=== PATIENT | female | born 1955 | race Caucasian/White ===

== ENCOUNTER 2022-05-14 15:32 | Inpatient (IN) | payer OTHER ==
[2022-05-14 16:20] LABS: Basophils # (A) 0.1 k/uL (0-0.2); Basophils % (A) 1 %; Eosinophils % (A) 0 %; HCT 37.9 % (34.0-46.0); HGB 12.9 gm/dL (11.4-16.0); Lymphocytes # (A) 2.2 k/uL (1.0-4.8); Lymphocytes % (A) 23 %; MCV 88.1 fL (80.0-100.0); Mean Platelet Volume 8.2; Monocytes # (A) 0.7 k/uL (0-1.0); Monocytes % (A) 7 %; Neutrophils # (A) 6.7 k/uL (1.3-7.7); Neutrophils % (A) 68 %; Platelet Count 254 k/uL (150-450); RDW 12.8 % (11.5-15.5); WBC 9.9 k/uL (3.8-10.6)
[2022-05-14 16:30] LABS: Calcium 9.6 mg/dL (8.4-10.2); Potassium 3.1 mmol/L (3.5-5.1)
--- NOTE | 2022-05-14 16:31 | ED ---
General Adult HPI - General Chief complaint: Psychiatric Symptoms Stated complaint: Psyche Time Seen by Provider: 05/14/22 15:50 Source: patient, EMS, RN notes reviewed, old records reviewed Mode of arrival: EMS Limitations: no limitations - History of Present Illness Initial comments: This is a 66-year-old female presents emergency department from the snf where she was hallucinating and becoming very paranoid according to staff patient was petition to come in to the emergency department to be evaluated. Patient has to self thinks that some of the staff are mean to her and she claims a tractor and roommates left her lying on the floor. Patient denies any physical complaints today. Patient denies any chest pain or abdominal pain. Patient denies any difficulty breathing shortness of breath. Patient denies any fever chills or cough. Patient denies any vomiting or diarrhea. - Related Data Home Medications Medication Instructions Recorded Confirmed Acetaminophen Tab [Tylenol Tab] 500 mg PO Q8H PRN 05/14/22 05/14/22 Aspirin EC [Ecotrin Low Dose] 81 mg PO DAILY@79905/14/22 05/14/22 Clopidogrel [Plavix] 75 mg PO DAILY@79905/14/22 05/14/22 Ezetimibe [Zetia] 10 mg PO HS@199905/14/22 05/14/22 Fluticasone Nasal [place] [Flonase 1 spray EA NOSTRIL DAILY@79905/14/22 05/14/22 Nasal [place]] INSULIN LISPRO (HumaLOG) [humaLOG] See Protocol SQ ACHS 05/14/22 05/14/22 Insulin Detemir (Levemir) [Levemir] 11 unit SQ Q12H 05/14/22 05/14/22 LORazepam 0.5 mg PO Q8H PRN 05/14/22 05/14/22 Levothyroxine Sodium [Synthroid] 150 mcg PO DAILY@59905/14/22 05/14/22 Lidocaine/Menthol [Icy Hot 4%-1% 1 patch TRANSDERM Q12H 05/14/22 05/14/22 Patch] Loratadine 10 mg PO DAILY@79905/14/22 05/14/22 Losartan [Cozaar] 50 mg PO DAILY@79905/14/22 05/14/22 Melatonin 5 mg PO HS@199905/14/22 05/14/22 Methylphenidate HCl [Ritalin] 5 mg PO BID 05/14/22 05/14/22 Metoprolol Succinate (ER) [Toprol 75 mg PO DAILY@0800 05/14/22 05/14/22 Xl] Nicotine 7Mg/24Hr Patch [Habitrol] 1 patch TRANSDERM DAILY@0800 05/14/22 05/14/22 Omeprazole 20 mg PO DAILY@0800 05/14/22 05/14/22 Sertraline [Zoloft] 50 mg PO BID@0800,1600 05/14/22 05/14/22 amLODIPine [Norvasc] 10 mg PO DAILY@0800 05/14/22 05/14/22 fluPHENAZine [Prolixin 5MG] 5 mg PO DAILY@0800 05/14/22 05/14/22 guaiFENesin [Mucinex] 600 mg PO Q12H 05/14/22 05/14/22 hydrALAZINE HCL 25 mg PO Q8H 05/14/22 05/14/22 Allergies Allergy/AdvReac Type Severity Reaction Status Date / Time pregabalin [From Lyrica] Allergy Unknown Verified 05/14/22 17:56 [id number] Reductase Allergy Unknown Verified 05/14/22 17:56 Inhibitor Sulfa (Sulfonamide Allergy Unknown Verified 05/14/22 17:56 Antibiotics) sulfacetamide Allergy Unknown Verified 05/14/22 17:56 [From Sulfacet-R] sulfur [From Sulfacet-R] Allergy Unknown Verified 05/14/22 17:56 Review of Systems ROS Statement: Those systems with pertinent positive or pertinent negative responses have been documented in the HPI. ROS Other: All systems not noted in ROS Statement are negative. Past Medical History Past Medical History: Diabetes Mellitus, Hyperlipidemia, Hypertension, Seizure Disorder, Thyroid Disorder History of Any Multi-Drug Resistant Organisms: None Reported Past Surgical History: Unable to Obtain Past Psychological History: Depression, Schizophrenia Smoking Status: Never smoker Past Alcohol Use History: None Reported Past Drug Use History: None Reported General Exam - General Exam Comments Initial Comments: GENERAL: Patient is well-developed and well-nourished. Patient is nontoxic and well- hydrated and is in mild distress. ENT: Neck is soft and supple. No significant lymphadenopathy is noted. Oropharynx is clear. Moist mucous membranes. Neck has full range of motion without eliciting any pain. EYES: The sclera were anicteric and conjunctiva were pink and moist. Extraocular movements were intact and pupils were equal round and reactive to light. Eyelids were unremarkable. PULMONARY: Unlabored respirations. Good breath sounds bilaterally. No audible rales rhonchi or wheezing was noted. CARDIOVASCULAR: There is a regular rate and rhythm without any murmurs gallops or rubs. ABDOMEN: Soft and nontender with normal bowel sounds. SKIN: Skin is clear with no lesions or rashes and otherwise unremarkable. NEUROLOGIC: Patient is alert and oriented x3. Cranial nerves II through XII are grossly intact. Motor and sensory are also intact. Normal speech, volume and content. Symmetrical smile. MUSCULOSKELETAL: Normal extremities with adequate strength and full range of motion. LYMPHATICS: No significant lymphadenopathy is noted PSYCHIATRIC: Patient does seem to think that staff members her purposely not treating good. Patient denies any suicidal homicidal ideations Limitations: no limitations Course Vital Signs 05/14/22 15:41 Temperature 98.2 F Pulse Rate 79 Respiratory 18 Rate Blood Pressure 100/73 O2 Sat by Pulse 98 Oximetry Medical Decision Making - Medical Decision Making Patient tested positive for COVID. I gave the patient monoclonal antibodies because the COVID diagnosis was not the reason for her admission. She was admitted for her psychiatric problems but could not go to the psychiatric floor because she had COVID. - Lab Data Result diagrams: 05/14/22 16:00 05/14/22 16:00 Lab Results 05/14/22 05/14/22 05/14/22 Range/Units 16:00 16:00 18:50 WBC 9.9 (3.8-10.6) k/uL RBC 4.30 (3.80-5.40) m/uL Hgb 12.9 (11.4-16.0) gm/dL Hct 37.9 (34.0-46.0) % MCV 88.1 (80.0-100.0) fL MCH 30.0 (25.0-35.0) pg MCHC 34.0 (31.0-37.0) g/dL RDW 12.8 (11.5-15.5) % Plt Count 254 (150-450) k/uL MPV 8.2 Neutrophils % 68 % Lymphocytes % 23 % Monocytes % 7 % Eosinophils % 0 % Basophils % 1 % Neutrophils # 6.7 (1.3-7.7) k/uL Lymphocytes # 2.2 (1.0-4.8) k/uL Monocytes # 0.7 (0-1.0) k/uL Eosinophils # 0.0 (0-0.7) k/uL Basophils # 0.1 (0-0.2) k/uL Sodium 137 (137-145) mmol/L Potassium 3.1 L (3.5-5.1) mmol/L Chloride 99 (98-107) mmol/L Carbon Dioxide 24 (22-30) mmol/L Anion Gap 14 mmol/L BUN 32 H (7-17) mg/dL Creatinine 2.03 H (0.52-1.04) mg/dL Est GFR (CKD-EPI)AfAm 29 (>60 ml/min/1.73 sqM) Est GFR (CKD-EPI)NonAf 25 (>60 ml/min/1.73 sqM) Glucose 119 H (74-99) mg/dL Calcium 9.6 (8.4-10.2) mg/dL Coronavirus (PCR) Detected A (Not Detectd) Disposition Clinical Impression: Acute psychosis, COVID-19, Hypokalemia, Renal insufficiency Disposition: ADMITTED IP TO THIS HOSP Referrals: Nonstaff,Physician [Primary Care Provider] - 1-2 days Time of Disposition: 19:46
[2022-05-14] MEDS ORDERED: POTASSIUM CHLORIDE ER 20 MEQ TAB.ER PO STA ×2 (19:29→23:06)
[2022-05-14] MEDS ORDERED: SODIUM CHLORIDE 0.9% 1,000 ML IV ONE (19:50)
--- NOTE | 2022-05-14 19:57 | XR ---
EXAMINATION TYPE: XR chest 2V DATE OF EXAM: 05/14/2022 COMPARISON: NONE HISTORY: Difficulty breathing TECHNIQUE: Frontal and lateral views of the chest are obtained. FINDINGS: There is no focal air space opacity, pleural effusion, or pneumothorax seen. The cardiac silhouette size is within normal limits. The osseous structures are intact. IMPRESSION: No acute cardiopulmonary process.
[2022-05-14] MEDS ORDERED: BEBTELOVIMAB (EUA) 175 MG/2 ML VIAL IV ONE (20:00)
[2022-05-14] MEDS ORDERED: MENTHOL TRANSDERM SCH (23:15)
[2022-05-14] MEDS ORDERED: LIDOCAINE TRANSDERM SCH (23:15)
[2022-05-14] MEDS: guaiFENesin 600 MG TABLET.ER PO SCH (23:17)
[2022-05-14] MEDS: ACETAMINOPHEN TAB 500 MG TAB PO PRN (23:50)
[2022-05-15] MEDS: LEVOTHYROXINE 75 MCG TAB PO SCH (06:35)
[2022-05-15 07:26] LABS: Glucose,Whole Blood 105 mg/dL (70-110)
[2022-05-15] MEDS: INSULIN ASPART (NovoLOG) 100 UNIT/ML VIAL SQ SCH ×4 (08:39→19:43)
[2022-05-15 09:06] LABS: Basophils # (A) 0.04 X 10*3/uL (0.00-0.10); Basophils % (A) 0.6 %; Eosinophils # (A) 0.02 X 10*3/uL (0.04-0.35); Eosinophils % (A) 0.3 %; HCT 34.7 % (37.2-46.3); Immature Grans, Automated 0.4 %; Lymphocytes # (A) 1.38 X 10*3/uL (0.90-5.00); Lymphocytes % (A) 20.1 %; MCH 30.1 pg (27.0-32.0); MCHC 34.6 g/dL (32.0-37.0); Mean Platelet Volume 10.2 fL (9.5-12.2); Monocytes # (A) 0.99 X 10*3/uL (0.20-1.00); Monocytes % (A) 14.4 %; NRBC Per 100 WBC 0 /100 WBCS (0.0-0.0); Neutrophils # (A) 4.42 X 10*3/uL (1.80-7.70); Neutrophils % (A) 64.2 %; Platelet Count 219 X 10*3/uL (140-440); RBC 3.99 X 10*6/uL (4.10-5.20); RDW 12.7 % (11.5-14.5); WBC 6.88 X 10*3/uL (4.50-10.00)
[2022-05-15 09:13] LABS: Anion Gap 13.7 mmol/L (10.00-18.00); BUN/Creat Ratio 20.59 Ratio (12.00-20.00); Blood Urea Nitrogen 27.8 mg/dL (9.0-27.0); Calcium 9.4 mg/dL (8.7-10.3); Magnesium 2.3 mg/dL (1.5-2.4); Non-African American GFR(CKD) 41.4 (60.0-200.0); Potassium 3.7 mmol/L (3.5-5.5)
[2022-05-15] MEDS: amLODIPine 5 MG TAB PO SCH (10:23)
[2022-05-15] MEDS: CHOLECALCIFEROL 125 MCG (5000 IU) TABLET PO SCH (10:23)
[2022-05-15] MEDS: CLOPIDOGREL 75 MG TAB PO SCH (10:23)
[2022-05-15] MEDS: ZINC SULFATE 220 MG CAP PO SCH (10:24)
[2022-05-15] MEDS: METOPROLOL SUCCINATE (ER) 25 MG TAB.ER.24H PO SCH (10:24)
[2022-05-15] MEDS: LORATADINE 10 MG TAB PO SCH (10:24)
[2022-05-15] MEDS: ASPIRIN 81 MG PO SCH (10:24)
[2022-05-15] MEDS: PANTOPRAZOLE 40 MG TABLET PO SCH (10:24)
[2022-05-15] MEDS: ASCORBIC ACID 500 MG TAB PO SCH (10:24)
[2022-05-15] MEDS: FLUTICASONE 50MCG/SPRAY NASAL 16GM EA NOSTRIL SCH (10:30)
[2022-05-15] MEDS: NICOTINE 7MG/24HR PATCH TRANSDERM SCH (10:31)
[2022-05-15] MEDS: guaiFENesin 600 MG TABLET.ER PO SCH ×2 (10:38→19:38)
[2022-05-15] MEDS: ACETAMINOPHEN TAB 500 MG TAB PO PRN ×2 (11:23→19:38)
[2022-05-15 11:50] LABS: Glucose,Whole Blood 120 mg/dL (70-110)
[2022-05-15 12:06] LABS: Amorphous Sediment,Urine Rare /hpf; Appearance,Urine Cloudy (Clear); Bacteria,Urine Rare /hpf; Bilirubin,Urine Negative (Negative); Blood,Urine Trace (Negative); Color,Urine Yellow; Glucose,Urine (UA) Negative (Negative); Ketones,Urine Trace (Negative); Leukocyte Esterase,Urine Large (Negative); Mucus,Urine Rare /hpf; Nitrite,Urine Negative (Negative); PH, Urine 5.5 (5.0-8.0); Protein,Urine 1+ (Negative); RBC,Urine 4 /hpf (0-5); Specific Gravity,Urine 1.018 (1.001-1.035); Squamous Epithelial Cell,Urine <1 /hpf (0-4); Urobilinogen,Urine <2.0 mg/dL (<2.0); WBC,Urine 15 /hpf (0-5)
[2022-05-15 12:12] LABS: Amphetamine Screen,Urine Not Detected (NotDetected); Barbiturate Screen,Urine Not Detected (NotDetected); Benzodiazepines Screen,Urine Detected (NotDetected); Cocaine Screen,Urine Not Detected (NotDetected); Methadone Screen, Urine Not Detected (NotDetected); Opiate Screen,Urine Not Detected (NotDetected); Oxycodone Screen, Urine Not Detected (NotDetected); Phencyclidine Screen,Urine Not Detected (NotDetected); Tricyclic Antidepressant,Urine Not Detected (NotDetected); Urn Cannabinoid Scrn Not Detected (NotDetected)
--- NOTE | 2022-05-15 14:33 | P.HP ---
Psychiatric H&P - . H&P Date: 05/15/22 History & Physical: IDENTIFYING DATA: This patient is a single, unemployed, 66-year-old female with a reported history of seizure disorder who presented to the hospital on 05/14/2022, presenting from [facility] for increased paranoia, suicidal ideation, and self injuriour behavior. HISTORY OF PRESENT ILLNESS: The patient presented to the hospital on 05/14/2022, from [facility] for a psychiatric evaluation. The patient is currently under a court order for mental health treatment from [facility]. The patient presented in the emergency department as disheveled, alert and oriented 2, with poor eye contact, and endorsing suicidal ideation. The patient is reportedly under court order for mental health treatment until 08/18/2022. The patient is currently a resident of [facility] after having suffered a stroke. The patient's brother Lazaro is noted to be her legal guardian. Initially, the plan is to have the patient admitted to the psychiatric unit however she did test positive for covid. Upon evaluation on the medical floor, the patient is a poor historian events leading up to this hospitalization. She is unable to recall why she was brought to the hospital. She is minimal in conversation and appears to be quite somnol ent. When trying to assess for any psychiatric symptoms, the patient is nonspontaneous and selectively quiet. She does acknowledge that her brother would probably be the best answer questions. She does admit to suicidal ideation. Although she does have some psychiatric history, patient is unable to recall what medication she has been previously prescribed. This provider attempted to contact her brother Lazaro Cabello who is her legal guardian at [phone] multiple times today. I have left a HIPAA compliant voicemail in order to get in touch as history is limited. PAST PSYCHIATRIC HISTORY: We are unable to obtain any psychiatric history at this time. Previous medications as per chart review indicates that the patient is on a regimen of Prolixin, Zoloft, and Ritalin. PAST MEDICAL HISTORY: Past Medical History: Diabetes Mellitus, Hyperlipidemia, Hypertension, Seizure Disorder, Thyroid Disorder History of Any Multi-Drug Resistant Organisms: None Reported Past Surgical History: Unable to Obtain Past Psychological History: Depression, Schizophrenia Smoking Status: Never smoker Past Alcohol Use History: None Reported Past Drug Use History: None Reported ALLERGIES: Sulfa, sulfur, pregabalin, statins CHEMICAL DEPENDENCY HISTORY: Unable to determine FAMILY PSYCHIATRIC/SUBSTANCE USE HISTORY: Unable to determine SOCIAL HISTORY: Patient is currently a resident of [facility]. Her brother is her guardian. She is currently under court order for psychiatric treatment. MENTAL STATUS EXAM: General Appearance: Patient appears to be stated age is somnolent, with obese body habitus. Patient appears to have fair hygiene and grooming wearing hospital gown with poor eye contact. Behavior: Patient is lying down in bed without any agitated behavior. She is quite somnolent. Speech: Patient's speech is fluent and nonpressured. Mood/Affect: Patient reports their mood is "tired." Affect is congruent and somnolent. Suicidality/Homicidality: Unable to assess Perceptions: Unable to assess Though content/process: Unable to assess Memory and concentration: Patient is alert and oriented to person at this time. Concentration appears to be poor. Judgment and insight: poor Vital Signs Temp 98.1 F 05/15/22 08:21 Pulse 80 05/15/22 08:21 Resp 15 05/15/22 08:21 BP 153/97 05/15/22 08:21 Pulse Ox 98 05/15/22 08:21 FiO2 Intake & Output 05/14/22 05/15/22 05/15/22 18:59 06:59 18:59 Output Total 300 300 Balance -300 -300 Weight 99.79 kg 99.79 kg Output: Urine 300 300 Straight 300 300 Other: Voiding Method Toilet Laboratory Results - Last 24 Hours 05/14/22 05/14/22 05/14/22 16:00 16:00 18:50 WBC 9.9 RBC 4.30 Hgb 12.9 Hct 37.9 MCV 88.1 MCH 30.0 MCHC 34.0 RDW 12.8 Plt Count 254 MPV 8.2 Immature Gran % (Auto) Absolute Nucleated RBC Neutrophils % 68 Lymphocytes % 23 Monocytes % 7 Eosinophils % 0 Basophils % 1 Immature Gran # Neutrophils # 6.7 Lymphocytes # 2.2 Monocytes # 0.7 Eosinophils # 0.0 Basophils # 0.1 NRBC/100 WBC Diff Sodium 137 Potassium 3.1 L Chloride 99 Carbon Dioxide 24 Anion Gap 14 BUN 32 H Creatinine 2.03 H Est GFR (CKD-EPI)AfAm 29 Est GFR (CKD-EPI)NonAf 25 BUN/Creatinine Ratio Glucose 119 H POC Glucose (mg/dL) POC Glu [employer] Education Teacher ID Calcium 9.6 Magnesium Urine Color Urine Appearance Urine pH Ur Specific [place] Urine Protein Urine Glucose (UA) Urine Ketones Urine Blood Urine Nitrite Urine Bilirubin Urine Urobilinogen Ur Leukocyte Esterase Urine RBC Urine WBC Ur Squamous Epith Cells Amorphous Sediment Urine Bacteria Urine Mucus Urine Opiates Screen Ur Oxycodone Screen Urine Methadone Screen Ur Propoxyphene Screen Ur Barbiturates Screen U Tricyclic Antidepress Ur Phencyclidine Scrn Ur Amphetamines Screen U Methamphetamines Scrn U Benzodiazepines Scrn Urine Cocaine Screen U Marijuana (THC) Screen Coronavirus (PCR) Detected A 05/15/22 05/15/22 05/15/22 06:13 06:13 07:24 WBC 6.88 RBC 3.99 L Hgb 12.0 Hct 34.7 L MCV 87.0 MCH 30.1 MCHC 34.6 RDW 12.7 Plt Count 219 MPV 10.2 Immature Gran % (Auto) 0.4 Absolute Nucleated RBC 0 Neutrophils % 64.2 Lymphocytes % 20.1 Monocytes % 14.4 Eosinophils % 0.3 Basophils % 0.6 Immature Gran # 0.03 Neutrophils # 4.42 Lymphocytes # 1.38 Monocytes # 0.99 Eosinophils # 0.02 L Basophils # 0.04 NRBC/100 WBC Diff 0 Sodium 140 Potassium 3.7 Chloride 103 Carbon Dioxide 23.0 Anion Gap 13.70 BUN 27.8 H Creatinine 1.4 Est GFR (CKD-EPI)AfAm 48.0 L Est GFR (CKD-EPI)NonAf 41.4 L BUN/Creatinine Ratio 20.59 H Glucose 105 POC Glucose (mg/dL) 105 POC Glu Career Technical Education Teacher ID [place] luna Calcium 9.4 Magnesium 2.3 Urine Color Urine Appearance Urine pH Ur Specific [place] Urine Protein Urine Glucose (UA) Urine Ketones Urine Blood Urine Nitrite Urine Bilirubin Urine Urobilinogen Ur Leukocyte Esterase Urine RBC Urine WBC Ur Squamous Epith Cells Amorphous Sediment Urine Bacteria Urine Mucus Urine Opiates Screen Ur Oxycodone Screen Urine Methadone Screen Ur Propoxyphene Screen Ur Barbiturates Screen U Tricyclic Antidepress Ur Phencyclidine Scrn Ur Amphetamines Screen U Methamphetamines Scrn U Benzodiazepines Scrn Urine Cocaine Screen U Marijuana (THC) Screen Coronavirus (PCR) 05/15/22 05/15/22 05/15/22 11:44 11:44 11:47 WBC RBC Hgb Hct MCV MCH MCHC RDW Plt Count MPV Immature Gran % (Auto) Absolute Nucleated RBC Neutrophils % Lymphocytes % Monocytes % Eosinophils % Basophils % Immature Gran # Neutrophils # Lymphocytes # Monocytes # Eosinophils # Basophils # NRBC/100 WBC Diff Sodium Potassium Chloride Carbon Dioxide Anion Gap BUN Creatinine Est GFR (CKD-EPI)AfAm Est GFR (CKD-EPI)NonAf BUN/Creatinine Ratio Glucose POC Glucose (mg/dL) 120 H POC Glu Career Technical Education Teacher ID luna, [place] Calcium Magnesium Urine Color Yellow Urine Appearance Cloudy H Urine pH 5.5 Ur Specific [place] 1.018 Urine Protein 1+ H Urine Glucose (UA) Negative Urine Ketones Trace H Urine Blood Trace H Urine Nitrite Negative Urine Bilirubin Negative Urine Urobilinogen <2.0 Ur Leukocyte Esterase Large H Urine RBC 4 Urine WBC 15 H Ur Squamous Epith Cells <1 Amorphous Sediment Rare H Urine Bacteria Rare H Urine Mucus Rare H Urine Opiates Screen Not Detected Ur Oxycodone Screen Not Detected Urine Methadone Screen Not Detected Ur Propoxyphene Screen Not Detected Ur Barbiturates Screen Not Detected U Tricyclic Antidepress Not Detected Ur Phencyclidine Scrn Not Detected Ur Amphetamines Screen Not Detected U Methamphetamines Scrn Not Detected U Benzodiazepines Scrn Detected H Urine Cocaine Screen Not Detected U Marijuana (THC) Screen Not Detected Coronavirus (PCR) IMPRESSIONS: Acute psychosis; as per history the patient has schizophrenia. -Acute psychosis may been exacerbated by active infection, side effect of Ritalin, prolonged hospitalization, or just an acute exacerbation of chronic schizophrenia. Covid-19 infection PLAN: -At this time patient DOES meet criteria for inpatient psychiatric admission. However, the patient has Covid. -Would recommend the following medication changes/additions: Continue to hold Ritalin. Continue to hold Zoloft. We will restart the patient's antipsychotic of Prolixin at this time. -Will continue to try and obtain collateral information from the patient's guardian. This provider has left a HIPAA compliant voicemail after numerous attempts to try and reach him. -Continue 1:1 sitter for safety -Cannot leave AMA at this time. Patient will need a petition and certification if attempting to leave AMA. -Will continue to follow along -When medically stable, patient is eligible for transfer to a psych bed when available. 05/15/22 14:33
[2022-05-15 16:35] LABS: Glucose,Whole Blood 122 mg/dL (70-110)
[2022-05-15 19:31] LABS: Glucose,Whole Blood 144 mg/dL (70-110)
[2022-05-15] MEDS: EZETIMIBE 10 MG TAB PO SCH (19:38)
[2022-05-15] MEDS: MELATONIN 5 MG TABLET PO SCH (19:38)
--- NOTE | 2022-05-15 22:10 | P.HPIM ---
History of Present Illness H&P Date: 05/15/22 Patient is a 66-year-old female with a known history of hypertension, hyperlipidemia, GERD, diabetes type 2 insulin-dependent, seizure disorder, hypothyroidism, ADD/ADHD, schizophrenia and previous history of smoking was sent from [facility] due to acute psychosis. Patient has been hallucinating and has been becoming very paranoid to staff. Patient was petitioned and was sent to ER. Patient otherwise poor historian. Denies any complaints of chest pain or shortness of breath. Patient has been afebrile admission. Blood pressure 100/73 and pulse 79 respiration 18 pulse ox 98% on room air. Chest x-ray showed no acute cardiopulmonary process. Laboratory showed WBC 6.8 hemoglobin 12.0 and platelets 219, sodium 137 potassium 3.1 chloride 99 BUN 32 and creatinine 2.03 Magnesium 2.3 Urinalysis showed cloudy with 1+ protein and large leukocyte esterase with WBCs 15. UDS is positive for benzodiazepines. Coronavirus PCR detected. Review of Systems Complete review of systems could not be obtained from the patient except as per HPI. Past Medical History Past Medical History: Diabetes Mellitus, GERD/Reflux, Hyperlipidemia, Hypertension, Seizure Disorder, Thyroid Disorder Additional Past Medical History / Comment(s): Hypothyroidism, falls, unspecifies psychosis, constipation, muscle spasm History of Any Multi-Drug Resistant Organisms: None Reported Past Surgical History: Unable to Obtain Past Psychological History: ADD/ADHD, Depression, Schizophrenia Additional Psychological History / Comment(s): acute psychosis Smoking Status: Former smoker Past Alcohol Use History: None Reported Past Drug Use History: None Reported Medications and Allergies Home Medications Medication Instructions Recorded Confirmed Type Acetaminophen Tab [Tylenol Tab] 500 mg PO Q8H PRN 05/14/22 05/14/22 History Aspirin EC [Ecotrin Low Dose] 81 mg PO DAILY@79905/14/22 05/14/22 History Clopidogrel [Plavix] 75 mg PO DAILY@79905/14/22 05/14/22 History Ezetimibe [Zetia] 10 mg PO HS@199905/14/22 05/14/22 History Fluticasone Nasal [place] [Flonase 1 spray EA NOSTRIL DAILY@79905/14/22 05/14/22 History Nasal [place]] INSULIN LISPRO (HumaLOG) [humaLOG] See Protocol SQ ACHS 05/14/22 05/14/22 History Insulin Detemir (Levemir) [Levemir] 11 unit SQ Q12H 05/14/22 05/14/22 History LORazepam 0.5 mg PO Q8H PRN 05/14/22 05/14/22 History Levothyroxine Sodium [Synthroid] 150 mcg PO DAILY@0605/14/22 05/14/22 History Lidocaine/Menthol [Icy Hot 4%-1% 1 patch TRANSDERM Q12H 05/14/22 05/14/22 History Patch] Loratadine 10 mg PO DAILY@0805/14/22 05/14/22 History Losartan [Cozaar] 50 mg PO DAILY@79905/14/22 05/14/22 History Melatonin 5 mg PO HS@199905/14/22 05/14/22 History Methylphenidate HCl [Ritalin] 5 mg PO BID 05/14/22 05/14/22 History Metoprolol Succinate (ER) [Toprol 75 mg PO DAILY@0805/14/22 05/14/22 History Xl] Nicotine 7Mg/24Hr Patch [Habitrol] 1 patch TRANSDERM DAILY@0805/14/22 05/14/22 History Omeprazole 20 mg PO DAILY@0805/14/22 05/14/22 History Sertraline [Zoloft] 50 mg PO BID@0800,1600 05/14/22 05/14/22 History amLODIPine [Norvasc] 10 mg PO DAILY@0800 05/14/22 05/14/22 History fluPHENAZine [Prolixin 5MG] 5 mg PO DAILY@0800 05/14/22 05/14/22 History guaiFENesin [Mucinex] 600 mg PO Q12H 05/14/22 05/14/22 History hydrALAZINE HCL 25 mg PO Q8H 05/14/22 05/14/22 History Allergies Allergy/AdvReac Type Severity Reaction Status Date / Time pregabalin [From Lyrica] Allergy Unknown Verified 05/14/22 17:56 Joyldhi-BPR-RiD Reductase Allergy Unknown Verified 05/14/22 17:56 Inhibitor Sulfa (Sulfonamide Allergy Unknown Verified 05/14/22 17:56 Antibiotics) sulfacetamide Allergy Unknown Verified 05/14/22 17:56 [From Sulfacet-R] sulfur [From Sulfacet-R] Allergy Unknown Verified 05/14/22 17:56 Physical Exam Vitals: Vital Signs Temp Pulse Pulse Resp BP BP Pulse Ox 05/15/22 08:21 98.1 F 80 15 153/97 98 05/15/22 01:54 98.4 F 78 14 114/76 98 05/14/22 23:30 76 16 05/14/22 22:58 98 F 76 16 131/92 97 05/14/22 22:07 73 18 152/98 99 05/14/22 15:41 98.2 F 79 18 100/73 98 Intake and Output 05/14/22 05/15/22 05/15/22 22:59 06:59 14:59 Output Total 300 Balance -300 Output: Urine 300 Straight 300 Other: Voiding Method Toilet Weight 99.79 kg 99.79 kg PHYSICAL EXAMINATION: Patient is lying in the bed comfortably, no acute distress, awake alert bur not communicating HEENT: Normocephalic. Neck is supple. Pupils reactive. Nostrils clear. Oral cavity is moist. Neck reveals no JVD, carotid bruits, or thyromegaly. CHEST EXAMINATION: Trachea is central. Symmetrical expansion. Lung [place] clear to auscultation and percussion. CARDIAC: Normal S1, S2 with no gallops. No murmurs ABDOMEN: Soft. Bowel sounds present. Nontender. No organomegaly. No abdominal bruits. Extremities: reveal no edema. No clubbing or cyanosis Neurologically awake, alert, with well-coordinated movements. No focal deficits noted Skin: No rash or skin lesions. Psychiatric: Coperative. anxious. Musculoskeletal: No joint swelling or deformity. Normal range of motion. Results CBC & Chem 7: 05/16/22 08:03 05/16/22 08:03 Labs: Abnormal Lab Results - Last 24 Hours (Table) 05/14/22 05/14/22 05/15/22 Range/Units 16:00 18:50 06:13 RBC 3.99 L (4.10-5.20) X 10*6/uL Hct 34.7 L (37.2-46.3) % Eosinophils # 0.02 L (0.04-0.35) X 10*3/uL Potassium 3.1 L (3.5-5.1) mmol/L BUN 32 H (7-17) mg/dL Creatinine 2.03 H (0.52-1.04) mg/dL Est GFR (CKD-EPI)AfAm (60.0-200.0) Est GFR (CKD-EPI)NonAf (60.0-200.0) BUN/Creatinine Ratio (12.00-20.00) Ratio Glucose 119 H (74-99) mg/dL Coronavirus (PCR) Detected A (Not Detectd) 05/15/22 Range/Units 06:13 RBC (4.10-5.20) X 10*6/uL Hct (37.2-46.3) % Eosinophils # (0.04-0.35) X 10*3/uL Potassium (3.5-5.1) mmol/L BUN 27.8 H (7-17) mg/dL Creatinine (0.52-1.04) mg/dL Est GFR (CKD-EPI)AfAm 48.0 L (60.0-200.0) Est GFR (CKD-EPI)NonAf 41.4 L (60.0-200.0) BUN/Creatinine Ratio 20.59 H (12.00-20.00) Ratio Glucose (74-99) mg/dL Coronavirus (PCR) (Not Detectd) Thrombosis Risk Factor Assmnt - DVT/VTE Prophylaxis DVT/VTE Prophylaxis: Pharmacologic Prophylaxis ordered Assessment and Plan Assessment: Acute psychosis likely due to worsening symptoms of schizophrenia with infection. Acute COVID-19 infection. Acute kidney injury likely prerenal with creatinine level 2.03 on admission Possible acute urinary tract infection Hypertension Diabetes type 2 insulin-dependent History of seizure disorder Hypothyroidism ADD/ADHD, Depression and schizophrenia Previous history of smoking DVT prophylaxis Lovenox subcu Plan: Patient will be continued on gentle IV hydration. Continue with multivitamin supplementation. Patient was given monoclonal antibodies in the ER. Vitamin supplementation and DVT prophylaxis Lovenox subcu. Current with home medications and follow-up inflammatory markers. Psychiatry was consulted due to acute psychosis. Recommends to hold [place] and continue to hold Zoloft. Continue with Prolixin and follow-up closely. Patient is agreeable for inpatient psychiatric admission once medically stable. Time with Patient: Greater than 30
[2022-05-16] MEDS: LEVOTHYROXINE 75 MCG TAB PO SCH (04:57)
[2022-05-16] MEDS: ACETAMINOPHEN TAB 500 MG TAB PO PRN ×3 (05:01→23:08)
[2022-05-16 07:48] LABS: Glucose,Whole Blood 107 mg/dL (70-110)
[2022-05-16] MEDS: INSULIN ASPART (NovoLOG) 100 UNIT/ML VIAL SQ SCH ×4 (07:50→21:26)
[2022-05-16] MEDS: NICOTINE 7MG/24HR PATCH TRANSDERM SCH (09:09)
[2022-05-16] MEDS: METOPROLOL SUCCINATE (ER) 25 MG TAB.ER.24H PO SCH (09:10)
[2022-05-16] MEDS: LORATADINE 10 MG TAB PO SCH (09:10)
[2022-05-16] MEDS: ASCORBIC ACID 500 MG TAB PO SCH (09:10)
[2022-05-16] MEDS: CLOPIDOGREL 75 MG TAB PO SCH (09:10)
[2022-05-16] MEDS: amLODIPine 5 MG TAB PO SCH (09:10)
[2022-05-16] MEDS: ENOXAPARIN 40 MG/0.4 ML SYRINGE SQ SCH (09:10)
[2022-05-16] MEDS: CHOLECALCIFEROL 125 MCG (5000 IU) TABLET PO SCH (09:10)
[2022-05-16] MEDS: FLUTICASONE 50MCG/SPRAY NASAL 16GM EA NOSTRIL SCH (09:10)
[2022-05-16] MEDS: ZINC SULFATE 220 MG CAP PO SCH (09:10)
[2022-05-16] MEDS: PANTOPRAZOLE 40 MG TABLET PO SCH (09:10)
[2022-05-16] MEDS: ASPIRIN 81 MG PO SCH (09:10)
[2022-05-16 11:43] LABS: Glucose,Whole Blood 129 mg/dL (70-110)
[2022-05-16 11:44] LABS: Basophils # (A) 0.05 X 10*3/uL (0.00-0.10); Basophils % (A) 1.1 %; Eosinophils # (A) 0.04 X 10*3/uL (0.04-0.35); Eosinophils % (A) 0.9 %; HCT 33.8 % (37.2-46.3); HGB 11.2 g/dL (12.0-15.0); Immature Grans, Automated 0.4 %; Lymphocytes # (A) 1.69 X 10*3/uL (0.90-5.00); Lymphocytes % (A) 37.9 %; MCH 29.2 pg (27.0-32.0); MCHC 33.1 g/dL (32.0-37.0); Mean Platelet Volume 10.3 fL (9.5-12.2); Monocytes # (A) 0.53 X 10*3/uL (0.20-1.00); Monocytes % (A) 11.9 %; NRBC Per 100 WBC 0 /100 WBCS (0.0-0.0); Neutrophils # (A) 2.13 X 10*3/uL (1.80-7.70); Neutrophils % (A) 47.8 %; Platelet Count 220 X 10*3/uL (140-440); RBC 3.84 X 10*6/uL (4.10-5.20); WBC 4.46 X 10*3/uL (4.50-10.00)
[2022-05-16 12:04] LABS: African American GFR (CKD) 61.4 (60.0-200.0); Anion Gap 10.7 mmol/L (10.00-18.00); BUN/Creat Ratio 18.55 Ratio (12.00-20.00); Blood Urea Nitrogen 20.4 mg/dL (9.0-27.0); C Reactive Protein 2.7 mg/dL (0.00-0.80); Calcium 8.7 mg/dL (8.7-10.3); Carbon Dioxide 22.3 mmol/L (20.0-27.5); Potassium 3.4 mmol/L (3.5-5.5)
[2022-05-16 16:46] LABS: Glucose,Whole Blood 119 mg/dL (70-110)
[2022-05-16] MEDS: guaiFENesin 600 MG TABLET.ER PO SCH ×2 (16:59→21:25)
[2022-05-16 20:36] LABS: Glucose,Whole Blood 84 mg/dL (70-110)
[2022-05-16] MEDS: EZETIMIBE 10 MG TAB PO SCH (21:25)
[2022-05-16] MEDS: MELATONIN 5 MG TABLET PO SCH (21:25)
[2022-05-17] MEDS ORDERED: lisinopriL 10 MG TAB PO STA (03:02)
[2022-05-17 06:58] LABS: Glucose,Whole Blood 89 mg/dL (70-110)
[2022-05-17] MEDS: INSULIN ASPART (NovoLOG) 100 UNIT/ML VIAL SQ SCH ×4 (07:39→21:57)
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
[2022-05-17] MEDS: CLOPIDOGREL 75 MG TAB PO SCH (08:02)
[2022-05-17] MEDS: ASCORBIC ACID 500 MG TAB PO SCH (08:02)
[2022-05-17] MEDS: CHOLECALCIFEROL 125 MCG (5000 IU) TABLET PO SCH (08:02)
[2022-05-17] MEDS: ZINC SULFATE 220 MG CAP PO SCH (08:02)
[2022-05-17] MEDS: PANTOPRAZOLE 40 MG TABLET PO SCH (08:02)
[2022-05-17] MEDS: ASPIRIN 81 MG PO SCH (08:03)
[2022-05-17] MEDS: ENOXAPARIN 40 MG/0.4 ML SYRINGE SQ SCH (08:03)
[2022-05-17] MEDS: LORATADINE 10 MG TAB PO SCH (08:03)
[2022-05-17] MEDS: METOPROLOL SUCCINATE (ER) 25 MG TAB.ER.24H PO SCH (08:03)
[2022-05-17] MEDS: LEVOTHYROXINE 75 MCG TAB PO SCH (08:03)
[2022-05-17] MEDS: amLODIPine 5 MG TAB PO SCH (08:03)
[2022-05-17] MEDS: NICOTINE 7MG/24HR PATCH TRANSDERM SCH (08:04)
[2022-05-17] MEDS: FLUTICASONE 50MCG/SPRAY NASAL 16GM EA NOSTRIL SCH (08:05)
[2022-05-17 11:42] LABS: Glucose,Whole Blood 131 mg/dL (70-110)
[2022-05-17] MEDS: guaiFENesin 600 MG TABLET.ER PO SCH ×2 (11:48→22:05)
[2022-05-17] MEDS: ACETAMINOPHEN TAB 500 MG TAB PO PRN ×2 (11:48→23:37)
[2022-05-17 16:51] LABS: Glucose,Whole Blood 110 mg/dL (70-110)
[2022-05-17 21:56] LABS: Glucose,Whole Blood 99 mg/dL (70-110)
[2022-05-17] MEDS: hydrALAZINE HCL 25 MG TAB PO SCH (22:04)
[2022-05-17] MEDS: EZETIMIBE 10 MG TAB PO SCH (22:04)
[2022-05-17] MEDS: MELATONIN 5 MG TABLET PO SCH (22:04)
[2022-05-17] MEDS: LOSARTAN 50 MG TAB PO SCH (22:04)
[2022-05-17] MEDS ORDERED: hydrALAZINE HCL 25 MG TAB PO STA (23:54)
--- NOTE | 2022-05-18 00:35 | P.PN ---
Subjective Progress Note Date: 05/16/22 Patient is a 66-year-old female with a known history of hypertension, hyperlipidemia, GERD, diabetes type 2 insulin-dependent, seizure disorder, hypothyroidism, ADD/ADHD, schizophrenia and previous history of smoking was sent from [facility] due to acute psychosis. Patient has been hallucinating and suero s been becoming very paranoid to staff. Patient was petitioned and was sent to ER. Patient otherwise poor historian. Denies any complaints of chest pain or shortness of breath. Patient has been afebrile admission. Blood pressure 100/73 and pulse 79 respiration 18 pulse ox 98% on room air. Chest x-ray showed no acute cardiopulmonary process. Laboratory showed WBC 6.8 hemoglobin 12.0 and platelets 219, sodium 137 potassium 3.1 chloride 99 BUN 32 and creatinine 2.03 Magnesium 2.3 Urinalysis showed cloudy with 1+ protein and large leukocyte esterase with WBCs 15. UDS is positive for benzodiazepines. Coronavirus PCR detected. 05/16/2022 Patient is currently lying in the bed. Awake alert. Sitter at bedside. No complaints of chest pain or shortness of breath. Patient was seen by psychiatry. Patient was started on antipsychotics, Prolixin. Patient currently remained. Otherwise patient is on room air. Laboratory data showed WBC 4.4 hemoglobin 11.2 and platelets 220 Sodium 140 potassium 3.4 chloride 107 bicarb is 22.3 BUN 20.4 and creatinine 1.1 and blood sugar is 114 CRP 2.7 and LDH 158. Current medications reviewed. Patient is on antibiotics in the form of ceftriaxone for possible urinary tract infection. Follow-up urine culture. Objective - Vital Signs Vital signs: Vital Signs Temp 97.3 F L 05/16/22 14:00 Pulse 74 05/16/22 14:00 Resp 17 05/16/22 14:00 BP 155/83 05/16/22 14:00 Pulse Ox 96 05/16/22 14:00 FiO2 Intake & Output 05/15/22 05/16/22 05/16/22 18:59 06:59 18:59 Intake Total 750 Output Total 600 Balance 150 Intake: Intake, IV Titration 750 Amount Sodium Chloride 0.9% 1, 750 000 ml @ 75 mls/hr IV . [id number] [facility] Rx#:[id number] Output: Urine 600 Straight 600 Other: Voiding Method Toilet # Voids 2 # Bowel Movements 1 - Exam PHYSICAL EXAMINATION: Patient is lying in the bed comfortably, no acute distress, awake alert bur not communicating HEENT: Normocephalic. Neck is supple. Pupils reactive. Nostrils clear. Oral cavity is moist. Neck reveals no JVD, carotid bruits, or thyromegaly. CHEST EXAMINATION: Trachea is central. Symmetrical expansion. Lung harrington clear to auscultation and percussion. CARDIAC: Normal S1, S2 with no gallops. No murmurs ABDOMEN: Soft. Bowel sounds present. Nontender. No organomegaly. No abdominal bruits. Extremities: reveal no edema. No clubbing or cyanosis Neurologically awake, alert, with well-coordinated movements. No focal deficits noted Skin: No rash or skin lesions. Psychiatric: Coperative. anxious. Musculoskeletal: No joint swelling or deformity. Normal range of motion. - Labs CBC & Chem 7: 05/16/22 08:03 05/16/22 08:03 Labs: Abnormal Lab Results - Last 24 Hours (Table) 05/15/22 05/15/22 05/16/22 Range/Units 16:33 19:29 08:03 WBC 4.46 L (4.50-10.00) X 10*3/uL RBC 3.84 L (4.10-5.20) X 10*6/uL Hgb 11.2 L (12.0-15.0) g/dL Hct 33.8 L (37.2-46.3) % Potassium (3.5-5.5) mmol/L Est GFR (CKD-EPI)NonAf (60.0-200.0) Glucose (70-110) mg/dL POC Glucose (mg/dL) 122 H 144 H (70-110) mg/dL C-Reactive Protein (0.00-0.80) mg/dL 05/16/22 05/16/22 Range/Units 08:03 11:40 WBC (4.50-10.00) X 10*3/uL RBC (4.10-5.20) X 10*6/uL Hgb (12.0-15.0) g/dL Hct (37.2-46.3) % Potassium 3.4 L (3.5-5.5) mmol/L Est GFR (CKD-EPI)NonAf 53.0 L (60.0-200.0) Glucose 114 H (70-110) mg/dL POC Glucose (mg/dL) 129 H (70-110) mg/dL C-Reactive Protein 2.70 H (0.00-0.80) mg/dL Microbiology - Last 24 Hours (Table) 05/15/22 11:44 Urine Culture - Preliminary Urine,Voided Assessment and Plan Assessment: Acute psychosis likely due to worsening symptoms of schizophrenia with infection. Acute COVID-19 infection. Acute kidney injury likely prerenal with creatinine level 2.03 on admission Possible acute urinary tract infection Hypertension Diabetes type 2 insulin-dependent History of seizure disorder Hypothyroidism ADD/ADHD, Depression and schizophrenia Previous history of smoking DVT prophylaxis Lovenox subcu Plan: Continue with multivitamin supplementation. Patient was given monoclonal antibodies in the ER. Vitamin supplementation and DVT prophylaxis Lovenox subcu. Current with home medications and follow-up inflammatory markers. Psychiatry was consulted due to acute psychosis. Recommends to hold ritalin and continue to hold Zoloft. Continue with Prolixin and follow-up closely. recommends inpatient psychiatric admission once medically stable. Time with Patient: Greater than 30
--- NOTE | 2022-05-18 00:48 | P.PN ---
Subjective Progress Note Date: 05/17/22 Patient is a 66-year-old female with a known history of hypertension, hyperlipidemia, GERD, diabetes type 2 insulin-dependent, seizure disorder, hypothyroidism, ADD/ADHD, schizophrenia and previous history of smoking was sent from [facility] due to acute psychosis. Patient has been hallucinating and suero s been becoming very paranoid to staff. Patient was petitioned and was sent to ER. Patient otherwise poor historian. Denies any complaints of chest pain or shortness of breath. Patient has been afebrile admission. Blood pressure 100/73 and pulse 79 respiration 18 pulse ox 98% on room air. Chest x-ray showed no acute cardiopulmonary process. Laboratory showed WBC 6.8 hemoglobin 12.0 and platelets 219, sodium 137 potassium 3.1 chloride 99 BUN 32 and creatinine 2.03 Magnesium 2.3 Urinalysis showed cloudy with 1+ protein and large leukocyte esterase with WBCs 15. UDS is positive for benzodiazepines. Coronavirus PCR detected. 05/16/2022 Patient is currently lying in the bed. Awake alert. Sitter at bedside. No complaints of chest pain or shortness of breath. Patient was seen by psychiatry. Patient was started on antipsychotics, Prolixin. Patient currently remained. Otherwise patient is on room air. Laboratory data showed WBC 4.4 hemoglobin 11.2 and platelets 220 Sodium 140 potassium 3.4 chloride 107 bicarb is 22.3 BUN 20.4 and creatinine 1.1 and blood sugar is 114 CRP 2.7 and LDH 158. Patient is on antibiotics in the form of ceftriaxone for possible urinary tract infection. Follow-up urine culture. 05/17/2022 Patient is currently sitting on the bed. Awake alert but not oriented. Patient does not know why she is in the hospital. Patient is still psychotic. No compl aints of chest pain. No nausea vomiting. No fever no chills. Tolerating oral diet. IV fluids have been discontinued. Blood sugars controlled. Anticipate discharge to inpatient psychiatric unit in the next 24 to 48 hours. Renal function did improve. Urine culture showed no growth. Current medications reviewed. Objective - Vital Signs Vital signs: Vital Signs Temp 97.9 F 05/17/22 18:56 Pulse 71 05/17/22 18:56 Resp 18 05/17/22 18:56 BP 174/100 05/17/22 19:31 Pulse Ox 98 05/17/22 18:56 FiO2 Intake & Output 05/17/22 05/17/22 05/18/22 06:59 18:59 06:59 Intake Total 150 Output Total 675 400 Balance -525 -400 Intake: Intake, IV Titration 50 Amount cefTRIAXone 1 gm In 50 Sodium Chloride 0.9% 50 ml @ 100 mls/hr IVPB Q24H [facility] Rx#:[id number] Oral 100 Output: Urine 675 400 Straight 325 Other: Voiding Method Toilet Toilet # Voids 2 - Exam PHYSICAL EXAMINATION: Patient is lying in the bed comfortably, no acute distress, awake alert bur not communicating HEENT: Normocephalic. Neck is supple. Pupils reactive. Nostrils clear. Oral cavity is moist. Neck reveals no JVD, carotid bruits, or thyromegaly. CHEST EXAMINATION: Trachea is central. Symmetrical expansion. Lung harrington clear to auscultation and percussion. CARDIAC: Normal S1, S2 with no gallops. No murmurs ABDOMEN: Soft. Bowel sounds present. Nontender. No organomegaly. No abdominal bruits. Extremities: reveal no edema. No clubbing or cyanosis Neurologically awake, alert, with well-coordinated movements. No focal deficits noted Skin: No rash or skin lesions. Psychiatric: Coperative. anxious. Musculoskeletal: No joint swelling or deformity. Normal range of motion. - Labs CBC & Chem 7: 05/16/22 08:03 05/16/22 08:03 Labs: Abnormal Lab Results - Last 24 Hours (Table) 05/17/22 Range/Units 11:41 POC Glucose (mg/dL) 131 H (70-110) mg/dL Microbiology - Last 24 Hours (Table) 05/15/22 11:44 Urine Culture - Final Urine,Voided Assessment and Plan Assessment: Acute psychosis likely due to worsening symptoms of schizophrenia with infection. Acute COVID-19 infection. Acute kidney injury likely prerenal with creatinine level 2.03 on admission Possible acute urinary tract infection Hypertension Diabetes type 2 insulin-dependent History of seizure disorder Hypothyroidism ADD/ADHD, Depression and schizophrenia Previous history of smoking DVT prophylaxis Lovenox subcu Plan: Continue with multivitamin supplementation. Patient was given monoclonal antibodies in the ER. Vitamin supplementation and DVT prophylaxis Lovenox subcu. Current with home medications and follow-up inflammatory markers. Psychiatry was consulted due to acute psychosis. Recommends to hold ritalin and continue to hold Zoloft. Continue with Prolixin and follow-up closely. recommends inpatient psychiatric admission . pt. is medically stable at this time.. Time with Patient: Greater than 30
[2022-05-18 02:06] LABS: African American GFR (CKD) 88 (>60 ml/min/1.73 sqM); Anion Gap 8 mmol/L; Blood Urea Nitrogen 9 mg/dL (7-17); Calcium 8.8 mg/dL (8.4-10.2); Carbon Dioxide 22 mmol/L (22-30); Chloride 108 mmol/L (98-107); Glucose 99 mg/dL (74-99); Non-African American GFR(CKD) 76 (>60 ml/min/1.73 sqM); Potassium 3.1 mmol/L (3.5-5.1); Sodium 138 mmol/L (137-145)
[2022-05-18 03:55] LABS: Glucose,Whole Blood 111 mg/dL (70-110)
--- NOTE | 2022-05-18 05:12 | CT ---
EXAM: CT Angiography Chest With Intravenous Contrast CLINICAL HISTORY: ITS.REASON CT Reason: elevated ddimer TECHNIQUE: Axial computed tomographic angiography images of the chest with intravenous contrast. CTDI is 13.57 mGy and DLP is 377.9 mGy-cm. This CT exam was performed using one or more of the following dose reduction techniques: automated exposure control, adjustment of the mA and/or kV according to patient size, and/or use of iterative reconstruction technique. MIP reconstructed images were created and reviewed. COMPARISON: None FINDINGS: Pulmonary arteries: No pulmonary embolus identified. Aorta: Atherosclerotic changes of the aorta. Mild ectasia of the ascending thoracic aorta measuring 4.1 cm in diameter. No aortic dissection. Lungs: Unremarkable. No mass. No consolidation. Pleural space: Unremarkable. No significant effusion. No pneumothorax. Heart: Unremarkable. No cardiomegaly. No significant pericardial effusion. No evidence of RV dysfunction. Bones/joints: No acute fracture. No dislocation. Soft tissues: Multiple calcified structures in the right breast. Punctate calcification in the left breast. Lymph nodes: Unremarkable. No enlarged lymph nodes. Liver: Hepatic steatosis. Adrenals: Nonspecific mild thickening of the adrenal glands. Kidneys and ureters: Perinephric fat stranding partially visualized. Right renal cysts partially visualized. IMPRESSION: 1. No pulmonary embolus identified. 2. Atherosclerotic changes of the aorta. Mild ectasia of the ascending thoracic aorta measuring 4.1 cm in diameter. No aortic dissection. 3. No acute pulmonary parenchymal abnormality identified.
[2022-05-18] MEDS: hydrALAZINE HCL 25 MG TAB PO SCH ×3 (05:46→21:41)
[2022-05-18] MEDS: LEVOTHYROXINE 75 MCG TAB PO SCH (05:46)
[2022-05-18 07:02] LABS: Glucose,Whole Blood 116 mg/dL (70-110)
[2022-05-18] MEDS: INSULIN ASPART (NovoLOG) 100 UNIT/ML VIAL SQ SCH ×4 (07:18→21:27)
[2022-05-18] MEDS ORDERED: Potassium Replacement Protocol 1 EACH MISC MISCELLANE PRN (07:22)
[2022-05-18] MEDS: ENOXAPARIN 40 MG/0.4 ML SYRINGE SQ SCH (07:47)
[2022-05-18] MEDS: ASCORBIC ACID 500 MG TAB PO SCH (07:48)
[2022-05-18] MEDS: CLOPIDOGREL 75 MG TAB PO SCH (07:48)
[2022-05-18] MEDS: ASPIRIN 81 MG PO SCH (07:48)
[2022-05-18] MEDS: ZINC SULFATE 220 MG CAP PO SCH (07:48)
[2022-05-18] MEDS: METOPROLOL SUCCINATE (ER) 25 MG TAB.ER.24H PO SCH (07:48)
[2022-05-18] MEDS: CHOLECALCIFEROL 125 MCG (5000 IU) TABLET PO SCH (07:48)
[2022-05-18] MEDS: LORATADINE 10 MG TAB PO SCH (07:48)
[2022-05-18] MEDS: LOSARTAN 50 MG TAB PO SCH (07:49)
[2022-05-18] MEDS: POTASSIUM CHLORIDE ER 20 MEQ TAB.ER PO SCH ×2 (07:49→10:10)
[2022-05-18] MEDS: PANTOPRAZOLE 40 MG TABLET PO SCH (07:49)
[2022-05-18] MEDS: NICOTINE 7MG/24HR PATCH TRANSDERM SCH (07:49)
[2022-05-18] MEDS: amLODIPine 5 MG TAB PO SCH (07:49)
[2022-05-18 08:46] LABS: Basophils # (A) 0.04 X 10*3/uL (0.00-0.10); Basophils % (A) 0.6 %; Eosinophils # (A) 0.08 X 10*3/uL (0.04-0.35); Eosinophils % (A) 1.3 %; HCT 33.9 % (37.2-46.3); HGB 11.6 g/dL (12.0-15.0); Immature Grans, Automated 0.3 %; Lymphocytes # (A) 2.44 X 10*3/uL (0.90-5.00); Lymphocytes % (A) 38.7 %; MCH 29.5 pg (27.0-32.0); MCHC 34.2 g/dL (32.0-37.0); MCV 86.3 fL (80.0-97.0); Mean Platelet Volume 10.2 fL (9.5-12.2); Monocytes # (A) 0.54 X 10*3/uL (0.20-1.00); Monocytes % (A) 8.6 %; NRBC Per 100 WBC 0 /100 WBCS (0.0-0.0); Neutrophils # (A) 3.18 X 10*3/uL (1.80-7.70); Neutrophils % (A) 50.5 %; Platelet Count 271 X 10*3/uL (140-440); RBC 3.93 X 10*6/uL (4.10-5.20); RDW 12.7 % (11.5-14.5)
[2022-05-18] MEDS: FLUTICASONE 50MCG/SPRAY NASAL 16GM EA NOSTRIL SCH (10:10)
[2022-05-18 11:02] LABS: Glucose,Whole Blood 143 mg/dL (70-110)
[2022-05-18 11:05] LABS: African American GFR (CKD) 90.3 (60.0-200.0); Anion Gap 12.4 mmol/L (10.00-18.00); BUN/Creat Ratio 9.5 Ratio (12.00-20.00); Blood Urea Nitrogen 7.6 mg/dL (9.0-27.0); Calcium 9.4 mg/dL (8.7-10.3); Carbon Dioxide 21.6 mmol/L (20.0-27.5); Non-African American GFR(CKD) 77.9 (60.0-200.0); Potassium 3.6 mmol/L (3.5-5.5)
[2022-05-18] MEDS: guaiFENesin 600 MG TABLET.ER PO SCH ×2 (11:45→21:41)
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
[2022-05-18 16:00] LABS: Glucose,Whole Blood 115 mg/dL (70-110)
[2022-05-18 20:46] LABS: Glucose,Whole Blood 93 mg/dL (70-110)
[2022-05-18] MEDS: MELATONIN 5 MG TABLET PO SCH (21:41)
[2022-05-18] MEDS: EZETIMIBE 10 MG TAB PO SCH (21:41)
--- NOTE | 2022-05-19 02:23 | P.PN ---
Subjective Progress Note Date: 05/18/22 Patient is a 66-year-old female with a known history of hypertension, hyperlipidemia, GERD, diabetes type 2 insulin-dependent, seizure disorder, hypothyroidism, ADD/ADHD, schizophrenia and previous history of smoking was [facility] from [facility] due to acute psychosis. Patient has been hallucinating and has been becoming very paranoid to staff. Patient was petitioned and was sent to ER. Patient otherwise poor historian. Denies any complaints of chest pain or shortness of breath. Patient has been afebrile admission. Blood pressure 100/73 and pulse 79 respiration 18 pulse ox 98% on room air. Chest x-ray showed no acute cardiopulmonary process. Laboratory showed WBC 6.8 hemoglobin 12.0 and platelets 219, sodium 137 potassium 3.1 chloride 99 BUN 32 and creatinine 2.03 Magnesium 2.3 Urinalysis showed cloudy with 1+ protein and large leukocyte esterase with WBCs 15. UDS is positive for benzodiazepines. Coronavirus PCR detected. 05/16/2022 Patient is currently lying in the bed. Awake alert. Sitter at bedside. No complaints of chest pain or shortness of breath. Patient was seen by psychiatry. Patient was started on antipsychotics, Prolixin. Patient currently remained. Otherwise patient is on room air. Laboratory data showed WBC 4.4 hemoglobin 11.2 and platelets 220 Sodium 140 potassium 3.4 chloride 107 bicarb is 22.3 BUN 20.4 and creatinine 1.1 and blood sugar is 114 CRP 2.7 and LDH 158. Patient is on antibiotics in the form of ceftriaxone for possible urinary tract infection. Follow-up urine culture. 05/17/2022 Patient is currently sitting on the bed. Awake alert but not oriented. Patient does not know why she is in the hospital. Patient is still psychotic. No com plaints of chest pain. No nausea vomiting. No fever no chills. Tolerating oral diet. IV fluids have been discontinued. Blood sugars controlled. Anticipate discharge to inpatient psychiatric unit in the next 24 to 48 hours. Renal function did improve. Urine culture showed no growth. 05/18/2022 Patient is seen today in follow up with psychiatry following. Case management following as well and working on possible med/psych [facility] as patient initially was told would not be accepted to the inpatient psych unit here due to covid. Medications being adjusted per psych. Patient also on IV ceftriaxone for UTI. Patient normally is a resident at [facility] but needs psychiatry clearance. Patient is afebrile and no reports of shortness of breath noted. Patient denies any chest pain. Recommend to continue with vitamin and zinc supplements along with lovenox. Patient is hypertensive and will adjust medications. Review of systems: Constitutional: No reports of fatigue, fever, or chills Cardiovascular: No reports of chest pain or palpitations Respiratory: No reports of shortness of breath or cough GI: No reports of nausea, vomiting, or diarrhea : No reports of dysuria or retention Neurovascular: reports of generalized weakness All medications have been reviewed Active Medications Acetaminophen (Acetaminophen Tab 500 Mg Tab) 500 mg PO Q8H PRN PRN Reason: Pain Last Admin: 05/17/22 23:37 Dose: 500 mg Amlodipine Besylate (Amlodipine 5 Mg Tab) 5 mg PO DAILY [facility] Last Admin: 05/18/22 07:49 Dose: 5 mg Ascorbic Acid (Ascorbic Acid 500 Mg Tab) 500 mg PO DAILY [facility] Last Admin: 05/18/22 07:48 Dose: 500 mg Aspirin (Aspirin 81 Mg) 81 mg PO DAILY [facility] Last Admin: 05/18/22 07:48 Dose: 81 mg Cholecalciferol (Cholecalciferol 125 Mcg (5000 Iu) Tablet) 125 mcg PO DAILY [facility] Last Admin: 05/18/22 07:48 Dose: 125 mcg Clopidogrel Bisulfate (Clopidogrel 75 Mg Tab) 75 mg PO DAILY [facility] Last Admin: 05/18/22 07:48 Dose: 75 mg Ezetimibe (Ezetimibe 10 Mg Tab) 10 mg PO HS [facility] Last Admin: 05/17/22 22:04 Dose: 10 mg Enoxaparin Sodium (Enoxaparin 40 Mg/0.4 Ml Syringe) 40 mg SQ DAILY [facility] Last Admin: 05/18/22 07:47 Dose: 40 mg Fluphenazine HCl (Fluphenazine 5 Mg Tab) 2.5 mg PO BID [facility] Last Admin: 05/18/22 07:48 Dose: 2.5 mg Fluticasone Propionate (Fluticasone 50mcg/[place] Nasal 16gm) 1 spray EA NOSTRIL DAILY [facility] Last Admin: 05/18/22 10:10 Dose: 1 spray Guaifenesin (Guaifenesin 600 Mg Tablet.Er) 600 mg PO Q12H [facility] Last Admin: 05/18/22 11:45 Dose: 600 mg Hydralazine HCl (Hydralazine Hcl 25 Mg Tab) 25 mg PO Q8H [facility] Last Admin: 05/18/22 11:45 Dose: 25 mg Ceftriaxone Sodium 1 gm/ (Sodium Chloride) 50 mls @ 100 mls/hr IVPB Q24H [facility]; Protocol Last Admin: 05/17/22 22:03 Dose: 100 mls/hr Insulin Aspart (Insulin Aspart (Novolog) 100 Unit/Ml Vial) 0 unit SQ ACHS [facility]; Protocol Last Admin: 05/18/22 11:46 Dose: Not Given Levothyroxine Sodium (Levothyroxine 75 Mcg Tab) 150 mcg PO DAILY@0630 [facility] Last Admin: 05/18/22 05:46 Dose: 150 mcg Loratadine (Loratadine 10 Mg Tab) 10 mg PO DAILY [facility] Last Admin: 05/18/22 07:48 Dose: 10 mg Losartan Potassium (Losartan 50 Mg Tab) 50 mg PO DAILY@0800 [facility] Last Admin: 05/18/22 07:49 Dose: 50 mg Melatonin (Melatonin 5 Mg Tablet) 5 mg PO HS [facility] Last Admin: 05/17/22 22:04 Dose: 5 mg Metoprolol Succinate (Metoprolol Succinate (Er) 25 Mg Tab.Er.24h) 75 mg PO DAILY [facility] Last Admin: 05/18/22 07:48 Dose: 75 mg Miscellaneous Information (Potassium Replacement Protocol 1 Each Misc) 1 each MISCELLANE DAILY PRN; Protocol PRN Reason: Per Protocol Nicotine (Nicotine 7mg/24hr Patch) 1 patch TRANSDERM DAILY [facility] Last Admin: 05/18/22 07:49 Dose: 1 patch Pantoprazole Sodium (Pantoprazole 40 Mg Tablet) 40 mg PO AC-[id number] [facility] Last Admin: 05/18/22 07:49 Dose: 40 mg Zinc Sulfate (Zinc Sulfate 220 Mg Cap) 220 mg PO DAILY [facility] Last Admin: 05/18/22 07:48 Dose: 220 mg Physical exam: Patient is sitting up in the chair, awake alert x 1-2. appears older than stated age. HEENT: Normocephalic. Neck is supple. Pupils reactive. Nostrils clear. Oral cavity is moist. Neck reveals no JVD, carotid bruits, or thyromegaly. CHEST EXAMINATION: Trachea is central. Symmetrical expansion. diminished breath sounds with no wheezing or rhonchi noted CARDIAC: S1, S2 muffled ABDOMEN: Soft. Bowel sounds present. Nontender. No organomegaly. No abdominal bruits. Extremities: reveal no edema. No clubbing or cyanosis Neurologically awake, alert, with well-coordinated movements. No focal deficits noted Skin: No rash or skin lesions. Psychiatric: Cooperative. less anxious. Musculoskeletal: No joint swelling or deformity. Normal range of motion. Assessment: Acute psychosis likely due to worsening symptoms of schizophrenia with infectio n. Acute COVID-19 infection. Acute kidney injury likely prerenal with creatinine level 2.03 on admission Possible acute urinary tract infection, present on admission Hypertension Diabetes type 2 insulin-dependent History of seizure disorder Hypothyroidism ADD/ADHD, Depression and schizophrenia Previous history of smoking DVT prophylaxis Lovenox subcu Full code Plan: Recommend to continue with multivitamin supplementation and lovenox. Patient was given monoclonal antibodies in the ER. Psychiatry following due to acute psychosis. Recommends to hold ritalin and hold Zoloft. Continue with Prolixin and follow-up closely. recommends inpatient psychiatric admission. Case management following and working on accepting facilities that can accommodate covid. Possible psych placement here on . Will need to discuss Covid protocol for acceptance to the unit per Dr. Olvera. Will follow up in am. pt. is medically stable at this time.. Blood pressure elevated and will adjust medication and increase norvasc to 10mg daily. Recommend repeat labs in the am and replace electrolytes per protocol. Due to multiple complex medical issues, prognosis is guarded. The impression and plan of care has been dictated by Nica Mistry, Nurse Practitioner as directed. Dr. Johnny MD I have performed a history and examination and MDM of this patient, discussed the same with the dictator, and agree with the dictator's assessment and plan as written ,documented as a scribe. Based on total visit time, I have performed more than 50% of the visit. Objective - Vital Signs Vital signs: Vital Signs Temp 98.0 F 05/18/22 13:57 Pulse 67 05/18/22 13:57 Resp 19 05/18/22 13:57 BP 139/87 05/18/22 13:57 Pulse Ox 99 05/18/22 13:57 FiO2 Intake & Output 05/17/22 05/18/22 05/18/22 18:59 06:59 18:59 Output Total 400 325 Balance -400 -325 Output: Urine 400 325 Other: Voiding Method Toilet # Voids 2 6 - Labs CBC & Chem 7: 05/18/22 06:27 05/18/22 06:27 Labs: Abnormal Lab Results - Last 24 Hours (Table) 05/18/22 05/18/22 05/18/22 Range/Units 00:12 01:30 03:53 RBC (4.10-5.20) X 10*6/uL Hgb (12.0-15.0) g/dL Hct (37.2-46.3) % D-Dimer 0.70 H (<0.60) mg/L FEU Potassium 3.1 L (3.5-5.1) mmol/L Chloride 108 H (98-107) mmol/L BUN (9.0-27.0) mg/dL BUN/Creatinine Ratio (12.00-20.00) Ratio POC Glucose (mg/dL) 111 H (70-110) mg/dL 05/18/22 05/18/22 05/18/22 Range/Units 06:27 06:27 07:00 RBC 3.93 L (4.10-5.20) X 10*6/uL Hgb 11.6 L (12.0-15.0) g/dL Hct 33.9 L (37.2-46.3) % D-Dimer (<0.60) mg/L FEU Potassium (3.5-5.1) mmol/L Chloride (98-107) mmol/L BUN 7.6 L (9.0-27.0) mg/dL BUN/Creatinine Ratio 9.50 L (12.00-20.00) Ratio POC Glucose (mg/dL) 116 H (70-110) mg/dL 05/18/22 Range/Units 11:00 RBC (4.10-5.20) X 10*6/uL Hgb (12.0-15.0) g/dL Hct (37.2-46.3) % D-Dimer (<0.60) mg/L FEU Potassium (3.5-5.1) mmol/L Chloride (98-107) mmol/L BUN (9.0-27.0) mg/dL BUN/Creatinine Ratio (12.00-20.00) Ratio POC Glucose (mg/dL) 143 H (70-110) mg/dL
[2022-05-19] MEDS: hydrALAZINE HCL 25 MG TAB PO SCH ×3 (05:30→21:34)
[2022-05-19] MEDS: LEVOTHYROXINE 75 MCG TAB PO SCH (05:30)
[2022-05-19 06:49] LABS: African American GFR (CKD) 76 (>60 ml/min/1.73 sqM); Anion Gap 12 mmol/L; Blood Urea Nitrogen 9 mg/dL (7-17); Calcium 9.5 mg/dL (8.4-10.2); Carbon Dioxide 22 mmol/L (22-30); Chloride 107 mmol/L (98-107); Glucose 96 mg/dL (74-99); Non-African American GFR(CKD) 66 (>60 ml/min/1.73 sqM); Potassium 3.4 mmol/L (3.5-5.1); Sodium 141 mmol/L (137-145)
[2022-05-19 07:05] LABS: Glucose,Whole Blood 111 mg/dL (70-110)
[2022-05-19] MEDS: LOSARTAN 50 MG TAB PO SCH ×2 (08:23→08:25)
[2022-05-19] MEDS: amLODIPine 5 MG TAB PO SCH ×2 (08:23→08:24)
[2022-05-19] MEDS: ASPIRIN 81 MG PO SCH ×2 (08:24→08:25)
[2022-05-19] MEDS: FLUTICASONE 50MCG/SPRAY NASAL 16GM EA NOSTRIL SCH (08:24)
[2022-05-19] MEDS: PANTOPRAZOLE 40 MG TABLET PO SCH (08:24)
[2022-05-19] MEDS: LORATADINE 10 MG TAB PO SCH (08:24)
[2022-05-19] MEDS: CHOLECALCIFEROL 125 MCG (5000 IU) TABLET PO SCH (08:24)
[2022-05-19] MEDS: METOPROLOL SUCCINATE (ER) 25 MG TAB.ER.24H PO SCH (08:24)
[2022-05-19] MEDS ORDERED: hydrALAZINE HCL 20 MG/ML 1 ML VIAL IVP PRN (08:27)
[2022-05-19] MEDS: INSULIN ASPART (NovoLOG) 100 UNIT/ML VIAL SQ SCH ×4 (08:28→22:34)
[2022-05-19] MEDS ORDERED: POTASSIUM CHLORIDE ER 20 MEQ TAB.ER PO STA (09:31)
[2022-05-19] MEDS: ASCORBIC ACID 500 MG TAB PO SCH (10:15)
[2022-05-19] MEDS: NICOTINE 7MG/24HR PATCH TRANSDERM SCH (10:15)
[2022-05-19] MEDS: ZINC SULFATE 220 MG CAP PO SCH (10:17)
[2022-05-19] MEDS: ENOXAPARIN 40 MG/0.4 ML SYRINGE SQ SCH (10:18)
[2022-05-19] MEDS: ACETAMINOPHEN TAB 500 MG TAB PO PRN ×2 (11:17→19:21)
[2022-05-19 11:21] LABS: Glucose,Whole Blood 138 mg/dL (70-110)
[2022-05-19] MEDS: guaiFENesin 600 MG TABLET.ER PO SCH ×2 (12:07→21:36)
--- NOTE | 2022-05-19 14:30 | P.PN ---
Progress Note - Text Progress Note Date: 05/19/22 Interval History: Patient was seen at bedside. The patient reports currently no suicidal or homicidal ideation, intention, and/or plan. She reports no auditory or visual hallucinations. She denies any paranoia or other delusions. She expresses a desire to be home and discharged. She does report some issues with appetite but has been able to eat meals. She has been adherent with her medications and is not reporting any side effects at this time. Collateral information was provided by the patient's niece who reports that the patient was presenting well and was more spontaneous [facility] The patient reportedly acted out when she was informed she was not going to be sent home from [facility]. As per niece the prolixin caused issues with fatigue, balance, and was far from the patient's baseline. Reportedly while the patient was being tapered off prolixin, the patient contracted covid. The patient was noted to be hallucinating shortly after. The patient's niece vehemently denies any history of psychotic episodes for this patient. Although the patient has a significant history of mood disorder and agitation there has been no previous history of overt psychotic symptoms. Mental Status Exam: General Appearance: Patient appears to be stated age is alert, directable, and cooperative. Behavior: Patient is calmly seated without any agitated behavior. Speech: Patient's speech is fluent and nonpressured. Mood/Affect: Mood is improving mildly, affect is congruent and constricted. Suicidality/Homicidality: Patient denies having any suicidal or homicidal ideation intent or plan. Perceptions: Patient denies any visual hallucinations and denies any auditory hallucinations Though content/process: There is no evidence of any delusional thought content and thought process is linear and goal-directed. Memory and concentration: AOX3, grossly intact for the purposes of this session Judgment and insight: Improving mildly Vital Signs Temp 97.6 F 05/19/22 14:00 Pulse 104 H 05/19/22 14:00 Resp 18 05/19/22 14:00 BP 159/94 05/19/22 14:00 Pulse Ox 98 05/19/22 14:00 FiO2 Intake & Output 05/18/22 05/19/22 05/19/22 18:59 06:59 18:59 Intake Total 100 Output Total 325 250 Balance -225 -250 Intake: Oral 100 Output: Urine 325 250 Other: Voiding Method Bedside Commode Bedside Commode Bedside Commode Diaper Diaper Diaper # Bowel Movements 0 Laboratory Results - Last 24 Hours 05/18/22 05/18/22 05/19/22 15:58 20:44 06:18 Sodium 141 Potassium 3.4 L Chloride 107 Carbon Dioxide 22 Anion Gap 12 BUN 9 Creatinine 0.92 Est GFR (CKD-EPI)AfAm 76 Est GFR (CKD-EPI)NonAf 66 Glucose 96 POC Glucose (mg/dL) 115 H 93 POC Glu Senior Clinical Research Scientist ID Shonda Weeks BoubacarAna hung Calcium 9.5 05/19/22 05/19/22 07:04 11:19 Sodium Potassium Chloride Carbon Dioxide Anion Gap BUN Creatinine Est GFR (CKD-EPI)AfAm Est GFR (CKD-EPI)NonAf Glucose POC Glucose (mg/dL) 111 H 138 H POC Glu Senior Clinical Research Scientist ID Dana Rueda Marissa Calcium Assessment Acute psychosis; currently appears resolved. -Acute psychosis may been exacerbated by active infection, side effect of Ritalin, prolonged hospitalization, urinary tract infection -After collateral information obtained by patient's niece, psychosis was never a symptom of concern for the patient. Questionable as to whether the patient has a history of schizophrenia. Covid-19 infection Plan: -At this time patient DOES NOT meet criteria for inpatient psychiatric admission. -Would recommend the following medication changes/additions: Discontinue prolixin to decrease polypharmacy. No medication recommendations made at this time. It is recommended patient follow-up in the outpatient setting with her primary care physician and outpatient psychiatry if necessary. -Patient is cleared psychiatrically for discharge.
[2022-05-19 17:03] LABS: Glucose,Whole Blood 111 mg/dL (70-110)
[2022-05-19 20:12] LABS: Glucose,Whole Blood 108 mg/dL (70-110)
[2022-05-19] MEDS: EZETIMIBE 10 MG TAB PO SCH (21:34)
[2022-05-19] MEDS: MELATONIN 5 MG TABLET PO SCH (21:34)
[2022-05-20] MEDS: hydrALAZINE HCL 25 MG TAB PO SCH ×3 (03:28→21:33)
[2022-05-20] MEDS: LEVOTHYROXINE 75 MCG TAB PO SCH (05:32)
[2022-05-20] MEDS: ACETAMINOPHEN TAB 500 MG TAB PO PRN ×2 (06:25→20:40)
[2022-05-20 06:56] LABS: Glucose,Whole Blood 115 mg/dL (70-110)
[2022-05-20] MEDS: INSULIN ASPART (NovoLOG) 100 UNIT/ML VIAL SQ SCH ×4 (06:57→21:39)
[2022-05-20 09:14] LABS: African American GFR (CKD) 68 (>60 ml/min/1.73 sqM); Anion Gap 13 mmol/L; Blood Urea Nitrogen 13 mg/dL (7-17); Calcium 9.8 mg/dL (8.4-10.2); Carbon Dioxide 22 mmol/L (22-30); Chloride 107 mmol/L (98-107); Glucose 127 mg/dL (74-99); Non-African American GFR(CKD) 59 (>60 ml/min/1.73 sqM); Potassium 3.8 mmol/L (3.5-5.1); Sodium 142 mmol/L (137-145)
--- NOTE | 2022-05-20 09:16 | P.PN ---
Subjective Progress Note Date: 05/19/22 Patient is a 66-year-old female with a known history of hypertension, hyperlipidemia, GERD, diabetes type 2 insulin-dependent, seizure disorder, hypothyroidism, ADD/ADHD, schizophrenia and previous history of smoking was [facility] due [facility]. Patient has been hallucinating and has been becoming very paranoid to staff. Patient was petitioned and was sent to ER. Patient otherwise poor historian. Denies any complaints of chest pain or shortness of breath. Patient has been afebrile admission. Blood pressure 100/73 and pulse 79 respiration 18 pulse ox 98% on room air. Chest x-ray showed no acute cardiopulmonary process. Laboratory showed WBC 6.8 hemoglobin 12.0 and platelets 219, sodium 137 potassium 3.1 chloride 99 BUN 32 and creatinine 2.03 Magnesium 2.3 Urinalysis showed cloudy with 1+ protein and large leukocyte esterase with WBCs 15. UDS is positive for benzodiazepines. Coronavirus PCR detected. 05/16/2022 Patient is currently lying in the bed. Awake alert. Sitter at bedside. No complaints of chest pain or shortness of breath. Patient was seen by psychiatry. Patient was started on antipsychotics, Prolixin. Patient currently remained. Otherwise patient is on room air. Laboratory data showed WBC 4.4 hemoglobin 11.2 and platelets 220 Sodium 140 potassium 3.4 chloride 107 bicarb is 22.3 BUN 20.4 and creatinine 1.1 and blood sugar is 114 CRP 2.7 and LDH 158. Patient is on antibiotics in the form of ceftriaxone for possible urinary tract infection. Follow-up urine culture. 05/17/2022 Patient is currently sitting on the bed. Awake alert but not oriented. Patient does not know why she is in the hospital. Patient is still psychotic. No com plaints of chest pain. No nausea vomiting. No fever no chills. Tolerating oral diet. IV fluids have been discontinued. Blood sugars controlled. Anticipate discharge to inpatient psychiatric unit in the next 24 to 48 hours. Renal function did improve. Urine culture showed no growth. 05/18/2022 Patient is seen today in follow up with psychiatry following. Case management following as well and working on possible med/psych ecf as patient initially was told would not be accepted to the inpatient psych unit here due to covid. Medications being adjusted per psych. Patient also on IV ceftriaxone for UTI. Patient normally is a resident at [facility] but needs psychiatry clearance. Patient is afebrile and no reports of shortness of breath noted. Patient denies any chest pain. Recommend to continue with vitamin and zinc supplements along with lovenox. Patient is hypertensive and will adjust medications. 05/19/2022 Patient is seen in follow-up this morning calm and cooperative with staff. Patient has been working with physical therapy although continues to be weak. Patient is reporting weakness in bilateral lower extremities. Patient is compliant with medications and has been maintained on IV ceftriaxone and will continue. Patient was Covid positive and case management following working on accepting facilities that can accommodate for continued PT/OT therapy. Potassium mildly low and will replace per protocol repeat labs. Patient is afebrile and denies any chest pain or shortness of breath. Patient is 98% on room air. Review of systems: Constitutional: No reports of fatigue, fever, or chills Cardiovascular: No reports of chest pain or palpitations Respiratory: No reports of shortness of breath or cough GI: No reports of nausea, vomiting, or diarrhea : No reports of dysuria or retention Neurovascular: reports of generalized weakness All medications have been reviewed Physical exam: Patient is sitting up in the chair, awake alert x 1-2. appears older than stated age. HEENT: Normocephalic. Neck is supple. Pupils reactive. Nostrils clear. Oral cavity is moist. Neck reveals no JVD, carotid bruits, or thyromegaly. CHEST EXAMINATION: Trachea is central. Symmetrical expansion. diminished breath sounds with no wheezing or rhonchi noted CARDIAC: S1, S2 muffled ABDOMEN: Soft. Bowel sounds present. Nontender. No organomegaly. No abdominal bruits. Extremities: reveal no edema. No clubbing or cyanosis Neurologically awake, alert, with well-coordinated movements. No focal deficits noted Skin: No rash or skin lesions. Psychiatric: Cooperative. less anxious. Musculoskeletal: No joint swelling or deformity. Normal range of motion. Assessment: Acute psychosis likely due to worsening symptoms of schizophrenia with infection. Acute COVID-19 infection. Acute kidney injury likely prerenal with creatinine level 2.03 on admission Possible acute urinary tract infection, present on admission Hypertension Diabetes type 2 insulin-dependent History of seizure disorder Hypothyroidism ADD/ADHD, Depression and schizophrenia Previous history of smoking DVT prophylaxis Lovenox subcu Full code Plan: Recommend to continue with multivitamin supplementation and lovenox. Patient was given monoclonal antibodies in the ER. Psychiatry following due to acute psychosis. Recommends to hold ritalin and hold Zoloft. Continue with Prolixin and follow-up closely. recommends inpatient psychiatric admission. Case management following and working on accepting facilities that can accommodate covid. Possible psych placement here on if patient is 10 days out of positive Covid results. pt. is medically stable at this time.. Blood pressure elevated and have adjusted medication Recommend repeat labs in the am and replace electrolytes per protocol. Due to multiple complex medical issues, prognosis is guarded. The impression and plan of care has been dictated by Nica Mistry, Nurse Practitioner as directed. Dr. Johnny MD I have performed a history and examination and MDM of this patient, discussed the same with the dictator, and agree with the dictator's assessment and plan as written ,documented as a scribe. Based on total visit time, I have performed more than 50% of the visit. Objective - Vital Signs Vital signs: Vital Signs Temp 98.6 F 05/20/22 02:00 Pulse 86 05/20/22 02:00 Resp 17 05/20/22 02:00 BP 150/99 05/20/22 02:00 Pulse Ox 99 05/20/22 02:00 FiO2 Intake & Output 05/19/22 05/20/22 05/20/22 18:59 06:59 18:59 Output Total 475 Balance -475 Output: Urine 475 Straight 475 Other: Voiding Method Bedside Commode Bedside Commode Diaper Diaper External Catheter # Voids 1 # Bowel Movements 1 - Labs CBC & Chem 7: 05/18/22 06:27 05/19/22 06:18 Labs: Abnormal Lab Results - Last 24 Hours (Table) 05/19/22 05/19/22 05/20/22 Range/Units 11:19 17:01 06:54 POC Glucose (mg/dL) 138 H 111 H 115 H (70-110) mg/dL
[2022-05-20] MEDS: CHOLECALCIFEROL 125 MCG (5000 IU) TABLET PO SCH (09:54)
[2022-05-20] MEDS: LORATADINE 10 MG TAB PO SCH (09:54)
[2022-05-20] MEDS: METOPROLOL SUCCINATE (ER) 25 MG TAB.ER.24H PO SCH (09:54)
[2022-05-20] MEDS: ZINC SULFATE 220 MG CAP PO SCH (09:54)
[2022-05-20] MEDS: ASCORBIC ACID 500 MG TAB PO SCH (09:54)
[2022-05-20] MEDS: ENOXAPARIN 40 MG/0.4 ML SYRINGE SQ SCH (09:54)
[2022-05-20] MEDS: CLOPIDOGREL 75 MG TAB PO SCH (09:54)
[2022-05-20] MEDS: amLODIPine 5 MG TAB PO SCH (09:54)
[2022-05-20] MEDS: NICOTINE 7MG/24HR PATCH TRANSDERM SCH (09:55)
[2022-05-20] MEDS: FLUTICASONE 50MCG/SPRAY NASAL 16GM EA NOSTRIL SCH (09:55)
[2022-05-20 11:56] LABS: Glucose,Whole Blood 110 mg/dL (70-110)
[2022-05-20] MEDS: guaiFENesin 600 MG TABLET.ER PO SCH ×2 (11:58→21:33)
[2022-05-20] MEDS: TAMSULOSIN 0.4 MG CAP.ER.24H PO SCH (14:13)
[2022-05-20 16:17] LABS: Glucose,Whole Blood 102 mg/dL (70-110)
[2022-05-20 20:46] LABS: Glucose,Whole Blood 107 mg/dL (70-110)
[2022-05-20] MEDS: EZETIMIBE 10 MG TAB PO SCH (21:33)
[2022-05-20] MEDS: MELATONIN 5 MG TABLET PO SCH (21:33)
[2022-05-21] MEDS: hydrALAZINE HCL 25 MG TAB PO SCH ×2 (04:11→11:56)
[2022-05-21] MEDS: ACETAMINOPHEN TAB 500 MG TAB PO PRN (04:11)
[2022-05-21] MEDS: LEVOTHYROXINE 75 MCG TAB PO SCH (05:31)
--- NOTE | 2022-05-21 05:49 | P.PN ---
Subjective Progress Note Date: 05/20/22 Patient is a 66-year-old female with a known history of hypertension, hyperlipidemia, GERD, diabetes type 2 insulin-dependent, seizure disorder, hypothyroidism, ADD/ADHD, schizophrenia and previous history of smoking was [facility] due to acute psychosis. Patient has been hallucinating and has been becoming very paranoid to staff. Patient was petitioned and was sent to ER. Patient otherwise poor historian. Denies any complaints of chest pain or shortness of breath. Patient has been afebrile admission. Blood pressure 100/73 and pulse 79 respiration 18 pulse ox 98% on room air. Chest x-ray showed no acute cardiopulmonary process. Laboratory showed WBC 6.8 hemoglobin 12.0 and platelets 219, sodium 137 potassium 3.1 chloride 99 BUN 32 and creatinine 2.03 Magnesium 2.3 Urinalysis showed cloudy with 1+ protein and large leukocyte esterase with WBCs 15. UDS is positive for benzodiazepines. Coronavirus PCR detected. 05/16/2022 Patient is currently lying in the bed. Awake alert. Sitter at bedside. No complaints of chest pain or shortness of breath. Patient was seen by psychiatry. Patient was started on antipsychotics, Prolixin. Patient currently remained. Otherwise patient is on room air. Laboratory data showed WBC 4.4 hemoglobin 11.2 and platelets 220 Sodium 140 potassium 3.4 chloride 107 bicarb is 22.3 BUN 20.4 and creatinine 1.1 and blood sugar is 114 CRP 2.7 and LDH 158. Patient is on antibiotics in the form of ceftriaxone for possible urinary tract infection. Follow-up urine culture. 05/17/2022 Patient is currently sitting on the bed. Awake alert but not oriented. Patient does not know why she is in the hospital. Patient is still psychotic. No com plaints of chest pain. No nausea vomiting. No fever no chills. Tolerating oral diet. IV fluids have been discontinued. Blood sugars controlled. Anticipate discharge to inpatient psychiatric unit in the next 24 to 48 hours. Renal function did improve. Urine culture showed no growth. 05/18/2022 Patient is seen today in follow up with psychiatry following. Case management following as well and working on possible med/psych ecf as patient initially was told would not be accepted to the inpatient psych unit here due to covid. Medications being adjusted per psych. Patient also on IV ceftriaxone for UTI. Patient normally is a resident at [facility] but needs psychiatry clearance. Patient is afebrile and no reports of shortness of breath noted. Patient denies any chest pain. Recommend to continue with vitamin and zinc supplements along with lovenox. Patient is hypertensive and will adjust medications. 05/19/2022 Patient is seen in follow-up this morning calm and cooperative with staff. Patient has been working with physical therapy although continues to be weak. Patient is reporting weakness in bilateral lower extremities. Patient is compliant with medications and has been maintained on IV ceftriaxone and will continue. Patient was Covid positive and case management following working on accepting facilities that can accommodate for continued PT/OT therapy. Potassium mildly low and will replace per protocol repeat labs. Patient is afebrile and denies any chest pain or shortness of breath. Patient is 98% on room air. 05/20/2022 Patient is evaluated today and is currently sitting up in bed on room air and denies any chest pain or shortness of breath. Per nursing staff patient having some difficulty with urinating and will add flomax. Patient denies any burning or pain with urination. Patient being followed by psychiatry and stable for ECF once medically cleared and will not require psych placement recommending to continue with current medications. Repeat potassium improved and encouraged oral intake. PT/OT following. Review of systems: Constitutional: No reports of fatigue, fever, or chills Cardiovascular: No reports of chest pain or palpitations Respiratory: No reports of shortness of breath or cough GI: No reports of nausea, vomiting, or diarrhea : No reports of dysuria or retention Neurovascular: reports of generalized weakness All medications have been reviewed Physical exam: Patient is sitting up in the bed, awake alert x 1-2. appears older than stated age. HEENT: Normocephalic. Neck is supple. Pupils reactive. Nostrils clear. Oral cavity is moist. Neck reveals no JVD, carotid bruits, or thyromegaly. CHEST EXAMINATION: Trachea is central. Symmetrical expansion. diminished breath sounds with no wheezing or rhonchi noted CARDIAC: S1, S2 muffled ABDOMEN: Soft. Bowel sounds present. Nontender. No organomegaly. No abdominal bruits. Extremities: reveal no edema. No clubbing or cyanosis Neurologically awake, alert, with well-coordinated movements. No focal deficits noted Skin: No rash or skin lesions. Psychiatric: Cooperative. less anxious. Musculoskeletal: No joint swelling or deformity. Normal range of motion. Assessment: Acute psychosis likely due to worsening symptoms of schizophrenia with infect ion. Acute COVID-19 infection. Acute kidney injury likely prerenal with creatinine level 2.03 on admission Possible acute urinary tract infection, present on admission Hypertension Diabetes type 2 insulin-dependent History of seizure disorder Hypothyroidism ADD/ADHD Depression and schizophrenia Previous history of smoking DVT prophylaxis Lovenox subcu Full code Plan: Recommend to continue with multivitamin supplementation and lovenox. Patient was given monoclonal antibodies in the ER. Currently room air and denies shortness of breath. Psychiatry following due to acute psychosis. Recommends to continue current medication regimen and will not require inpatient psych placement. Due to multiple complex medical issues, prognosis is guarded. Plan is to return to [facility] with possible discharge in 24 hours. The impression and plan of care has been dictated by Nica Mistry, Nurse Practitioner as directed. Dr. Johnny MD I have performed a history and examination and MDM of this patient, discussed the same with the dictator, and agree with the dictator's assessment and plan as written ,documented as a scribe. Based on total visit time, I have performed more than 50% of the visit. Objective - Vital Signs Vital signs: Vital Signs Temp 97.8 F 05/20/22 08:00 Pulse 99 05/20/22 08:00 Resp 18 05/20/22 08:00 BP 146/92 05/20/22 08:00 Pulse Ox 98 05/20/22 08:00 FiO2 Intake & Output 05/19/22 05/20/22 05/20/22 18:59 06:59 18:59 Output Total 475 Balance -475 Output: Urine 475 Straight 475 Other: Voiding Method Bedside Commode Bedside Commode Diaper Diaper External Catheter # Voids 1 # Bowel Movements 1 - Labs CBC & Chem 7: 05/18/22 06:27 05/20/22 08:11 Labs: Abnormal Lab Results - Last 24 Hours (Table) 05/19/22 05/19/22 05/20/22 Range/Units 11:19 17:01 06:54 Glucose (74-99) mg/dL POC Glucose (mg/dL) 138 H 111 H 115 H (70-110) mg/dL 05/20/22 Range/Units 08:11 Glucose 127 H (74-99) mg/dL POC Glucose (mg/dL) (70-110) mg/dL
[2022-05-21 06:47] LABS: Glucose,Whole Blood 127 mg/dL (70-110)
[2022-05-21] MEDS: INSULIN ASPART (NovoLOG) 100 UNIT/ML VIAL SQ SCH ×2 (06:57→11:55)
[2022-05-21] MEDS: ASPIRIN 81 MG PO SCH (08:26)
[2022-05-21] MEDS: amLODIPine 5 MG TAB PO SCH (08:26)
[2022-05-21] MEDS: ZINC SULFATE 220 MG CAP PO SCH (08:27)
[2022-05-21] MEDS: METOPROLOL SUCCINATE (ER) 25 MG TAB.ER.24H PO SCH (08:27)
[2022-05-21] MEDS: CHOLECALCIFEROL 125 MCG (5000 IU) TABLET PO SCH (08:27)
[2022-05-21] MEDS: LORATADINE 10 MG TAB PO SCH (08:27)
[2022-05-21] MEDS: PANTOPRAZOLE 40 MG TABLET PO SCH (08:27)
[2022-05-21] MEDS: ASCORBIC ACID 500 MG TAB PO SCH (08:27)
[2022-05-21] MEDS: CLOPIDOGREL 75 MG TAB PO SCH (08:27)
[2022-05-21] MEDS: TAMSULOSIN 0.4 MG CAP.ER.24H PO SCH (08:27)
[2022-05-21] MEDS: LOSARTAN 50 MG TAB PO SCH (08:27)
[2022-05-21] MEDS: FLUTICASONE 50MCG/SPRAY NASAL 16GM EA NOSTRIL SCH (08:28)
[2022-05-21] MEDS: ENOXAPARIN 40 MG/0.4 ML SYRINGE SQ SCH (08:28)
[2022-05-21] MEDS: NICOTINE 7MG/24HR PATCH TRANSDERM SCH (08:28)
[2022-05-21 10:20] VITALS: RESP 18
[2022-05-21] MEDS: guaiFENesin 600 MG TABLET.ER PO SCH (11:05)
[2022-05-21 11:31] LABS: Glucose,Whole Blood 145 mg/dL (70-110)
[2022-05-21 12:10] VITALS: BMI 34.4
--- NOTE | 2022-05-21 13:51 | P.DS ---
Providers Date of admission: 05/14/22 19:54 Expected date of discharge: 05/21/22 Attending physician: Mahi Turner Consults: 05/14/22 19:50 Consult Physician Urgent Consulting Provider: Javy Olvera Consult Reason/Comments: Acute psychosis Do you want consulting provider notified?: Yes Primary care physician: Physician Nonstaff Hospital Course: Final diagnosis Acute psychosis likely due to worsening symptoms of schizophrenia with infection. Acute COVID-19 infection. Acute kidney injury likely prerenal with creatinine level 2.03 on admission Possible acute urinary tract infection, present on admission Hypertension Diabetes type 2 insulin-dependent History of seizure disorder Hypothyroidism ADD/ADHD Depression and schizophrenia Previous history of smoking DVT prophylaxis Full code Discharge disposition Patient is being discharged in a stable condition with guarded prognosis to [facility]. Patient will follow-up with primary care provider in the outpatient setting upon discharge. Patient is to also have follow-up with psychiatry in the outpatient setting. Patient will continue on vitamin and zinc supplements and continue zinc for the next 14 days and then may discontinue. Total time taken is greater than 35 minutes. Hospital course This is a 66-year-old female who [facility] psychosis. Patient was reportedly having hallucinations and very paranoid with staff and was petition. Patient was evaluated by psychiatry and recommend holding Ativan medications and Zoloft. Patient was also found to be Covid positive with no respiratory symptoms noted. Patient continues with mild confusion and reports she does not remember how to urinate and was started on Flomax. Recommend post void residuals and monitoring of intake and output with bladder scans 4 times daily and if retaining over 300-400 mL's, recommend straight catheterization and is continuing to require frequent catheterizations recommend indwelling Dubon catheter and urology consult in the outpatient setting. Patient was treated for urinary tract infection with IV ceftriaxone during hospitalization. Patient denies any burning or pain with urination. Currently no reports of chest pain, shortness of breath, or palpitations. Patient is afebrile. No reports of nausea or vomiting and patient is tolerating diet. Patient will be going to [facility] today. Guarded prognosis. On exam vital signs are stable. Cardio S1, S2 are muffled. Respiratory system shows diminished breath sounds at the bases with no wheezing or rhonchi noted. Abdomen is soft and nontender. Nervous system shows diffuse weakness. Please refer to medication reconciliation sheet for a list of medications. The impression and plan of care has been dictated by Nica Mistry, Nurse Practitioner as directed. Dr. Johnny MD I have performed a history and examination and MDM of this patient, discussed the same with the dictator, and agree with the dictator's assessment and plan as written ,documented as a scribe. Based on total visit time, I have performed more than 50% of the visit. Patient Condition at Discharge: Stable Plan - Discharge Summary Discharge Rx Participant: No New Discharge Prescriptions: New Tamsulosin [Flomax] 0.4 mg PO PC-BRKFST cap Zinc Sulfate [Orazinc] 220 mg PO DAILY 14 Days #14 cap Ascorbic Acid [Vitamin C] 500 mg PO DAILY tab Cholecalciferol [Vitamin D3 (125 Mcg = 5000 Iu)] 125 mcg PO DAILY tab Continue Acetaminophen Tab [Tylenol] 500 mg PO Q8H PRN PRN Reason: Pain hydrALAZINE HCL 25 mg PO Q8H Lidocaine/Menthol [Icy Hot 4%-1% Patch] 1 patch TRANSDERM Q12H guaiFENesin [Mucinex] 600 mg PO Q12H Levothyroxine Sodium [Synthroid] 150 mcg PO DAILY@0600 Omeprazole 20 mg PO DAILY@0800 Nicotine 7Mg/24Hr Patch [Habitrol] 1 patch TRANSDERM DAILY@0800 Melatonin 5 mg PO HS@2000 INSULIN LISPRO (HumaLOG) [humaLOG] See Protocol SQ ACHS Metoprolol Succinate (ER) [Toprol XL] 75 mg PO DAILY@0800 Loratadine 10 mg PO DAILY@0800 Fluticasone Nasal [place] [Flonase Nasal [place]] 1 spray EA NOSTRIL DAILY@0800 Ezetimibe [Zetia] 10 mg PO HS@2000 Losartan [Cozaar] 50 mg PO DAILY@0800 Clopidogrel [Plavix] 75 mg PO DAILY@0800 Aspirin EC [Ecotrin Low Dose] 81 mg PO DAILY@0800 amLODIPine [Norvasc] 10 mg PO DAILY@0800 Discontinued Methylphenidate HCl [Ritalin] 5 mg PO BID Insulin Detemir (Levemir) [Levemir] 11 unit SQ Q12H LORazepam 0.5 mg PO Q8H PRN PRN Reason: Anxiety Sertraline [Zoloft] 50 mg PO BID@0800,1600 fluPHENAZine [Prolixin 5MG] 5 mg PO DAILY@0800 Discharge Medication List Acetaminophen Tab [Tylenol] 500 mg PO Q8H PRN 05/14/22 [History] Aspirin EC [Ecotrin Low Dose] 81 mg PO DAILY@0805/14/22 [History] Clopidogrel [Plavix] 75 mg PO DAILY@0805/14/22 [History] Ezetimibe [Zetia] 10 mg PO HS@199905/14/22 [History] Fluticasone Nasal [place] [Flonase Nasal [place]] 1 spray EA NOSTRIL DAILY@79905/14/22 [History] INSULIN LISPRO (HumaLOG) [humaLOG] See Protocol SQ ACHS 05/14/22 [History] Levothyroxine Sodium [Synthroid] 150 mcg PO DAILY@59905/14/22 [History] Lidocaine/Menthol [Icy Hot 4%-1% Patch] 1 patch TRANSDERM Q12H 05/14/22 [History] Loratadine 10 mg PO DAILY@79905/14/22 [History] Losartan [Cozaar] 50 mg PO DAILY@79905/14/22 [History] Melatonin 5 mg PO HS@199905/14/22 [History] Metoprolol Succinate (ER) [Toprol XL] 75 mg PO DAILY@79905/14/22 [History] Nicotine 7Mg/24Hr Patch [Habitrol] 1 patch TRANSDERM DAILY@79905/14/22 [History] Omeprazole 20 mg PO DAILY@79905/14/22 [History] amLODIPine [Norvasc] 10 mg PO DAILY@0805/14/22 [History] guaiFENesin [Mucinex] 600 mg PO Q12H 05/14/22 [History] hydrALAZINE HCL 25 mg PO Q8H 05/14/22 [History] Ascorbic Acid [Vitamin C] 500 mg PO DAILY tab 05/21/22 [Rx] Cholecalciferol [Vitamin D3 (125 Mcg = 5000 Iu)] 125 mcg PO DAILY tab 05/21/22 [Rx] Tamsulosin [Flomax] 0.4 mg PO PC-BRKFST cap 05/21/22 [Rx] Zinc Sulfate [Orazinc] 220 mg PO DAILY 14 Days #14 cap 05/21/22 [Rx] Follow up Appointment(s)/Referral(s): Nonstaff,Physician [Primary Care Provider] - 1-2 days Ambulatory/Diagnostic Orders: Complete Blood Count w/diff [LAB.AMB] Time Frame: 3 Days, Location: None Selected Activity/Diet/Wound Care/Special Instructions: Patient is returning to [facility] Activity as tolerated Recommend continue with diabetic diet Recommend continuing with Flomax 0.4 mg daily and frequent bladder scans 4 times a day and if retaining over 300 on the bladder scan, recommend straight catheterization and is continuing to retain recommend an indwelling Dubon catheter Recommend continue monitoring Accu-Cheks before meals and at bedtime and continue sliding scale as needed Recommend repeat labs in 2-3 days of CBC, BMP, magnesium Continue with vitamin and zinc supplements and continue seeing for 2 weeks and then may discontinue . NovoLog sliding scale 0-150 equals 0 units 151-200 equals 2 units 201-250 equals 4 units 251-300 equals 6 units 301-350 equals 8 units 351-400 equals 10 units Please notify provider if blood sugar is 400 or above Patient follow-up with primary care provider on discharge Patient follow-up with psychiatry in the outpatient setting Discharge Disposition: TRANSFER TO SNF/F
[2022-05-21 14:17] VITALS: BP 112/78; PULSE 96; TEMP 98
== END 2022-05-21 15:31 | DRG 178 ==
LOC: EC 15:32 → 4SSUR 19:54
PROVIDERS: ADMIT Hospitalist; ATTEND Hospitalist
PROC: XW033F6 Introduction of Bamlanivimab Monoclonal Antibody into Peripheral Vein, Percutaneous Approach, New Technology Group 6 (ICD-10-PCS; principal; 2022-05-14)
DX: U07.1 COVID-19 (principal); N39.0 Urinary tract infection, site not specified; R45.851 Suicidal ideations; N17.9 Acute kidney failure, unspecified; F20.9 Schizophrenia, unspecified; E03.9 Hypothyroidism, unspecified; E11.9 Type 2 diabetes mellitus without complications; E78.5 Hyperlipidemia, unspecified; E87.6 Hypokalemia; F90.9 Attention-deficit hyperactivity disorder, unspecified type; G40.909 Epilepsy, unspecified, not intractable, without status epilepticus; F32.A Depression, unspecified; I10 Essential (primary) hypertension; Z86.73 Personal history of transient ischemic attack (TIA), and cerebral infarction without residual deficits; Z79.02 Long term (current) use of antithrombotics/antiplatelets; Z79.4 Long term (current) use of insulin; Z79.82 Long term (current) use of aspirin; Z79.890 Hormone replacement therapy; Z79.899 Other long term (current) drug therapy; Z87.891 Personal history of nicotine dependence; Z88.2 Allergy status to sulfonamides; Z88.8 Allergy status to other drugs, medicaments and biological substances
CPT/HCPCS: 36415; 71046; 71275; 80048; 80306; 81001; 82075; 83615; 83735; 84484; 85025; 85379; 86140; 87086; 87635; 93005; 99285

== ENCOUNTER 2022-05-22 14:49 | Inpatient (IN) | payer OTHER ==
--- NOTE | 2022-05-22 16:00 | ED ---
General Adult HPI - General Stated complaint: Mental Health Time Seen by Provider: 05/22/22 15:09 Source: patient, RN notes reviewed Limitations: no limitations - History of Present Illness Initial comments: Patient is a pleasant [age]-year-old female presenting to the emergency department for mental health evaluation. Patient will not answer whether or not she has been taking her medications however petition has concerns that she is not. Patient admits to making statements that she wants to however states she does not want to live, but does not want to kill herself. Patient has no plan. No homicidal thoughts. No alcohol or street drugs. No new physical complaints. - Related Data Home Medications Medication Instructions Recorded Confirmed Acetaminophen Tab [Tylenol] 500 mg PO Q8H PRN 05/14/22 05/22/22 Aspirin EC [Ecotrin Low Dose] 81 mg PO DAILY@79905/14/22 05/22/22 Clopidogrel [Plavix] 75 mg PO DAILY@79905/14/22 05/22/22 Ezetimibe [Zetia] 10 mg PO HS@199905/14/22 05/22/22 Fluticasone Nasal [place] [Flonase 1 spray EA NOSTRIL DAILY@79905/14/22 05/22/22 Nasal [place]] INSULIN LISPRO (HumaLOG) [humaLOG] See Protocol SQ ACHS 05/14/22 05/22/22 Levothyroxine Sodium [Synthroid] 150 mcg PO DAILY@59905/14/22 05/22/22 Lidocaine/Menthol [Icy Hot 4%-1% 1 patch TRANSDERM BID@799,199905/14/22 05/22/22 Patch] Loratadine 10 mg PO DAILY@79905/14/22 05/22/22 Losartan [Cozaar] 50 mg PO DAILY@79905/14/22 05/22/22 Melatonin 5 mg PO HS@199905/14/22 05/22/22 Metoprolol Succinate (ER) [Toprol 75 mg PO DAILY@79905/14/22 05/22/22 XL] Nicotine 7Mg/24Hr Patch [Habitrol] 1 patch TRANSDERM DAILY@79905/14/22 05/22/22 Omeprazole 20 mg PO DAILY@79905/14/22 05/22/22 guaiFENesin [Mucinex] 600 mg PO BID@0800,2000 05/14/22 05/22/22 hydrALAZINE HCL 25 mg PO TID@0000,0800,1600 05/14/22 05/22/22 Ascorbic Acid [Vitamin C] 500 mg PO DAILY@79905/22/22 05/22/22 Cholecalciferol [Vitamin D3 (125 125 mcg PO DAILY@79905/22/22 05/22/22 Mcg = 5000 Iu)] Tamsulosin [Flomax] 0.4 mg PO DAILY@79905/22/22 05/22/22 Zinc Sulfate [Orazinc] 220 mg PO DAILY@79905/22/22 05/22/22 amLODIPine [Norvasc] 10 mg PO DAILY@79905/22/22 05/22/22 Allergies Allergy/AdvReac Type Severity Reaction Status Date / Time pregabalin [From Lyrica] Allergy Unknown Verified 05/22/22 18:00 [id number] Reductase Allergy Unknown Verified 05/22/22 18:00 Inhibitor Sulfa (Sulfonamide Allergy Unknown Verified 05/22/22 18:00 Antibiotics) sulfacetamide Allergy Unknown Verified 05/22/22 18:00 [From Sulfacet-R] sulfur [From Sulfacet-R] Allergy Unknown Verified 05/22/22 18:00 Review of Systems ROS Statement: Those systems with pertinent positive or pertinent negative responses have been documented in the HPI. ROS Other: All systems not noted in ROS Statement are negative. Constitutional: Denies: fever Eyes: Denies: eye pain ENT: Denies: ear pain Respiratory: Denies: cough Cardiovascular: Denies: chest pain Endocrine: Denies: fatigue Gastrointestinal: Denies: abdominal pain Genitourinary: Denies: urgency Musculoskeletal: Denies: back pain Skin: Denies: rash Neurological: Denies: weakness Past Medical History Past Medical History: Diabetes Mellitus, GERD/Reflux, Hyperlipidemia, Hypertension, Seizure Disorder, Thyroid Disorder Additional Past Medical History / Comment(s): Hypothyroidism, falls, unspecifies psychosis, constipation, muscle spasm History of Any Multi-Drug Resistant Organisms: None Reported Past Surgical History: Unable to Obtain Past Psychological History: ADD/ADHD, Depression, Schizophrenia Additional Psychological History / Comment(s): acute psychosis Smoking Status: Former smoker Past Alcohol Use History: None Reported Past Drug Use History: None Reported General Exam Limitations: no limitations General appearance: alert, in no apparent distress Head exam: Present: normocephalic Eye exam: Present: normal appearance Neck exam: Present: normal inspection Respiratory exam: Present: normal lung sounds bilaterally Cardiovascular Exam: Present: regular rate, normal rhythm GI/Abdominal exam: Present: soft. Absent: tenderness Extremities exam: Present: normal inspection Neurological exam: Present: alert. Absent: motor sensory deficit Psychiatric exam: Present: flat affect Skin exam: Present: normal color Course Vital Signs 05/22/22 15:00 Temperature 98.6 F Pulse Rate 98 Respiratory 18 Rate Blood Pressure 153/97 O2 Sat by Pulse 98 Oximetry Medical Decision Making - Medical Decision Making Patient seen by mental health services who states patient will need medical admission secondary to recent COVID-19 positive test. They are unable to take patient for 2 more days. [facility] has been paged for admission. Case was discussed with practitioner Perry, who will admit covering with Dr. Turner who recently had this patient admitted to their service. Disposition Clinical Impression: Acute psychosis, COVID-19 Disposition: ADMITTED IP TO THIS HOSP Is patient prescribed a controlled substance at d/c from ED?: No Referrals: None,Stated [Primary Care Provider] - 1-2 days Time of Disposition: 21:34
[2022-05-22] MEDS ORDERED: NALOXONE 0.4 MG/ML 1 ML VIAL IV PRN (21:35)
[2022-05-22 23:02] LABS: Basophils # (A) 0.1 k/uL (0-0.2); Basophils % (A) 1 %; Eosinophils # (A) 0.2 k/uL (0-0.7); Eosinophils % (A) 2 %; HCT 40.9 % (34.0-46.0); HGB 13.9 gm/dL (11.4-16.0); Lymphocytes # (A) 3.5 k/uL (1.0-4.8); Lymphocytes % (A) 33 %; MCHC 34.1 g/dL (31.0-37.0); Mean Platelet Volume 7.8; Monocytes # (A) 0.5 k/uL (0-1.0); Monocytes % (A) 5 %; Neutrophils # (A) 6.1 k/uL (1.3-7.7); Neutrophils % (A) 57 %; Platelet Count 386 k/uL (150-450); RDW 13.5 % (11.5-15.5); WBC 10.7 k/uL (3.8-10.6)
[2022-05-22 23:09] LABS: Calcium 10.6 mg/dL (8.4-10.2); Potassium 3.8 mmol/L (3.5-5.1)
[2022-05-23] MEDS: hydrALAZINE HCL 25 MG TAB PO SCH ×5 (01:29→23:42)
[2022-05-23] MEDS: LEVOTHYROXINE 75 MCG TAB PO SCH (07:20)
[2022-05-23 07:34] LABS: Glucose,Whole Blood 108 mg/dL (70-110)
[2022-05-23] MEDS: INSULIN ASPART (NovoLOG) 100 UNIT/ML VIAL SQ SCH ×4 (08:01→21:49)
[2022-05-23] MEDS: LOSARTAN 50 MG TAB PO SCH ×2 (10:07→10:48)
[2022-05-23] MEDS: amLODIPine 10 MG TAB PO SCH ×2 (10:07→10:48)
[2022-05-23] MEDS: METOPROLOL SUCCINATE (ER) 25 MG TAB.ER.24H PO SCH ×2 (10:07→10:48)
[2022-05-23] MEDS: ASPIRIN 81 MG PO SCH ×2 (10:07→10:48)
[2022-05-23] MEDS: CLOPIDOGREL 75 MG TAB PO SCH ×2 (10:07→10:48)
[2022-05-23] MEDS: CHOLECALCIFEROL 125 MCG (5000 IU) TABLET PO SCH (10:13)
[2022-05-23] MEDS: ASCORBIC ACID 500 MG TAB PO SCH (10:13)
[2022-05-23] MEDS: LORATADINE 10 MG TAB PO SCH (10:16)
[2022-05-23] MEDS: PANTOPRAZOLE 40 MG TABLET PO SCH (10:16)
[2022-05-23] MEDS: ZINC SULFATE 220 MG CAP PO SCH (10:16)
--- NOTE | 2022-05-23 10:33 | P.HPIM ---
History of Present Illness This is a pleasant 66 years old female with past medical history of schizophrenia, psychoses Diabetes Mellitus, GERD/Reflux, Hyperlipidemia, Hypertension, Seizure Disorder, hypothyroidism She presents to the hospital with signs and symptoms but she found to have competent infection so she was admitted to the general medical floor was psychiatric consult pt [facility] from [facility] with petition that states that wants to kill herself. I saw the patient on the medical floor in room 465, start at bedside, patient was angry and shouting and refusing to take her medication stating that she does not want to live. She denies any chest pain or dyspnea. No specific GI or urinary complaints. She has some nasal secretions. She is oriented to time place and person . She is a little bit confused. She has insight into her situation. No diarrhea, no urinary complaints. No fever. Patient refusing oral medication, risks and benefits are explained for her including her high blood pressure, she verbalized understanding and she agrees to give her treatment patch. Past Medical History Past Medical History: Diabetes Mellitus, GERD/Reflux, Hyperlipidemia, Hypertension, Seizure Disorder, Thyroid Disorder Additional Past Medical History / Comment(s): Hypothyroidism, falls, unspecifies psychosis, constipation, muscle spasm History of Any Multi-Drug Resistant Organisms: None Reported Past Surgical History: Unable to Obtain Past Psychological History: ADD/ADHD, Depression, Schizophrenia Additional Psychological History / Comment(s): acute psychosis Smoking Status: Former smoker Past Alcohol Use History: None Reported Past Drug Use History: None Reported Medications and Allergies Home Medications Medication Instructions Recorded Confirmed Type Acetaminophen Tab [Tylenol] 500 mg PO Q8H PRN 05/14/22 05/22/22 History Aspirin EC [Ecotrin Low Dose] 81 mg PO DAILY@79905/14/22 05/22/22 History Clopidogrel [Plavix] 75 mg PO DAILY@79905/14/22 05/22/22 History Ezetimibe [Zetia] 10 mg PO HS@199905/14/22 05/22/22 History Fluticasone Nasal [place] [Flonase 1 spray EA NOSTRIL DAILY@79905/14/22 05/22/22 History Nasal [place]] INSULIN LISPRO (HumaLOG) [humaLOG] See Protocol SQ ACHS 05/14/22 05/22/22 History Levothyroxine Sodium [Synthroid] 150 mcg PO DAILY@59905/14/22 05/22/22 History Lidocaine/Menthol [Icy Hot 4%-1% 1 patch TRANSDERM BID@08,199905/14/22 05/22/22 History Patch] Loratadine 10 mg PO DAILY@79905/14/22 05/22/22 History Losartan [Cozaar] 50 mg PO DAILY@79905/14/22 05/22/22 History Melatonin 5 mg PO HS@199905/14/22 05/22/22 History Metoprolol Succinate (ER) [Toprol 75 mg PO DAILY@79905/14/22 05/22/22 History XL] Nicotine 7Mg/24Hr Patch [Habitrol] 1 patch TRANSDERM DAILY@79905/14/22 05/22/22 History Omeprazole 20 mg PO DAILY@79905/14/22 05/22/22 History guaiFENesin [Mucinex] 600 mg PO BID@08,199905/14/22 05/22/22 History hydrALAZINE HCL 25 mg PO TID@0000,0800,159905/14/22 05/22/22 History Ascorbic Acid [Vitamin C] 500 mg PO DAILY@79905/22/22 05/22/22 History Cholecalciferol [Vitamin D3 (125 125 mcg PO DAILY@79905/22/22 05/22/22 History Mcg = 5000 Iu)] Tamsulosin [Flomax] 0.4 mg PO DAILY@79905/22/22 05/22/22 History Zinc Sulfate [Orazinc] 220 mg PO DAILY@79905/22/22 05/22/22 History amLODIPine [Norvasc] 10 mg PO DAILY@79905/22/22 05/22/22 History Allergies Allergy/AdvReac Type Severity Reaction Status Date / Time pregabalin [From Lyrica] Allergy Unknown Verified 05/22/22 18:00 Wyrhqdm-UCO-UuO Reductase Allergy Unknown Verified 05/22/22 18:00 Inhibitor Sulfa (Sulfonamide Allergy Unknown Verified 05/22/22 18:00 Antibiotics) sulfacetamide Allergy Unknown Verified 05/22/22 18:00 [From Sulfacet-R] sulfur [From Sulfacet-R] Allergy Unknown Verified 05/22/22 18:00 Physical Exam Vitals: Vital Signs Temp Pulse Pulse Pulse Resp BP BP 05/23/22 08:00 98.5 F 87 16 172/113 05/23/22 02:00 97.8 F 97 17 168/94 05/22/22 23:47 102 H 16 136/72 05/22/22 15:00 98.6 F 98 18 153/97 Pulse Ox 05/23/22 08:00 100 05/23/22 02:00 98 05/22/22 23:47 99 05/22/22 15:00 98 Intake and Output 05/22/22 05/23/22 05/23/22 22:59 06:59 14:59 Other: Weight 77.111 kg -GENERAL: The patient is alert and oriented x3, patient is an [employer] and refusing to take her medication. Well developed, well nourished. HEENT: Pupils are round and equally reacting to light. EOMI. No scleral icterus. No conjunctival pallor. Normocephalic, atraumatic. No pharyngeal erythema. No thyromegaly. CARDIOVASCULAR: S1 and S2 present. No murmurs, rubs, or gallops. PULMONARY: Chest is clear to auscultation, no wheezing or crackles. ABDOMEN: Soft, nontender, nondistended, normoactive bowel sounds. No palpable organomegaly. MUSCULOSKELETAL: No joint swelling or deformity. EXTREMITIES: No cyanosis, clubbing, or pedal edema. NEUROLOGICAL: Gross neurological examination did not reveal any focal deficits. SKIN: No rashes. no petechiae. Results CBC & Chem 7: 05/22/22 22:48 05/22/22 22:48 Labs: Abnormal Lab Results - Last 24 Hours (Table) 05/22/22 05/22/22 Range/Units 22:48 22:48 WBC 10.7 H (3.8-10.6) k/uL Glucose 112 H (74-99) mg/dL Calcium 10.6 H (8.4-10.2) mg/dL Assessment and Plan Assessment: Acute psychosis with suicidal ideation Schizophrenia psychosis Noncompliance, as patient refusing her medication Covid infection without pneumoniar hypoxia Diabetes mellitus Guarded Hyperlipidemia Hypertension History of seizure disorder Hypothyroidism Plan: This is a pleasant 66 years old female with schizophrenia, psychosis and suicidal ideation however she has competent infection Continue acid at bedside Patient could not leave AMA, if she tried to leave that she would need to be petitioned Psychiatric consult Continue with vitamin C, vitamin D and zinc. No need for steroids Clonidine patch while patient still refusing her blood pressure medication continue treatment and monitoring in the medical floor for 2 days and then transferred to psych unit per hospital protocol, discussed with bed side nurse Labs and medication were reviewed.. Continue same treatment. Continue with symptomatic treatment. Resume home medication. Monitor lytes and vitals. DVT and GI prophylaxis. Further recommendations as per clinical course of the patient DVT prophylaxis: Subcutaneous heparin GI Prophylaxis: Ppi
[2022-05-23] MEDS: NICOTINE 7MG/24HR PATCH TRANSDERM SCH (10:48)
[2022-05-23] MEDS: cloNIDine 0.2 MG/24HR PATCH TRANSDERM SCH (10:48)
[2022-05-23 11:22] LABS: Glucose,Whole Blood 146 mg/dL (70-110)
[2022-05-23 16:11] LABS: Amphetamine Screen,Urine Not Detected (NotDetected); Barbiturate Screen,Urine Not Detected (NotDetected); Benzodiazepines Screen,Urine Not Detected (NotDetected); Cocaine Screen,Urine Not Detected (NotDetected); Methadone Screen, Urine Not Detected (NotDetected); Opiate Screen,Urine Not Detected (NotDetected); Oxycodone Screen, Urine Not Detected (NotDetected); Phencyclidine Screen,Urine Not Detected (NotDetected); Tricyclic Antidepressant,Urine Not Detected (NotDetected); Urn Cannabinoid Scrn Not Detected (NotDetected)
[2022-05-23 16:13] LABS: Glucose,Whole Blood 189 mg/dL (70-110)
[2022-05-23] MEDS: MELATONIN 5 MG TABLET PO SCH (20:06)
[2022-05-23] MEDS: EZETIMIBE 10 MG TAB PO SCH (20:06)
[2022-05-23] MEDS: HEPARIN SODIUM,PORCINE/PF 5,000 UNIT/0.5 ML SYRINGE SQ SCH (20:07)
[2022-05-23 20:18] LABS: Glucose,Whole Blood 217 mg/dL (70-110)
[2022-05-24] MEDS: LEVOTHYROXINE 75 MCG TAB PO SCH (05:17)
[2022-05-24] MEDS: INSULIN ASPART (NovoLOG) 100 UNIT/ML VIAL SQ SCH ×4 (09:26→22:12)
[2022-05-24 10:48] LABS: Basophils # (A) 0.1 k/uL (0-0.2); Basophils % (A) 1 %; Eosinophils # (A) 0.2 k/uL (0-0.7); Eosinophils % (A) 2 %; HCT 36.2 % (34.0-46.0); Lymphocytes % (A) 25 %; MCH 30.5 pg (25.0-35.0); MCHC 33.2 g/dL (31.0-37.0); MCV 91.8 fL (80.0-100.0); Monocytes # (A) 0.5 k/uL (0-1.0); Monocytes % (A) 6 %; Neutrophils # (A) 5.2 k/uL (1.3-7.7); Neutrophils % (A) 65 %; Platelet Count 303 k/uL (150-450); RBC 3.94 m/uL (3.80-5.40); RDW 13.4 % (11.5-15.5); WBC 8.1 k/uL (3.8-10.6)
[2022-05-24 11:02] LABS: ALT 25 U/L (4-34); AST 34 U/L (14-36); African American GFR (CKD) 84 (>60 ml/min/1.73 sqM); Albumin 3.9 g/dL (3.5-5.0); Albumin/Globulin Ratio 1.2; Alkaline Phosphatase 72 U/L (38-126); Anion Gap 8 mmol/L; Bilirubin,Unconjugated 0.3 mg/dL (0.0-1.1); Blood Urea Nitrogen 12 mg/dL (7-17); Calcium 9.5 mg/dL (8.4-10.2); Carbon Dioxide 24 mmol/L (22-30); Chloride 107 mmol/L (98-107); Globulin 3.2 g/dL; Glucose 118 mg/dL (74-99); Magnesium 1.8 mg/dL (1.6-2.3); Non-African American GFR(CKD) 73 (>60 ml/min/1.73 sqM); Potassium 3.8 mmol/L (3.5-5.1); Sodium 139 mmol/L (137-145); Total Bilirubin 0.5 mg/dL (0.2-1.3); Total Protein 7.1 g/dL (6.3-8.2)
[2022-05-24 11:12] LABS: Glucose,Whole Blood 107 mg/dL (70-110)
[2022-05-24] MEDS: ACETAMINOPHEN TAB 325 MG TAB PO PRN ×2 (11:40→17:05)
[2022-05-24] MEDS: CHOLECALCIFEROL 125 MCG (5000 IU) TABLET PO SCH (12:11)
[2022-05-24] MEDS: NICOTINE 7MG/24HR PATCH TRANSDERM SCH (12:11)
[2022-05-24] MEDS: ZINC SULFATE 220 MG CAP PO SCH (12:11)
[2022-05-24] MEDS: HEPARIN SODIUM,PORCINE/PF 5,000 UNIT/0.5 ML SYRINGE SQ SCH ×2 (12:11→20:06)
[2022-05-24] MEDS: LORATADINE 10 MG TAB PO SCH (12:11)
[2022-05-24] MEDS: ASCORBIC ACID 500 MG TAB PO SCH (12:11)
[2022-05-24] MEDS: PANTOPRAZOLE 40 MG TABLET PO SCH (12:12)
[2022-05-24] MEDS: CLOPIDOGREL 75 MG TAB PO SCH (12:13)
[2022-05-24] MEDS: amLODIPine 10 MG TAB PO SCH (12:13)
[2022-05-24] MEDS: hydrALAZINE HCL 25 MG TAB PO SCH ×2 (12:13→17:07)
[2022-05-24] MEDS: LOSARTAN 50 MG TAB PO SCH (12:13)
[2022-05-24] MEDS: METOPROLOL SUCCINATE (ER) 25 MG TAB.ER.24H PO SCH (12:13)
[2022-05-24] MEDS: ASPIRIN 81 MG PO SCH (12:13)
[2022-05-24 12:29] LABS: Amorphous Sediment,Urine Rare /hpf; Appearance,Urine Clear (Clear); Bilirubin,Urine Negative (Negative); Blood,Urine Negative (Negative); Color,Urine Yellow; Glucose,Urine (UA) Negative (Negative); Ketones,Urine Negative (Negative); Leukocyte Esterase,Urine Negative (Negative); Mucus,Urine Rare /hpf; Nitrite,Urine Negative (Negative); Protein,Urine 1+ (Negative); Specific Gravity,Urine 1.017 (1.001-1.035); Urobilinogen,Urine <2.0 mg/dL (<2.0); WBC,Urine 1 /hpf (0-5)
[2022-05-24 16:17] LABS: Glucose,Whole Blood 121 mg/dL (70-110)
[2022-05-24] MEDS: MELATONIN 5 MG TABLET PO SCH (20:06)
[2022-05-24] MEDS: EZETIMIBE 10 MG TAB PO SCH (20:06)
[2022-05-24 20:36] LABS: Glucose,Whole Blood 107 mg/dL (70-110)
--- NOTE | 2022-05-24 21:43 | P.PN ---
Subjective This is a pleasant 66 years old female with past medical history of schizophrenia, psychoses Diabetes Mellitus, GERD/Reflux, Hyperlipidemia, Hyperte nsion, Seizure Disorder, hypothyroidism She presents to the hospital with signs and symptoms but she found to have competent infection so she was admitted to the general medical floor was psychiatric consult pt sent via ems from [facility] with petition that states that wants to kill herself. I saw the patient on the medical floor in room 465, start at bedside, patient was angry and shouting and refusing to take her medication stating that she does not want to live. She denies any chest pain or dyspnea. No specific GI or urinary complaints. She has some nasal secretions. She is oriented to time place and person . She is a little bit confused. She has insight into her situation. No diarrhea, no urinary complaints. No fever. Patient refusing oral medication, risks and benefits are explained for her including her high blood pressure, she verbalized understanding and she agrees to give her treatment patch. 05/24/2022 Patient is more calm today. Sitter at bedside. She's taken some of her medication. She is hemodynamically stable. She is complaining from suprapubic discomfort, UA is showed no infection. Bladder scan about 100 mL. She remains on aspirin and Plavix and Norvasc. Repeat labs in the morning Objective - Vital Signs Vital signs: Vital Signs Temp 97.8 F 05/24/22 18:08 Pulse 102 H 05/24/22 18:08 Resp 16 05/24/22 18:08 BP 109/75 05/24/22 18:08 Pulse Ox 99 05/24/22 18:08 FiO2 Intake & Output 05/24/22 05/24/22 05/25/22 06:59 18:59 06:59 Intake Total 500 120 Output Total 200 Balance 500 -80 Intake: Oral 500 120 Output: Urine 200 Other: Voiding Method Toilet Toilet # Voids 1 - Exam -GENERAL: The patient is awake alert and more, today, not in any acute distress. Well developed, well nourished. HEENT: Pupils are round and equally reacting to light. EOMI. No scleral icterus. No conjunctival pallor. Normocephalic, atraumatic. No pharyngeal erythema. No thyromegaly. CARDIOVASCULAR: S1 and S2 present. No murmurs, rubs, or gallops. PULMONARY: Chest is clear to auscultation, no wheezing or crackles. ABDOMEN: Soft, nontender, nondistended, normoactive bowel sounds. No palpable organomegaly. MUSCULOSKELETAL: No joint swelling or deformity. EXTREMITIES: No cyanosis, clubbing, or pedal edema. NEUROLOGICAL: Gross neurological examination did not reveal any focal deficits. SKIN: No rashes. no petechiae. - Labs CBC & Chem 7: 05/24/22 09:40 05/24/22 09:40 Labs: Abnormal Lab Results - Last 24 Hours (Table) 05/23/22 05/24/22 05/24/22 Range/Units 20:16 09:40 11:49 Glucose 118 H (74-99) mg/dL POC Glucose (mg/dL) 217 H (70-110) mg/dL Urine Protein 1+ H (Negative) Amorphous Sediment Rare H (None) /hpf Urine Mucus Rare H (None) /hpf 05/24/22 Range/Units 16:16 Glucose (74-99) mg/dL POC Glucose (mg/dL) 121 H (70-110) mg/dL Urine Protein (Negative) Amorphous Sediment (None) /hpf Urine Mucus (None) /hpf Assessment and Plan Assessment: Suprapubic pain and discomfort Acute psychosis recent episodes, rule out persistent psychosis History of Schizophrenia psychosis Noncompliance, as patient refusing her medication, improved Covid infection without pneumoniar hypoxia Diabetes mellitus Guarded Hyperlipidemia Hypertension History of seizure disorder Hypothyroidism Plan: This is a pleasant 66 years old female with schizophrenia, psychosis and suicidal ideation however she has competent infection Continue seitter at bedside Psychiatric consult, EPS nurse not noted Continue monitoring abdominal pain Continue with vitamin C, vitamin D and zinc Labs and medication were reviewed.. Continue same treatment. Continue with symptomatic treatment. Resume home medication. Monitor lytes and vitals. DVT and GI prophylaxis. Further recommendations as per clinical course of the patient DVT prophylaxis: Subcutaneous heparin GI Prophylaxis: Ppi
[2022-05-25] MEDS: hydrALAZINE HCL 25 MG TAB PO SCH ×4 (01:05→23:48)
[2022-05-25] MEDS: LEVOTHYROXINE 75 MCG TAB PO SCH (07:14)
[2022-05-25 07:54] LABS: Glucose,Whole Blood 117 mg/dL (70-110)
[2022-05-25] MEDS: METOPROLOL SUCCINATE (ER) 25 MG TAB.ER.24H PO SCH (07:56)
[2022-05-25] MEDS: ASPIRIN 81 MG PO SCH (07:57)
[2022-05-25] MEDS: LOSARTAN 50 MG TAB PO SCH (07:57)
[2022-05-25] MEDS: amLODIPine 10 MG TAB PO SCH (07:57)
[2022-05-25] MEDS: CLOPIDOGREL 75 MG TAB PO SCH (07:57)
[2022-05-25] MEDS: ZINC SULFATE 220 MG CAP PO SCH (08:03)
[2022-05-25] MEDS: LORATADINE 10 MG TAB PO SCH (08:03)
[2022-05-25] MEDS: PANTOPRAZOLE 40 MG TABLET PO SCH (08:03)
[2022-05-25] MEDS: ASCORBIC ACID 500 MG TAB PO SCH (08:03)
[2022-05-25] MEDS: NICOTINE 7MG/24HR PATCH TRANSDERM SCH (08:03)
[2022-05-25] MEDS: CHOLECALCIFEROL 125 MCG (5000 IU) TABLET PO SCH (08:03)
[2022-05-25] MEDS: HEPARIN SODIUM,PORCINE/PF 5,000 UNIT/0.5 ML SYRINGE SQ SCH ×2 (08:03→20:46)
[2022-05-25] MEDS: INSULIN ASPART (NovoLOG) 100 UNIT/ML VIAL SQ SCH ×4 (08:04→22:38)
[2022-05-25 09:13] LABS: Basophils % (A) 1.1 %; Eosinophils # (A) 0.19 X 10*3/uL (0.04-0.35); HCT 34.1 % (37.2-46.3); HGB 11.2 g/dL (12.0-15.0); Immature Grans, Automated 0.4 %; Lymphocytes # (A) 3.18 X 10*3/uL (0.90-5.00); Lymphocytes % (A) 34.2 %; MCH 29.5 pg (27.0-32.0); MCHC 32.8 g/dL (32.0-37.0); MCV 89.7 fL (80.0-97.0); Mean Platelet Volume 10.7 fL (9.5-12.2); Monocytes # (A) 0.84 X 10*3/uL (0.20-1.00); NRBC Per 100 WBC 0 /100 WBCS (0.0-0.0); Neutrophils # (A) 4.94 X 10*3/uL (1.80-7.70); Neutrophils % (A) 53.3 %; Platelet Count 304 X 10*3/uL (140-440); RDW 13.3 % (11.5-14.5); WBC 9.29 X 10*3/uL (4.50-10.00)
[2022-05-25 09:31] LABS: ALT 28 U/L (8-44); AST 28 U/L (13-35); African American GFR (CKD) 78.3 (60.0-200.0); Albumin 3.9 g/dL (3.8-4.9); Albumin/Globulin Ratio 1.26 (1.60-3.17); Alkaline Phosphatase 65 U/L (41-126); BUN/Creat Ratio 10.44 Ratio (12.00-20.00); Bilirubin, Conjugated <0.20 mg/dL (0.20-0.40); Blood Urea Nitrogen 9.4 mg/dL (9.0-27.0); Calcium 9.8 mg/dL (8.7-10.3); Chloride 107 mmol/L (96-109); Globulin 3.1 g/dL (1.6-3.3); Glucose 106 mg/dL (70-110); Magnesium 1.8 mg/dL (1.5-2.4); Non-African American GFR(CKD) 67.6 (60.0-200.0); Potassium 3.5 mmol/L (3.5-5.5); Sodium 141 mmol/L (135-145)
[2022-05-25 11:46] LABS: Glucose,Whole Blood 123 mg/dL (70-110)
[2022-05-25] MEDS ORDERED: ZIPRASIDONE 20 MG CAP PO STA (13:36)
--- NOTE | 2022-05-25 13:57 | P.CN ---
Psychiatric Consult - . Consult date: 05/25/22 Consult:: 05/25/22 13:57 IDENTIFYING DATA: his patient is a single, unemployed, 66-year-old female with a reported history of seizure disorder who presented to the hospital on 05/14/2022, presenting from [facility] for under petition for making suicidal statements. HISTORY OF PRESENT ILLNESS: The patient presented to the hospital on 05/22/2022, brought into the hospital from [facility] for suicidal statements. The patient wa s recently discharged from this hospital on 05/21/2022 after being admitted onto the medical floor on a psychiatric hold for self-injurious behavior and suicidal ideation. The patient has a positive for covid and was not able to be admitted psychiatrically due to this. During her last hospitalization, this provider spoke with the patient's niece reported a significant history of mental illness from this patient including prior attempts at suicide and history of trauma and family conflict. However there was no reported significant history of psychosis. On evaluation on the medical floor, the patient vehemently denies any suicidal or homicidal ideation, intention, and/or plan. The patient denies any auditory or visual hallucinations. She reports no paranoia or other delusions. The patient states that she makes suicidal statements however would never want to actually hurt herself. She expresses that she says a lot of the stuff out of anger as she just "wishes to go home." She expresses strong disdain towards the facility of [facility]. The patient is currently not on any medications however is willing to trial medications in order to address mood stability. Of concern, the patient does report issues regarding her appetite. However she is not agreeable to starting any Remeron at this time as she felt like Remeron in the past has caused significant side effects. As per discussion with staff, the patient does display some attention seeking behavior. She displays splitting and has been splitting between idealization and disdain of staff members. Furthermore, the patient does report issues with her ambulation and reports lightheadedness which was inconsistent with the evaluation by the nurse. PAST PSYCHIATRIC HISTORY: Patient has a history of depression and possible bipolar disorder PAST MEDICAL HISTORY: Past Medical History: Diabetes Mellitus, GERD/Reflux, Hyperlipidemia, Hypertension, Seizure Disorder, Thyroid Disorder Additional Past Medical History / Comment(s): Hypothyroidism, falls, unspecifies psychosis, constipation, muscle spasm History of Any Multi-Drug Resistant Organisms: None Reported Past Surgical History: Unable to Obtain Past Psychological History: ADD/ADHD, Depression, Schizophrenia Additional Psychological History / Comment(s): acute psychosis Smoking Status: Former smoker Past Alcohol Use History: None Reported Past Drug Use History: None Reported ALLERGIES: Sulfa, sulfur, pregabalin, statins CHEMICAL DEPENDENCY HISTORY: No reported chemical dependency history. FAMILY PSYCHIATRIC/SUBSTANCE USE HISTORY: No reported family history of psychiatric illness. SOCIAL HISTORY: Patient is currently a resident of [facility]. Her brother is her guardian. She is close with her niece Dorota. MENTAL STATUS EXAM: General Appearance: Patient appears to be stated age is alert, pleasant, and cooperative. Patient appears to have fair hygiene and grooming wearing hospital gown with fair eye contact. Behavior: Patient displays elevated psychomotor activity and is unable to sit still or lie still in bed. Speech: Patient's speech is fluent and nonpressured. Loud in volume. Mood/Affect: Patient reports their mood is "I just want to go home", affect is congruent and childlike Suicidality/Homicidality: Patient denies having any suicidal or homicidal ideation intent or plan. Perceptions: Patient denies any visual hallucinations and denies any auditory hallucinations Though content/process: There is no evidence of any delusional thought content and thought process is linear and goal-directed. Memory and concentration: AOX3, grossly intact for the purposes of this session. Can spell "WORLD" backwards Judgment and insight: Poor Vital Signs Temp 97.9 F 05/25/22 13:45 Pulse 70 05/25/22 13:45 Resp 18 05/25/22 13:45 BP 105/67 05/25/22 13:45 Pulse Ox 96 05/25/22 07:50 FiO2 Intake & Output 05/24/22 05/25/22 05/25/22 18:59 06:59 18:59 Intake Total 120 Output Total 200 Balance -80 Intake: Oral 120 Output: Urine 200 Other: Voiding Method Toilet Toilet # Voids 3 # Bowel Movements 1 Laboratory Results WBC 9.29 X 10*3/uL (4.50-10.00) 05/25/22 05:03 RBC 3.80 X 10*6/uL (4.10-5.20) L 05/25/22 05:03 Hgb 11.2 g/dL (12.0-15.0) L 05/25/22 05:03 Hct 34.1 % (37.2-46.3) L 05/25/22 05:03 MCV 89.7 fL (80.0-97.0) 05/25/22 05:03 MCH 29.5 pg (27.0-32.0) 05/25/22 05:03 MCHC 32.8 g/dL (32.0-37.0) 05/25/22 05:03 RDW 13.3 % (11.5-14.5) 05/25/22 05:03 Plt Count 304 X 10*3/uL (140-440) 05/25/22 05:03 MPV 10.7 fL (9.5-12.2) 05/25/22 05:03 Immature Gran % (Auto) 0.4 % 05/25/22 05:03 Absolute Nucleated RBC 0 X 10*3/uL (0.00-0.00) 05/25/22 05:03 Neutrophils % 53.3 % 05/25/22 05:03 Lymphocytes % 34.2 % 05/25/22 05:03 Monocytes % 9.0 % 05/25/22 05:03 Eosinophils % 2.0 % 05/25/22 05:03 Basophils % 1.1 % 05/25/22 05:03 Immature Gran # 0.04 X 10*3/uL (0.00-0.04) 05/25/22 05:03 Neutrophils # 4.94 X 10*3/uL (1.80-7.70) 05/25/22 05:03 Lymphocytes # 3.18 X 10*3/uL (0.90-5.00) 05/25/22 05:03 Monocytes # 0.84 X 10*3/uL (0.20-1.00) 05/25/22 05:03 Eosinophils # 0.19 X 10*3/uL (0.04-0.35) 05/25/22 05:03 Basophils # 0.10 X 10*3/uL (0.00-0.10) 05/25/22 05:03 NRBC/100 WBC Diff 0 /100 WBCS (0.0-0.0) 05/25/22 05:03 Sodium 141 mmol/L (135-145) 05/25/22 05:03 Potassium 3.5 mmol/L (3.5-5.5) 05/25/22 05:03 Chloride 107 mmol/L (96-109) 05/25/22 05:03 Carbon Dioxide 23.0 mmol/L (20.0-27.5) 05/25/22 05:03 Anion Gap 11.00 mmol/L (10.00-18.00) 05/25/22 05:03 BUN 9.4 mg/dL (9.0-27.0) 05/25/22 05:03 Creatinine 0.9 mg/dL (0.6-1.5) 05/25/22 05:03 Est GFR (CKD-EPI)AfAm 78.3 (60.0-200.0) 05/25/22 05:03 Est GFR (CKD-EPI)NonAf 67.6 (60.0-200.0) 05/25/22 05:03 BUN/Creatinine Ratio 10.44 Ratio (12.00-20.00) L 05/25/22 05:03 Glucose 106 mg/dL (70-110) 05/25/22 05:03 POC Glucose (mg/dL) 123 mg/dL (70-110) H 05/25/22 11:38 POC Glu [employer]ature [employer] Anahi Britton 05/25/22 11:38 Calcium 9.8 mg/dL (8.7-10.3) 05/25/22 05:03 Magnesium 1.8 mg/dL (1.5-2.4) 05/25/22 05:03 Total Bilirubin 0.40 mg/dL (0.30-1.20) 05/25/22 05:03 Conjugated Bilirubin <0.20 mg/dL (0.20-0.40) L 05/25/22 05:03 Unconjugated Bilirubin mg/dL (0.20-1.00) 05/25/22 05:03 AST 28 U/L (13-35) 05/25/22 05:03 ALT 28 U/L (8-44) 05/25/22 05:03 Alkaline Phosphatase 65 U/L (41-126) 05/25/22 05:03 Total Protein 7.0 g/dL (6.2-8.2) 05/25/22 05:03 Albumin 3.9 g/dL (3.8-4.9) 05/25/22 05:03 Globulin 3.1 g/dL (1.6-3.3) 05/25/22 05:03 Albumin/Globulin Ratio 1.26 g/dL (1.60-3.17) L 05/25/22 05:03 Procalcitonin 0.05 ng/mL (0.02-0.09) 05/25/22 05:03 Urine Color Yellow 05/24/22 11:49 Urine Appearance Clear (Clear) 05/24/22 11:49 Urine pH 6.0 (5.0-8.0) 05/24/22 11:49 Ur Specific [place] 1.017 (1.001-1.035) 05/24/22 11:49 Urine Protein 1+ (Negative) H 05/24/22 11:49 Urine Glucose (UA) Negative (Negative) 05/24/22 11:49 Urine Ketones Negative (Negative) 05/24/22 11:49 Urine Blood Negative (Negative) 05/24/22 11:49 Urine Nitrite Negative (Negative) 05/24/22 11:49 Urine Bilirubin Negative (Negative) 05/24/22 11:49 Urine Urobilinogen <2.0 mg/dL (<2.0) 05/24/22 11:49 Ur Leukocyte Esterase Negative (Negative) 05/24/22 11:49 Urine WBC 1 /hpf (0-5) 05/24/22 11:49 Amorphous Sediment Rare /hpf (None) H 05/24/22 11:49 Urine Mucus Rare /hpf (None) H 05/24/22 11:49 Urine Opiates Screen Not Detected (NotDetected) 05/23/22 15:47 Ur Oxycodone Screen Not Detected (NotDetected) 05/23/22 15:47 Urine Methadone Screen Not Detected (NotDetected) 05/23/22 15:47 Ur Propoxyphene Screen Not Detected (NotDetected) 05/23/22 15:47 Ur Barbiturates Screen Not Detected (NotDetected) 05/23/22 15:47 U Tricyclic Antidepress Not Detected (NotDetected) 05/23/22 15:47 Ur Phencyclidine Scrn Not Detected (NotDetected) 05/23/22 15:47 Ur Amphetamines Screen Not Detected (NotDetected) 05/23/22 15:47 U Methamphetamines Scrn Not Detected (NotDetected) 05/23/22 15:47 U Benzodiazepines Scrn Not Detected (NotDetected) 05/23/22 15:47 Urine Cocaine Screen Not Detected (NotDetected) 05/23/22 15:47 U Marijuana (THC) Screen Not Detected (NotDetected) 05/23/22 15:47 Allergies Allergy/AdvReac Type Severity Reaction Status Date / Time pregabalin [From Lyrica] Allergy Unknown Verified 05/22/22 18:00 Opxbsug-[id number]-UlY Reductase Allergy Unknown Verified 05/22/22 18:00 Inhibitor Sulfa (Sulfonamide Allergy Unknown Verified 05/22/22 18:00 Antibiotics) sulfacetamide Allergy Unknown Verified 05/22/22 18:00 [From Sulfacet-R] sulfur [From Sulfacet-R] Allergy Unknown Verified 05/22/22 18:00 IMPRESSIONS: Unspecified mood disorder Cluster B personality disorder PLAN: -At this time patient DOES NOT meet criteria for inpatient psychiatric admission. We will continue to explore whether the patient requires inpatient psychiatric admission however at this time, the patient is not presenting with any imminent risk of harm to self or others. The patient appears to be quite histrionic and speaks in much hyperbole. She would likely benefit from placement at home versus her environment at [facility]. -Delirium precautions recommended with patient including - avoiding use of narcotics and TAILING HAND sedatives, limit anticholinergic medications when possible, frequent re-orientation, minimize use of restraints, open window shades during the day and close them at night -Would recommend the following medication changes/additions: Start Geodon 20 mg by mouth twice a day for mood stabilization -Continue 1:1 sitter for safety -Will continue to follow along 05/25/22 13:57
[2022-05-25 16:16] LABS: Glucose,Whole Blood 158 mg/dL (70-110)
[2022-05-25] MEDS: MELATONIN 5 MG TABLET PO SCH (20:46)
[2022-05-25] MEDS: ZIPRASIDONE 20 MG CAP PO SCH (20:46)
[2022-05-25] MEDS: EZETIMIBE 10 MG TAB PO SCH (20:46)
--- NOTE | 2022-05-25 20:58 | P.PN ---
Subjective This is a pleasant 66 years old female with past medical history of schizophrenia, psychoses Diabetes Mellitus, GERD/Reflux, Hyperlipidemia, Hyperte nsion, Seizure Disorder, hypothyroidism She presents to the hospital with signs and symptoms but she found to have competent infection so she was admitted to the general medical floor was psychiatric consult pt [facility] that states that wants to kill herself. I saw the patient on the medical floor in room 465, start at bedside, patient was angry and shouting and refusing to take her medication stating that she does not want to live. She denies any chest pain or dyspnea. No specific GI or urinary complaints. She has some nasal secretions. She is oriented to time place and person . She is a little bit confused. She has insight into her situation. No diarrhea, no urinary complaints. No fever. Patient refusing oral medication, risks and benefits are explained for her including her high blood pressure, she verbalized understanding and she agrees to give her treatment patch. 05/24/2022 Patient is more calm today. Sitter at bedside. She's taken some of her medication. She is hemodynamically stable. She is complaining from suprapubic discomfort, UA is showed no infection. Bladder scan about 100 mL. She remains on aspirin and Plavix and Norvasc. Repeat labs in the morning 05/25/2022 This morning patient looked little more emotional and paranoid compared to yesterday. I discussed the case with the psychiatric team, they think patient has an unspecified more disorder and cluster B personality disorder. Patient is started on Geodon today. Vitals and labs look stable. pro- Calcitonin is negative. Her competent infection is asymptomatic. Her suprapubic pain has resolved. She denies any other specific physical symptoms or signs Objective - Vital Signs Vital signs: Vital Signs Temp 97.6 F 05/25/22 00:20 Pulse 112 H 05/25/22 07:50 Resp 18 05/25/22 07:50 BP 166/80 05/25/22 07:50 Pulse Ox 96 05/25/22 07:50 FiO2 Intake & Output 05/24/22 05/25/22 05/25/22 18:59 06:59 18:59 Intake Total 120 Output Total 200 Balance -80 Intake: Oral 120 Output: Urine 200 Other: Voiding Method Toilet Toilet # Voids 3 # Bowel Movements 1 - Exam -GENERAL: The patient is awake alert and more, today, not in any acute distress. Well developed, well nourished. HEENT: Pupils are round and equally reacting to light. EOMI. No scleral icterus. No conjunctival pallor. Normocephalic, atraumatic. No pharyngeal erythema. No thyromegaly. CARDIOVASCULAR: S1 and S2 present. No murmurs, rubs, or gallops. PULMONARY: Chest is clear to auscultation, no wheezing or crackles. ABDOMEN: Soft, nontender, nondistended, normoactive bowel sounds. No palpable organomegaly. MUSCULOSKELETAL: No joint swelling or deformity. EXTREMITIES: No cyanosis, clubbing, or pedal edema. NEUROLOGICAL: Gross neurological examination did not reveal any focal deficits. SKIN: No rashes. no petechiae. - Labs CBC & Chem 7: 05/25/22 05:03 05/25/22 05:03 Labs: Abnormal Lab Results - Last 24 Hours (Table) 05/24/22 05/24/22 05/25/22 Range/Units 11:49 16:16 05:03 RBC (4.10-5.20) X 10*6/uL Hgb (12.0-15.0) g/dL Hct (37.2-46.3) % BUN/Creatinine Ratio 10.44 L (12.00-20.00) Ratio POC Glucose (mg/dL) 121 H (70-110) mg/dL Conjugated Bilirubin <0.20 L (0.20-0.40) mg/dL Albumin/Globulin Ratio 1.26 L (1.60-3.17) g/dL Urine Protein 1+ H (Negative) Amorphous Sediment Rare H (None) /hpf Urine Mucus Rare H (None) /hpf 05/25/22 05/25/22 05/25/22 Range/Units 05:03 07:49 11:38 RBC 3.80 L (4.10-5.20) X 10*6/uL Hgb 11.2 L (12.0-15.0) g/dL Hct 34.1 L (37.2-46.3) % BUN/Creatinine Ratio (12.00-20.00) Ratio POC Glucose (mg/dL) 117 H 123 H (70-110) mg/dL Conjugated Bilirubin (0.20-0.40) mg/dL Albumin/Globulin Ratio (1.60-3.17) g/dL Urine Protein (Negative) Amorphous Sediment (None) /hpf Urine Mucus (None) /hpf Assessment and Plan Assessment: unspecified more disorder and cluster B personality disorder Suprapubic pain and discomfort, resolved History of Schizophrenia psychosis Noncompliance, as patient refusing her medication, improved Covid infection without pneumoniar hypoxia Diabetes mellitus Hyperlipidemia Hypertension History of seizure disorder Hypothyroidism Plan: This is a pleasant 66 years old female with schizophrenia, psychosis and suicidal ideation however she has competent infection Continue seitter at bedside Psychiatric consult is appreciated, patient was started on Geodon Continue monitoring Continue with vitamin C, vitamin D and zinc Labs and medication were reviewed.. Continue same treatment. Continue with symptomatic treatment. Resume home medication. Monitor lytes and vitals. DVT and GI prophylaxis. Further recommendations as per clinical course of the patient DVT prophylaxis: Subcutaneous heparin GI Prophylaxis: Ppi
[2022-05-25 22:38] LABS: Glucose,Whole Blood 183 mg/dL (70-110)
[2022-05-26] MEDS: LEVOTHYROXINE 75 MCG TAB PO SCH (05:18)
[2022-05-26 07:45] LABS: Glucose,Whole Blood 158 mg/dL (70-110)
[2022-05-26] MEDS: ASCORBIC ACID 500 MG TAB PO SCH (08:05)
[2022-05-26] MEDS: LORATADINE 10 MG TAB PO SCH (08:05)
[2022-05-26] MEDS: LOSARTAN 50 MG TAB PO SCH (08:05)
[2022-05-26] MEDS: METOPROLOL SUCCINATE (ER) 25 MG TAB.ER.24H PO SCH (08:06)
[2022-05-26] MEDS: amLODIPine 10 MG TAB PO SCH (08:06)
[2022-05-26] MEDS: ASPIRIN 81 MG PO SCH (08:06)
[2022-05-26] MEDS: hydrALAZINE HCL 25 MG TAB PO SCH ×3 (08:06→23:58)
[2022-05-26] MEDS: CHOLECALCIFEROL 125 MCG (5000 IU) TABLET PO SCH (08:06)
[2022-05-26] MEDS: ZINC SULFATE 220 MG CAP PO SCH (08:06)
[2022-05-26] MEDS: CLOPIDOGREL 75 MG TAB PO SCH (08:06)
[2022-05-26] MEDS: PANTOPRAZOLE 40 MG TABLET PO SCH (08:06)
[2022-05-26] MEDS: HEPARIN SODIUM,PORCINE/PF 5,000 UNIT/0.5 ML SYRINGE SQ SCH ×2 (08:07→21:27)
[2022-05-26] MEDS: INSULIN ASPART (NovoLOG) 100 UNIT/ML VIAL SQ SCH ×4 (08:07→20:19)
[2022-05-26] MEDS: ZIPRASIDONE 20 MG CAP PO SCH ×2 (08:08→21:27)
[2022-05-26] MEDS: NICOTINE 7MG/24HR PATCH TRANSDERM SCH (08:08)
[2022-05-26 11:41] LABS: Glucose,Whole Blood 136 mg/dL (70-110)
--- NOTE | 2022-05-26 12:59 | P.PN ---
Progress Note - Text Progress Note Date: 05/26/22 Interval History: Patient was seen resting in bed and was directable and agreeable to speak with investment underwriter in her room. Currently, the patient is not reporting any suicidal or homicidal ideation, intention, and/or plan. She also states this provider that if he is going to continue to see her, her answer will always be "no" and that she is not ever going to be suicidal. The patient is currently not reporting any auditory or visual hallucinations. She is denying any paranoia or other delusions. The patient expresses future orientation and strong desire to move into her own place. She has been adherent with her Geodon and is not reporting any significant side effects at this time. She reports no issues regarding her sleep or her appetite. Mental Status Exam: General Appearance: Patient appears to be stated age is alert, directable, and cooperative. Behavior: Patient is calmly seated upright on her bed without any agitated behavior. Speech: Patient's speech is fluent and nonpressured. Mood/Affect: Mood is "I'm okay," affect is expansive and at times histrionic. Suicidality/Homicidality: Patient denies having any suicidal or homicidal ideation intent or plan. Perceptions: Patient denies any visual hallucinations and denies any auditory hallucinations Though content/process: There is no evidence of any delusional thought content and thought process is linear and goal-directed. Memory and concentration: AOX3, grossly intact for the purposes of this session Judgment and insight: Improving mildly Vital Signs Temp 97.9 F 05/26/22 08:00 Pulse 71 05/26/22 08:00 Resp 20 05/26/22 08:00 BP 129/82 05/26/22 08:00 Pulse Ox 100 05/26/22 08:00 FiO2 Intake & Output 05/25/22 05/26/22 05/26/22 18:59 06:59 18:59 Other: Voiding Method Toilet Toilet # Voids 1 4 Laboratory Results - Last 24 Hours 05/25/22 05/25/22 05/26/22 16:14 22:36 07:44 POC Glucose (mg/dL) 158 H 183 H 158 H POC Glu Box Puller Shelley Delgado Katie Murdick, Paige 05/26/22 11:40 POC Glucose (mg/dL) 136 H POC Glu Box Puller ID Edwina Rendon Assessment Unspecified mood disorder Cluster B personality disorder Plan: -At this time patient DOES NOT meet criteria for inpatient psychiatric admission. The patient is not endorsing any overt suicidal or homicidal ideation, intention, and/or plan. She also lacks means for suicide. She is vehemently denying any psychiatric pathology at this time. She has been adherent with the medications is not reporting side effects. -Delirium precautions recommended with patient including - avoiding use of narcotics and CATALOG LIBRARIAN sedatives, limit anticholinergic medications when possible, frequent re-orientation, minimize use of restraints, open window shades during the day and close them at night -Would recommend the following medication changes/additions: Continue Geodon 20 mg by mouth twice a day for mood stabilization -Continue 1:1 sitter for safety -Will continue to follow along
[2022-05-26 16:19] LABS: Glucose,Whole Blood 116 mg/dL (70-110)
[2022-05-26] MEDS: EZETIMIBE 10 MG TAB PO SCH (19:07)
[2022-05-26] MEDS: MELATONIN 5 MG TABLET PO SCH (19:07)
[2022-05-26 20:07] LABS: Glucose,Whole Blood 122 mg/dL (70-110)
[2022-05-26] MEDS ORDERED: ZIPRASIDONE 20 MG VIAL IM ONE (21:00)
--- NOTE | 2022-05-26 21:23 | P.PN ---
Subjective This is a pleasant 66 years old female with past medical history of schizophrenia, psychoses Diabetes Mellitus, GERD/Reflux, Hyperlipidemia, Hyperte nsion, Seizure Disorder, hypothyroidism She presents to the hospital with signs and symptoms but she found to have competent infection so she was admitted to the general medical floor was psychiatric consult pt sent via ems from [facility] with petition that states that wants to kill herself. I saw the patient on the medical floor in room 465, start at bedside, patient was angry and shouting and refusing to take her medication stating that she does not want to live. She denies any chest pain or dyspnea. No specific GI or urinary complaints. She has some nasal secretions. She is oriented to time place and person . She is a little bit confused. She has insight into her situation. No diarrhea, no urinary complaints. No fever. Patient refusing oral medication, risks and benefits are explained for her including her high blood pressure, she verbalized understanding and she agrees to give her treatment patch. 05/24/2022 Patient is more calm today. Sitter at bedside. She's taken some of her medication. She is hemodynamically stable. She is complaining from suprapubic discomfort, UA is showed no infection. Bladder scan about 100 mL. She remains on aspirin and Plavix and Norvasc. Repeat labs in the morning 05/25/2022 This morning patient looked little more emotional and paranoid compared to yesterday. I discussed the case with the psychiatric team, they think patient has an unspecified more disorder and cluster B personality disorder. Patient is started on Geodon today. Vitals and labs look stable. pro- Calcitonin is negative. Her competent infection is asymptomatic. Her suprapubic pain has resolved. She denies any other specific physical symptoms or signs 05/26/2022 patient looks, in the morning however during the evening is AGITATED, however she looks improving compared to admission Psychiatric team are following her closely Patient is been treated with Geodon Sitter at bedside Patient denies any other physical complaints, no chest pain or abdominal pain, no coughing or dyspnea, no diarrhea. Objective - Vital Signs Vital signs: Vital Signs Temp 97.9 F 05/26/22 08:00 Pulse 71 05/26/22 08:00 Resp 20 05/26/22 08:00 BP 129/82 05/26/22 08:00 Pulse Ox 100 05/26/22 08:00 FiO2 Intake & Output 05/25/22 05/26/22 05/26/22 18:59 06:59 18:59 Other: Voiding Method Toilet Toilet # Voids 1 4 - Exam -GENERAL: The patient is awake alert and more, today, not in any acute distress. Well developed, well nourished. HEENT: Pupils are round and equally reacting to light. EOMI. No scleral icterus. No conjunctival pallor. Normocephalic, atraumatic. No pharyngeal erythema. No thyromegaly. CARDIOVASCULAR: S1 and S2 present. No murmurs, rubs, or gallops. PULMONARY: Chest is clear to auscultation, no wheezing or crackles. ABDOMEN: Soft, nontender, nondistended, normoactive bowel sounds. No palpable organomegaly. MUSCULOSKELETAL: No joint swelling or deformity. EXTREMITIES: No cyanosis, clubbing, or pedal edema. NEUROLOGICAL: Gross neurological examination did not reveal any focal deficits. SKIN: No rashes. no petechiae. - Labs CBC & Chem 7: 05/25/22 05:03 05/25/22 05:03 Labs: Abnormal Lab Results - Last 24 Hours (Table) 05/25/22 05/25/22 05/25/22 Range/Units 11:38 16:14 22:36 POC Glucose (mg/dL) 123 H 158 H 183 H (70-110) mg/dL 05/26/22 Range/Units 07:44 POC Glucose (mg/dL) 158 H (70-110) mg/dL Assessment and Plan Assessment: unspecified more disorder and cluster B personality disorder Suprapubic pain and discomfort, resolved History of Schizophrenia psychosis Noncompliance, as patient refusing her medication, improved Covid infection without pneumoniar hypoxia Diabetes mellitus Hyperlipidemia Hypertension History of seizure disorder Hypothyroidism Plan: This is a pleasant 66 years old female with schizophrenia, psychosis and suicidal ideation however she has competent infection Continue seitter at bedside Psychiatric consult is appreciated, patient was started on Geodon Continue monitoring Continue with vitamin C, vitamin D and zinc Labs and medication were reviewed.. Continue same treatment. Continue with symptomatic treatment. Resume home medication. Monitor lytes and vitals. DVT and GI prophylaxis. Further recommendations as per clinical course of the patient DVT prophylaxis: Subcutaneous heparin GI Prophylaxis: Ppi
[2022-05-27] MEDS: LEVOTHYROXINE 75 MCG TAB PO SCH (05:36)
[2022-05-27] MEDS: INSULIN ASPART (NovoLOG) 100 UNIT/ML VIAL SQ SCH ×4 (08:38→21:36)
[2022-05-27] MEDS: ASPIRIN 81 MG PO SCH (09:11)
[2022-05-27] MEDS: LORATADINE 10 MG TAB PO SCH (09:11)
[2022-05-27] MEDS: amLODIPine 10 MG TAB PO SCH (09:11)
[2022-05-27] MEDS: METOPROLOL SUCCINATE (ER) 25 MG TAB.ER.24H PO SCH (09:11)
[2022-05-27] MEDS: hydrALAZINE HCL 25 MG TAB PO SCH ×3 (09:12→23:11)
[2022-05-27] MEDS: CLOPIDOGREL 75 MG TAB PO SCH (09:12)
[2022-05-27] MEDS: HEPARIN SODIUM,PORCINE/PF 5,000 UNIT/0.5 ML SYRINGE SQ SCH ×2 (09:12→21:36)
[2022-05-27] MEDS: CHOLECALCIFEROL 125 MCG (5000 IU) TABLET PO SCH (09:12)
[2022-05-27] MEDS: LOSARTAN 50 MG TAB PO SCH (09:12)
[2022-05-27] MEDS: ZIPRASIDONE 20 MG CAP PO SCH (09:13)
[2022-05-27] MEDS: PANTOPRAZOLE 40 MG TABLET PO SCH (09:13)
[2022-05-27] MEDS: ASCORBIC ACID 500 MG TAB PO SCH (09:13)
[2022-05-27] MEDS: ZINC SULFATE 220 MG CAP PO SCH (09:13)
[2022-05-27] MEDS: NICOTINE 7MG/24HR PATCH TRANSDERM SCH (09:14)
[2022-05-27 11:15] LABS: Glucose,Whole Blood 104 mg/dL (70-110)
--- NOTE | 2022-05-27 13:33 | P.PN ---
Progress Note - Text Progress Note Date: 05/27/22 Interval History: Patient was seen resting in bed and was directable and agreeable to speak with gag writer in her room. Currently, the patient is not reporting any suicidal or homicidal ideation, intention, and/or plan. The patient did have an episode of agitation was difficult to redirect yesterday and required the administration of PRN medication. Patient expresses that she was annoyed with how close staff are in helping her use the restroom. She is otherwise not reporting any auditory or visual hallucinations. She denies any paranoia or other delusions. She has been adherent to medication and is not reporting any significant side effects. She reports no issues regarding her sleep or her appetite. Mental Status Exam: General Appearance: Patient appears to be stated age is alert, directable, and cooperative. Behavior: Patient is calmly lying down in bed without any agitated behavior. Speech: Patient's speech is fluent and nonpressured. Mood/Affect: Mood is "I don't like them being so close," affect is slightly expansive and a little irritable. Suicidality/Homicidality: Patient denies having any suicidal or homicidal ideation intent or plan. Perceptions: Patient denies any visual hallucinations and denies any auditory hallucinations Though content/process: There is no evidence of any delusional thought content and thought process is linear and goal-directed. Memory and concentration: AOX3, grossly intact for the purposes of this session Judgment and insight: Improving mildly Vital Signs Temp 98.8 F 05/27/22 08:00 Pulse 111 H 05/27/22 08:00 Resp 16 05/27/22 09:00 BP 110/76 05/27/22 08:00 Pulse Ox 98 05/27/22 08:00 FiO2 Intake & Output 05/26/22 05/27/22 05/27/22 18:59 06:59 18:59 Other: Voiding Method Toilet Toilet # Voids 1 3 Assessment Unspecified mood disorder Cluster B personality disorder Plan: -At this time patient DOES NOT meet criteria for inpatient psychiatric admission. The patient is not endorsing any overt suicidal or homicidal ideation, intention, and/or plan. Although the patient presents with some irritability, she is not presenting with any overt acute psychiatric illness. -Delirium precautions recommended with patient including - avoiding use of narcotics and STAFF PSYCHIATRIST sedatives, limit anticholinergic medications when possible, frequent re-orientation, minimize use of restraints, open window shades during the day and close them at night -Would recommend the following medication changes/additions: Increase Geodon to 40 mg by mouth twice a day for mood stabilization and to address irritability and episodes of agitation -Continue 1:1 sitter for safety -Will continue to follow along
[2022-05-27 17:08] LABS: Glucose,Whole Blood 160 mg/dL (70-110)
[2022-05-27 21:18] LABS: Glucose,Whole Blood 180 mg/dL (70-110)
[2022-05-27] MEDS: ZIPRASIDONE 40 MG CAP PO SCH (21:35)
[2022-05-27] MEDS: EZETIMIBE 10 MG TAB PO SCH (21:35)
[2022-05-27] MEDS: MELATONIN 5 MG TABLET PO SCH (21:35)
--- NOTE | 2022-05-28 01:23 | P.PN ---
Subjective This is a pleasant 66 years old female with past medical history of schizophrenia, psychoses Diabetes Mellitus, GERD/Reflux, Hyperlipidemia, Hyperte nsion, Seizure Disorder, hypothyroidism She presents to the hospital with signs and symptoms but she found to have competent infection so she was admitted to the general medical floor was psychiatric consult pt sent via ems from [facility] with petition that states that wants to kill herself. I saw the patient on the medical floor in room 465, start at bedside, patient was angry and shouting and refusing to take her medication stating that she does not want to live. She denies any chest pain or dyspnea. No specific GI or urinary complaints. She has some nasal secretions. She is oriented to time place and person . She is a little bit confused. She has insight into her situation. No diarrhea, no urinary complaints. No fever. Patient refusing oral medication, risks and benefits are explained for her including her high blood pressure, she verbalized understanding and she agrees to give her treatment patch. 05/24/2022 Patient is more calm today. Sitter at bedside. She's taken some of her medication. She is hemodynamically stable. She is complaining from suprapubic discomfort, UA is showed no infection. Bladder scan about 100 mL. She remains on aspirin and Plavix and Norvasc. Repeat labs in the morning 05/25/2022 This morning patient looked little more emotional and paranoid compared to yesterday. I discussed the case with the psychiatric team, they think patient has an unspecified more disorder and cluster B personality disorder. Patient is started on Geodon today. Vitals and labs look stable. pro- Calcitonin is negative. Her competent infection is asymptomatic. Her suprapubic pain has resolved. She denies any other specific physical symptoms or signs 05/26/2022 patient looks, in the morning however during the evening is AGITATED, however she looks improving compared to admission Psychiatric team are following her closely Patient is been treated with Geodon Sitter at bedside Patient denies any other physical complaints, no chest pain or abdominal pain, no coughing or dyspnea, no diarrhea. 05/27/2022 Patient is still getting agitation at times goes by her psychiatric illness, Citrucel at bedside I discussed the case with psychiatry service today Her dose of Geodon is increased from 20 up to 40 mg twice a day and he will keep monitoring Objective - Vital Signs Vital signs: Vital Signs Temp 98.8 F 05/27/22 08:00 Pulse 111 H 05/27/22 08:00 Resp 16 05/27/22 09:00 BP 110/76 05/27/22 08:00 Pulse Ox 98 05/27/22 08:00 FiO2 Intake & Output 05/26/22 05/27/22 05/27/22 18:59 06:59 18:59 Other: Voiding Method Toilet Toilet # Voids 1 3 - Exam -GENERAL: The patient is awake alert and more, today, not in any acute distress. Well developed, well nourished. HEENT: Pupils are round and equally reacting to light. EOMI. No scleral icterus. No conjunctival pallor. Normocephalic, atraumatic. No pharyngeal erythema. No thyromegaly. CARDIOVASCULAR: S1 and S2 present. No murmurs, rubs, or gallops. PULMONARY: Chest is clear to auscultation, no wheezing or crackles. ABDOMEN: Soft, nontender, nondistended, normoactive bowel sounds. No palpable organomegaly. MUSCULOSKELETAL: No joint swelling or deformity. EXTREMITIES: No cyanosis, clubbing, or pedal edema. NEUROLOGICAL: Gross neurological examination did not reveal any focal deficits. SKIN: No rashes. no petechiae. - Labs CBC & Chem 7: 05/25/22 05:03 05/25/22 05:03 Labs: Abnormal Lab Results - Last 24 Hours (Table) 05/26/22 05/26/22 Range/Units 16:16 20:05 POC Glucose (mg/dL) 116 H 122 H (70-110) mg/dL Assessment and Plan Assessment: unspecified more disorder and cluster B personality disorder Suprapubic pain and discomfort, resolved History of Schizophrenia psychosis Noncompliance, as patient refusing her medication, improved Covid infection without pneumoniar hypoxia Diabetes mellitus Hyperlipidemia Hypertension History of seizure disorder Hypothyroidism Plan: This is a pleasant 66 years old female with schizophrenia, psychosis and suicida l ideation however she has competent infection Continue seitter at bedside Psychiatric consult is appreciated, patient was started on Geodon, on the dose increased to 40 mg daily Continue monitoring Continue with vitamin C, vitamin D and zinc Labs and medication were reviewed.. Continue same treatment. Continue with symptomatic treatment. Resume home medication. Monitor lytes and vitals. DVT and GI prophylaxis. Further recommendations as per clinical course of the patient DVT prophylaxis: Subcutaneous heparin GI Prophylaxis: Ppi
[2022-05-28 07:25] LABS: Glucose,Whole Blood 127 mg/dL (70-110)
[2022-05-28] MEDS: LOSARTAN 50 MG TAB PO SCH (10:07)
[2022-05-28] MEDS: ASPIRIN 81 MG PO SCH (10:07)
[2022-05-28] MEDS: CLOPIDOGREL 75 MG TAB PO SCH (10:07)
[2022-05-28] MEDS: ZINC SULFATE 220 MG CAP PO SCH (10:08)
[2022-05-28] MEDS: ASCORBIC ACID 500 MG TAB PO SCH (10:08)
[2022-05-28] MEDS: LORATADINE 10 MG TAB PO SCH (10:08)
[2022-05-28] MEDS: amLODIPine 10 MG TAB PO SCH (10:09)
[2022-05-28] MEDS: hydrALAZINE HCL 25 MG TAB PO SCH ×3 (10:09→23:38)
[2022-05-28] MEDS: CHOLECALCIFEROL 125 MCG (5000 IU) TABLET PO SCH (10:09)
[2022-05-28] MEDS: HEPARIN SODIUM,PORCINE/PF 5,000 UNIT/0.5 ML SYRINGE SQ SCH ×2 (10:10→19:52)
[2022-05-28] MEDS: ZIPRASIDONE 40 MG CAP PO SCH ×2 (10:10→19:53)
[2022-05-28] MEDS: LEVOTHYROXINE 75 MCG TAB PO SCH (10:10)
[2022-05-28] MEDS: PANTOPRAZOLE 40 MG TABLET PO SCH (10:10)
[2022-05-28] MEDS: METOPROLOL SUCCINATE (ER) 25 MG TAB.ER.24H PO SCH (10:11)
[2022-05-28] MEDS: INSULIN ASPART (NovoLOG) 100 UNIT/ML VIAL SQ SCH ×4 (10:12→19:53)
[2022-05-28] MEDS: NICOTINE 7MG/24HR PATCH TRANSDERM SCH (10:22)
[2022-05-28 12:09] LABS: Glucose,Whole Blood 217 mg/dL (70-110)
[2022-05-28 12:32] VITALS: BMI 26.6
--- NOTE | 2022-05-28 13:07 | P.PN ---
Progress Note - Text Progress Note Date: 05/28/22 Interval History: Patient was seen resting in bed and was directable and agreeable to speak with chart writer in her room. The patient is vehemently denying any suicidal or homicidal ideation, intention, and/or plan. She is not reporting any auditory or visual hallucinations. She is alert and oriented in all spheres. She denies any issues regarding her sleep or her appetite. The patient does express numerous needs including wanting some chips. She remains future oriented. Mental Status Exam: General Appearance: Patient appears to be stated age is alert, directable, and cooperative. Behavior: Patient is calmly lying down in bed without any agitated behavior. Speech: Patient's speech is fluent and nonpressured. Mood/Affect: Mood is "I'm okay" affect is slightly expansive and a little histrionic. Suicidality/Homicidality: Patient denies having any suicidal or homicidal ideation intent or plan. Perceptions: Patient denies any visual hallucinations and denies any auditory hallucinations Though content/process: There is no evidence of any delusional thought content and thought process is linear and goal-directed. Memory and concentration: AOX3, grossly intact for the purposes of this session Judgment and insight: Improving mildly Vital Signs Temp 98.2 F 05/28/22 08:00 Pulse 90 05/28/22 08:00 Resp 16 05/28/22 08:00 BP 130/81 05/28/22 08:00 Pulse Ox 98 05/28/22 08:00 FiO2 Intake & Output 05/27/22 05/28/22 05/28/22 18:59 06:59 18:59 Intake Total 222 Balance 222 Weight 77.111 kg Intake: Oral 222 Other: Voiding Method Toilet Toilet # Voids 1 Laboratory Results - Last 24 Hours 05/27/22 05/27/22 05/28/22 17:06 21:16 07:24 POC Glucose (mg/dL) 160 H 180 H 127 H POC Glu Registered Dental Assistant ID Edwina Rendon Bonnie Bowen, Kristen 05/28/22 12:07 POC Glucose (mg/dL) 217 H POC Glu Registered Dental Assistant ID Julieta Heredia Assessment Unspecified mood disorder Cluster B personality disorder Plan: -At this time patient DOES NOT meet criteria for inpatient psychiatric admission. The patient is not endorsing any overt suicidal or homicidal ideation, intention, and/or plan. Although the patient presents with some irritability, she is not presenting with any overt acute psychiatric illness. It is likely that she is an underlying personality disorder. -Delirium precautions recommended with patient including - avoiding use of narcotics and EDUCATION TECHNICIAN sedatives, limit anticholinergic medications when possible, frequent re-orientation, minimize use of restraints, open window shades during the day and close them at night -Would recommend the following medication changes/additions: Continue Geodon 40 mg by mouth twice a day for mood stabilization and to address irritability and episodes of agitation -Discontinue one-to-one sitter -Psychiatry will sign off at this time. Please call us or contact us with any questions or concerns. Please reconsult us if necessary.
[2022-05-28 16:47] LABS: Glucose,Whole Blood 121 mg/dL (70-110)
[2022-05-28] MEDS: MELATONIN 5 MG TABLET PO SCH (19:15)
[2022-05-28] MEDS: EZETIMIBE 10 MG TAB PO SCH (19:15)
[2022-05-28 19:51] LABS: Glucose,Whole Blood 157 mg/dL (70-110)
--- NOTE | 2022-05-28 20:22 | P.PN ---
Subjective This is a pleasant 66 years old female with past medical history of schizophrenia, psychoses Diabetes Mellitus, GERD/Reflux, Hyperlipidemia, Hyperte nsion, Seizure Disorder, hypothyroidism She presents to the hospital with signs and symptoms but she found to have competent infection so she was admitted to the general medical floor was psychiatric consult pt sent via em[facility] from [facility] with petition that states that wants to kill herself. I saw the patient on the medical floor in room 465, start at bedside, patient was angry and shouting and refusing to take her medication stating that she does not want to live. She denies any chest pain or dyspnea. No specific GI or urinary complaints. She has some nasal secretions. She is oriented to time place and person . She is a little bit confused. She has insight into her situation. No diarrhea, no urinary complaints. No fever. Patient refusing oral medication, risks and benefits are explained for her including her high blood pressure, she verbalized understanding and she agrees to give her treatment patch. 05/24/2022 Patient is more calm today. Sitter at bedside. She's taken some of her medication. She is hemodynamically stable. She is complaining from suprapubic discomfort, UA is showed no infection. Bladder scan about 100 mL. She remains on aspirin and Plavix and Norvasc. Repeat labs in the morning 05/25/2022 This morning patient looked little more emotional and paranoid compared to yesterday. I discussed the case with the psychiatric team, they think patient has an unspecified more disorder and cluster B personality disorder. Patient is started on Geodon today. Vitals and labs look stable. pro- Calcitonin is negative. Her competent infection is asymptomatic. Her suprapubic pain has resolved. She denies any other specific physical symptoms or signs 05/26/2022 patient looks, in the morning however during the evening is AGITATED, however she looks improving compared to admission Psychiatric team are following her closely Patient is been treated with Geodon Sitter at bedside Patient denies any other physical complaints, no chest pain or abdominal pain, no coughing or dyspnea, no diarrhea. 05/27/2022 Patient is still getting agitation at times goes by her psychiatric illness, Citrucel at bedside I discussed the case with psychiatry service today Her dose of Geodon is increased from 20 up to 40 mg twice a day and he will keep monitoring 05/28/2022 Patient is more calm after increasing the dose of Geodon 40 mg twice a day. She is less agitated and anxious. She still leaks a lot however she was able to take a bath today with the help of the aide also she ate her meal with no difficulties. Psychiatry follow-up is appreciated and recommended to continue with the same medication. Psychiatry service signed off Patient possibly will go to ECF upon discharge per request over legal guardian per staff. However as per ECF patient needs to be off sitter at bedside for 48 hours. Sitter was discontinued today Objective - Vital Signs Vital signs: Vital Signs Temp 98.2 F 05/28/22 08:00 Pulse 90 05/28/22 08:00 Resp 16 05/28/22 08:00 BP 130/81 05/28/22 08:00 Pulse Ox 98 05/28/22 08:00 FiO2 Intake & Output 05/27/22 05/28/22 05/28/22 18:59 06:59 18:59 Intake Total 222 Balance 222 Weight 77.111 kg Intake: Oral 222 Other: Voiding Method Toilet Toilet # Voids 1 - Exam -GENERAL: The patient is awake alert and more, today, not in any acute distress. Well developed, well nourished. HEENT: Pupils are round and equally reacting to light. EOMI. No scleral icterus. No conjunctival pallor. Normocephalic, atraumatic. No pharyngeal erythema. No thyromegaly. CARDIOVASCULAR: S1 and S2 present. No murmurs, rubs, or gallops. PULMONARY: Chest is clear to auscultation, no wheezing or crackles. ABDOMEN: Soft, nontender, nondistended, normoactive bowel sounds. No palpable organomegaly. MUSCULOSKELETAL: No joint swelling or deformity. EXTREMITIES: No cyanosis, clubbing, or pedal edema. NEUROLOGICAL: Gross neurological examination did not reveal any focal deficits. SKIN: No rashes. no petechiae. - Labs CBC & Chem 7: 05/25/22 05:03 05/25/22 05:03 Labs: Abnormal Lab Results - Last 24 Hours (Table) 05/27/22 05/27/22 05/28/22 Range/Units 17:06 21:16 07:24 POC Glucose (mg/dL) 160 H 180 H 127 H (70-110) mg/dL 05/28/22 Range/Units 12:07 POC Glucose (mg/dL) 217 H (70-110) mg/dL Assessment and Plan Assessment: unspecified more disorder and cluster B personality disorder Suprapubic pain and discomfort, resolved History of Schizophrenia psychosis Noncompliance, as patient refusing her medication, improved Covid infection without pneumoniar hypoxia Diabetes mellitus Hyperlipidemia Hypertension History of seizure disorder Hypothyroidism Plan: This is a pleasant 66 years old female with schizophrenia, psychosis and suicidal ideation however she has competent infection Discontinue seitter at bedside Psychiatric consult is appreciated, patient was started on Geodon, nose at 40 mg daily. Psychiatric service signed off Pending placement Continue with vitamin C, vitamin D and zinc Labs and medication were reviewed.. Continue same treatment. Continue with symptomatic treatment. Resume home medication. Monitor lytes and vitals. DVT and GI prophylaxis. Further recommendations as per clinical course of the patient DVT prophylaxis: Subcutaneous heparin GI Prophylaxis: Ppi
[2022-05-28 21:25] LABS: Glucose,Whole Blood 164 mg/dL (70-110)
[2022-05-29] MEDS: LEVOTHYROXINE 75 MCG TAB PO SCH (05:42)
[2022-05-29 06:56] LABS: Glucose,Whole Blood 172 mg/dL (70-110)
[2022-05-29] MEDS: CLOPIDOGREL 75 MG TAB PO SCH (07:42)
[2022-05-29] MEDS: INSULIN ASPART (NovoLOG) 100 UNIT/ML VIAL SQ SCH ×4 (07:42→20:54)
[2022-05-29] MEDS: METOPROLOL SUCCINATE (ER) 25 MG TAB.ER.24H PO SCH (07:42)
[2022-05-29] MEDS: LOSARTAN 50 MG TAB PO SCH (07:42)
[2022-05-29] MEDS: HEPARIN SODIUM,PORCINE/PF 5,000 UNIT/0.5 ML SYRINGE SQ SCH ×2 (07:42→20:34)
[2022-05-29] MEDS: NICOTINE 7MG/24HR PATCH TRANSDERM SCH ×2 (07:42→07:46)
[2022-05-29] MEDS: ASPIRIN 81 MG PO SCH (07:42)
[2022-05-29] MEDS: ZINC SULFATE 220 MG CAP PO SCH (07:43)
[2022-05-29] MEDS: LORATADINE 10 MG TAB PO SCH (07:43)
[2022-05-29] MEDS: ZIPRASIDONE 40 MG CAP PO SCH ×2 (07:43→20:34)
[2022-05-29] MEDS: CHOLECALCIFEROL 125 MCG (5000 IU) TABLET PO SCH (07:43)
[2022-05-29] MEDS: PANTOPRAZOLE 40 MG TABLET PO SCH (07:43)
[2022-05-29] MEDS: amLODIPine 10 MG TAB PO SCH (07:43)
[2022-05-29] MEDS: ASCORBIC ACID 500 MG TAB PO SCH (07:43)
[2022-05-29] MEDS: hydrALAZINE HCL 25 MG TAB PO SCH ×3 (07:43→23:43)
[2022-05-29 10:19] LABS: Glucose,Whole Blood 144 mg/dL (70-110)
[2022-05-29 11:37] LABS: Glucose,Whole Blood 156 mg/dL (70-110)
[2022-05-29 16:03] LABS: Glucose,Whole Blood 186 mg/dL (70-110)
[2022-05-29] MEDS: ACETAMINOPHEN TAB 325 MG TAB PO PRN (18:56)
--- NOTE | 2022-05-29 19:15 | P.PN ---
Subjective This is a pleasant 66 years old female with past medical history of schizophrenia, psychoses Diabetes Mellitus, GERD/Reflux, Hyperlipidemia, Hyperte nsion, Seizure Disorder, hypothyroidism She presents to the hospital with signs and symptoms but she found to have competent infection so she was admitted to the general medical floor was psychiatric consult pt [facility] with petition that states that wants to kill herself. I saw the patient on the medical floor in room 465, start at bedside, patient was angry and shouting and refusing to take her medication stating that she does not want to live. She denies any chest pain or dyspnea. No specific GI or urinary complaints. She has some nasal secretions. She is oriented to time place and person . She is a little bit confused. She has insight into her situation. No diarrhea, no urinary complaints. No fever. Patient refusing oral medication, risks and benefits are explained for her including her high blood pressure, she verbalized understanding and she agrees to give her treatment patch. 05/24/2022 Patient is more calm today. Sitter at bedside. She's taken some of her medication. She is hemodynamically stable. She is complaining from suprapubic discomfort, UA is showed no infection. Bladder scan about 100 mL. She remains on aspirin and Plavix and Norvasc. Repeat labs in the morning 05/25/2022 This morning patient looked little more emotional and paranoid compared to yesterday. I discussed the case with the psychiatric team, they think patient has an unspecified more disorder and cluster B personality disorder. Patient is started on Geodon today. Vitals and labs look stable. pro- Calcitonin is negative. Her competent infection is asymptomatic. Her suprapubic pain has resolved. She denies any other specific physical symptoms or signs 05/26/2022 patient looks, in the morning however during the evening is AGITATED, however she looks improving compared to admission Psychiatric team are following her closely Patient is been treated with Geodon Sitter at bedside Patient denies any other physical complaints, no chest pain or abdominal pain, no coughing or dyspnea, no diarrhea. 05/27/2022 Patient is still getting agitation at times goes by her psychiatric illness, Citrucel at bedside I discussed the case with psychiatry service today Her dose of Geodon is increased from 20 up to 40 mg twice a day and he will keep monitoring 05/28/2022 Patient is more calm after increasing the dose of Geodon 40 mg twice a day. She is less agitated and anxious. She still leaks a lot however she was able to take a bath today with the help of the aide also she ate her meal with no difficulties. Psychiatry follow-up is appreciated and recommended to continue with the same medication. Psychiatry service signed off Patient possibly will go to [facility] upon discharge per request over legal guardian per staff. However as per [facility] patient needs to be off sitter at bedside for 48 hours. Sitter was discontinued today 05/29/2022 Patient looks more stable after Geodon dose was increased to 40 mg twice daily. Psychiatry already signed off. This morning patient was seen walking in the hallway and approaching the nurses desk and talking to staff, she does not look in distress she does not have any other physical complaints. Sitter has been discontinued Patient since ambulating well, she may not need rehab. I discussed with social work Todd today and looks like family and legal guardian want her to go home with them but they request discharged to be delightful tomorrow so they can have the arrangements For her accommodation. Possible discharge in 24-48 hours Objective - Vital Signs Vital signs: Vital Signs Temp 97.6 F 05/29/22 08:22 Pulse 98 05/29/22 08:22 Resp 16 05/29/22 08:22 BP 137/86 05/29/22 08:22 Pulse Ox 99 05/29/22 08:22 FiO2 Intake & Output 05/28/22 05/29/22 05/29/22 18:59 06:59 18:59 Weight 77.111 kg Other: # Voids 6 6 - Exam -GENERAL: The patient is awake alert and more, today, not in any acute distress. Well developed, well nourished. HEENT: Pupils are round and equally reacting to light. EOMI. No scleral icterus. No conjunctival pallor. Normocephalic, atraumatic. No pharyngeal erythema. No thyromegaly. CARDIOVASCULAR: S1 and S2 present. No murmurs, rubs, or gallops. PULMONARY: Chest is clear to auscultation, no wheezing or crackles. ABDOMEN: Soft, nontender, nondistended, normoactive bowel sounds. No palpable organomegaly. MUSCULOSKELETAL: No joint swelling or deformity. EXTREMITIES: No cyanosis, clubbing, or pedal edema. NEUROLOGICAL: Gross neurological examination did not reveal any focal deficits. SKIN: No rashes. no petechiae. - Labs CBC & Chem 7: 05/25/22 05:03 05/25/22 05:03 Labs: Abnormal Lab Results - Last 24 Hours (Table) 05/28/22 05/28/22 05/28/22 Range/Units 16:46 19:48 21:24 POC Glucose (mg/dL) 121 H 157 H 164 H (70-110) mg/dL 05/29/22 05/29/22 05/29/22 Range/Units 06:52 10:17 11:36 POC Glucose (mg/dL) 172 H 144 H 156 H (70-110) mg/dL Assessment and Plan Assessment: unspecified more disorder and cluster B personality disorder Suprapubic pain and discomfort, resolved History of Schizophrenia psychosis Noncompliance, as patient refusing her medication, improved Covid infection without pneumoniar hypoxia Diabetes mellitus Hyperlipidemia Hypertension History of seizure disorder Hypothyroidism Plan: This is a pleasant 66 years old female with schizophrenia, psychosis and suicidal ideation however she has competent infection Discontinue seitter at bedside Psychiatric consult is appreciated, patient was started on Geodon, nose at 40 mg daily. Psychiatric service signed off No need for placement. Plan to go home with legal guardian and family as per outreach and education social worker Continue with vitamin C, vitamin D and zinc Labs and medication were reviewed.. Continue same treatment. Continue with symptomatic treatment. Resume home medication. Monitor lytes and vitals. DVT and GI prophylaxis. Further recommendations as per clinical course of the patient DVT prophylaxis: Subcutaneous heparin GI Prophylaxis: Ppi
[2022-05-29] MEDS: MELATONIN 5 MG TABLET PO SCH (20:34)
[2022-05-29] MEDS: EZETIMIBE 10 MG TAB PO SCH (20:34)
[2022-05-29 20:45] LABS: Glucose,Whole Blood 118 mg/dL (70-110)
[2022-05-30] MEDS: LEVOTHYROXINE 75 MCG TAB PO SCH (05:20)
[2022-05-30 06:50] LABS: Glucose,Whole Blood 131 mg/dL (70-110)
[2022-05-30] MEDS: INSULIN ASPART (NovoLOG) 100 UNIT/ML VIAL SQ SCH ×4 (07:51→20:25)
[2022-05-30] MEDS: CLOPIDOGREL 75 MG TAB PO SCH (08:26)
[2022-05-30] MEDS: hydrALAZINE HCL 25 MG TAB PO SCH ×3 (08:26→23:17)
[2022-05-30] MEDS: PANTOPRAZOLE 40 MG TABLET PO SCH (08:26)
[2022-05-30] MEDS: LORATADINE 10 MG TAB PO SCH (08:26)
[2022-05-30] MEDS: ASPIRIN 81 MG PO SCH (08:26)
[2022-05-30] MEDS: amLODIPine 10 MG TAB PO SCH (08:26)
[2022-05-30] MEDS: ASCORBIC ACID 500 MG TAB PO SCH (08:26)
[2022-05-30] MEDS: LOSARTAN 50 MG TAB PO SCH (08:26)
[2022-05-30] MEDS: ZINC SULFATE 220 MG CAP PO SCH (08:26)
[2022-05-30] MEDS: CHOLECALCIFEROL 125 MCG (5000 IU) TABLET PO SCH (08:27)
[2022-05-30] MEDS: HEPARIN SODIUM,PORCINE/PF 5,000 UNIT/0.5 ML SYRINGE SQ SCH ×2 (08:27→20:25)
[2022-05-30] MEDS: METOPROLOL SUCCINATE (ER) 25 MG TAB.ER.24H PO SCH (08:27)
[2022-05-30] MEDS: ZIPRASIDONE 40 MG CAP PO SCH ×2 (08:29→20:25)
[2022-05-30] MEDS: NICOTINE 7MG/24HR PATCH TRANSDERM SCH (08:31)
[2022-05-30] MEDS: cloNIDine 0.2 MG/24HR PATCH TRANSDERM SCH (08:31)
[2022-05-30 11:32] LABS: Glucose,Whole Blood 130 mg/dL (70-110)
[2022-05-30 16:47] LABS: Glucose,Whole Blood 184 mg/dL (70-110)
--- NOTE | 2022-05-30 18:17 | P.PN ---
Subjective This is a pleasant 66 years old female with past medical history of schizophrenia, psychoses Diabetes Mellitus, GERD/Reflux, Hyperlipidemia, Hyperte nsion, Seizure Disorder, hypothyroidism She presents to the hospital with signs and symptoms but she found to have competent infection so she was admitted to the general medical floor was psychiatric consult pt sent via em[facility] from [facility] with petition that states that wants to kill herself. I saw the patient on the medical floor in room 465, start at bedside, patient was angry and shouting and refusing to take her medication stating that she does not want to live. She denies any chest pain or dyspnea. No specific GI or urinary complaints. She has some nasal secretions. She is oriented to time place and person . She is a little bit confused. She has insight into her situation. No diarrhea, no urinary complaints. No fever. Patient refusing oral medication, risks and benefits are explained for her including her high blood pressure, she verbalized understanding and she agrees to give her treatment patch. 05/24/2022 Patient is more calm today. Sitter at bedside. She's taken some of her medication. She is hemodynamically stable. She is complaining from suprapubic discomfort, UA is showed no infection. Bladder scan about 100 mL. She remains on aspirin and Plavix and Norvasc. Repeat labs in the morning 05/25/2022 This morning patient looked little more emotional and paranoid compared to yesterday. I discussed the case with the psychiatric team, they think patient has an unspecified more disorder and cluster B personality disorder. Patient is started on Geodon today. Vitals and labs look stable. pro- Calcitonin is negative. Her competent infection is asymptomatic. Her suprapubic pain has resolved. She denies any other specific physical symptoms or signs 05/26/2022 patient looks, in the morning however during the evening is AGITATED, however she looks improving compared to admission Psychiatric team are following her closely Patient is been treated with Geodon Sitter at bedside Patient denies any other physical complaints, no chest pain or abdominal pain, no coughing or dyspnea, no diarrhea. 05/27/2022 Patient is still getting agitation at times goes by her psychiatric illness, Citrucel at bedside I discussed the case with psychiatry service today Her dose of Geodon is increased from 20 up to 40 mg twice a day and he will keep monitoring 05/28/2022 Patient is more calm after increasing the dose of Geodon 40 mg twice a day. She is less agitated and anxious. She still leaks a lot however she was able to take a bath today with the help of the aide also she ate her meal with no difficulties. Psychiatry follow-up is appreciated and recommended to continue with the same medication. Psychiatry service signed off Patient possibly will go to [facility]CF upon discharge per request over legal guardian per staff. However as per ECF patient needs to be off sitter at bedside for 48 hours. Sitter was discontinued today 05/29/2022 Patient looks more stable after Geodon dose was increased to 40 mg twice daily. Psychiatry already signed off. This morning patient was seen walking in the hallway and approaching the nurses desk and talking to staff, she does not look in distress she does not have any other physical complaints. Sitter has been discontinued Patient since ambulating well, she may not need rehab. I discussed with social work Todd today and looks like family and legal guardian want her to go home with them but they request discharged to be delightful tomorrow so they can have the arrangements For her accommodation. Possible discharge in 24-48 hours 05/30/2022 Patient is more calm, however she still showing some mild symptoms of psychosis like paranoia at times but is mild and controlled. Patient is currently kept on Geodon at 40 mg twice daily per psychiatric service was sent off. Patient denies any other physical complaints and vitals are stable Patient is medically stable pending placement. Her legal guardian and family member did not show up today, family stated they will pick her up tomorrow per staff Objective - Vital Signs Vital signs: Vital Signs Temp 98.3 F 05/30/22 08:00 Pulse 109 H 05/30/22 08:00 Resp 18 05/30/22 08:00 BP 132/76 05/30/22 08:00 Pulse Ox 98 05/30/22 08:00 FiO2 Intake & Output 05/29/22 05/30/22 05/30/22 18:59 06:59 18:59 Intake Total 500 Balance 500 Intake: Oral 500 - Exam -GENERAL: The patient is awake alert and more, today, not in any acute distress. Well developed, well nourished. HEENT: Pupils are round and equally reacting to light. EOMI. No scleral icterus. No conjunctival pallor. Normocephalic, atraumatic. No pharyngeal erythema. No thyromegaly. CARDIOVASCULAR: S1 and S2 present. No murmurs, rubs, or gallops. PULMONARY: Chest is clear to auscultation, no wheezing or crackles. ABDOMEN: Soft, nontender, nondistended, normoactive bowel sounds. No palpable organomegaly. MUSCULOSKELETAL: No joint swelling or deformity. EXTREMITIES: No cyanosis, clubbing, or pedal edema. NEUROLOGICAL: Gross neurological examination did not reveal any focal deficits. SKIN: No rashes. no petechiae. - Labs CBC & Chem 7: 05/25/22 05:03 05/25/22 05:03 Labs: Abnormal Lab Results - Last 24 Hours (Table) 05/29/22 05/29/22 05/30/22 Range/Units 16:02 20:43 06:49 POC Glucose (mg/dL) 186 H 118 H 131 H (70-110) mg/dL 05/30/22 Range/Units 11:30 POC Glucose (mg/dL) 130 H (70-110) mg/dL Assessment and Plan Assessment: unspecified more disorder and cluster B personality disorder Suprapubic pain and discomfort, resolved History of Schizophrenia psychosis Noncompliance, as patient refusing her medication, improved Covid infection without pneumoniar hypoxia Diabetes mellitus Hyperlipidemia Hypertension History of seizure disorder Hypothyroidism Plan: This is a pleasant 66 years old female with schizophrenia, psychosis which is im proved now is stable Psychiatric consult is appreciated, patient was started on Geodon, nose at 40 mg daily. Psychiatric service signed off No need for placement to ECF . Plan to go home with legal guardian and family as per social welfare clerk. Possible discharge tomorrow once family pick her up Continue with vitamin C, vitamin D and zinc Labs and medication were reviewed.. Continue same treatment. Continue with symptomatic treatment. Resume home medication. Monitor lytes and vitals. DVT and GI prophylaxis. Further recommendations as per clinical course of the patient DVT prophylaxis: Subcutaneous heparin GI Prophylaxis: Ppi
[2022-05-30 20:01] LABS: Glucose,Whole Blood 163 mg/dL (70-110)
[2022-05-30] MEDS: MELATONIN 5 MG TABLET PO SCH (20:25)
[2022-05-30] MEDS: EZETIMIBE 10 MG TAB PO SCH (20:25)
[2022-05-31] MEDS: LEVOTHYROXINE 75 MCG TAB PO SCH (06:08)
[2022-05-31] MEDS: NICOTINE 7MG/24HR PATCH TRANSDERM SCH (08:43)
[2022-05-31] MEDS: INSULIN ASPART (NovoLOG) 100 UNIT/ML VIAL SQ SCH ×4 (08:43→19:48)
[2022-05-31] MEDS: hydrALAZINE HCL 25 MG TAB PO SCH ×3 (08:55→23:03)
[2022-05-31] MEDS: PANTOPRAZOLE 40 MG TABLET PO SCH (08:55)
[2022-05-31] MEDS: LORATADINE 10 MG TAB PO SCH (08:55)
[2022-05-31] MEDS: METOPROLOL SUCCINATE (ER) 25 MG TAB.ER.24H PO SCH (08:55)
[2022-05-31] MEDS: HEPARIN SODIUM,PORCINE/PF 5,000 UNIT/0.5 ML SYRINGE SQ SCH ×2 (08:56→19:51)
[2022-05-31] MEDS: amLODIPine 10 MG TAB PO SCH (08:56)
[2022-05-31] MEDS: LOSARTAN 50 MG TAB PO SCH (08:56)
[2022-05-31] MEDS: ASPIRIN 81 MG PO SCH (08:56)
[2022-05-31] MEDS: ZINC SULFATE 220 MG CAP PO SCH (08:56)
[2022-05-31] MEDS: CLOPIDOGREL 75 MG TAB PO SCH (08:56)
[2022-05-31] MEDS: CHOLECALCIFEROL 125 MCG (5000 IU) TABLET PO SCH (08:56)
[2022-05-31] MEDS: ASCORBIC ACID 500 MG TAB PO SCH (08:56)
[2022-05-31] MEDS: ZIPRASIDONE 40 MG CAP PO SCH ×2 (08:57→19:51)
[2022-05-31] MEDS: ACETAMINOPHEN TAB 325 MG TAB PO PRN (10:15)
[2022-05-31 11:33] LABS: Glucose,Whole Blood 189 mg/dL (70-110)
[2022-05-31 16:42] LABS: Glucose,Whole Blood 148 mg/dL (70-110)
[2022-05-31 19:47] LABS: Glucose,Whole Blood 116 mg/dL (70-110)
[2022-05-31] MEDS: MELATONIN 5 MG TABLET PO SCH (19:50)
[2022-05-31] MEDS: EZETIMIBE 10 MG TAB PO SCH (19:50)
--- NOTE | 2022-05-31 22:30 | P.PN ---
Subjective This is a pleasant 66 years old female with past medical history of schizophrenia, psychoses Diabetes Mellitus, GERD/Reflux, Hyperlipidemia, Hyperte nsion, Seizure Disorder, hypothyroidism She presents to the hospital with signs and symptoms but she found to have competent infection so she was admitted to the general medical floor was psychiatric consult pt sent via ems from custodial with petition that states that wants to kill herself. I saw the patient on the medical floor in room 465, start at bedside, patient was angry and shouting and refusing to take her medication stating that she does not want to live. She denies any chest pain or dyspnea. No specific GI or urinary complaints. She has some nasal secretions. She is oriented to time place and person . She is a little bit confused. She has insight into her situation. No diarrhea, no urinary complaints. No fever. Patient refusing oral medication, risks and benefits are explained for her including her high blood pressure, she verbalized understanding and she agrees to give her treatment patch. 05/24/2022 Patient is more calm today. Sitter at bedside. She's taken some of her medication. She is hemodynamically stable. She is complaining from suprapubic discomfort, UA is showed no infection. Bladder scan about 100 mL. She remains on aspirin and Plavix and Norvasc. Repeat labs in the morning 05/25/2022 This morning patient looked little more emotional and paranoid compared to yesterday. I discussed the case with the psychiatric team, they think patient has an unspecified more disorder and cluster B personality disorder. Patient is started on Geodon today. Vitals and labs look stable. pro- Calcitonin is negative. Her competent infection is asymptomatic. Her suprapubic pain has resolved. She denies any other specific physical symptoms or signs 05/26/2022 patient looks, in the morning however during the evening is AGITATED, however she looks improving compared to admission Psychiatric team are following her closely Patient is been treated with Geodon Sitter at bedside Patient denies any other physical complaints, no chest pain or abdominal pain, no coughing or dyspnea, no diarrhea. 05/27/2022 Patient is still getting agitation at times goes by her psychiatric illness, Citrucel at bedside I discussed the case with psychiatry service today Her dose of Geodon is increased from 20 up to 40 mg twice a day and he will keep monitoring 05/28/2022 Patient is more calm after increasing the dose of Geodon 40 mg twice a day. She is less agitated and anxious. She still leaks a lot however she was able to take a bath today with the help of the aide also she ate her meal with no difficulties. Psychiatry follow-up is appreciated and recommended to continue with the same medication. Psychiatry service signed off Patient possibly will go to [facility] upon discharge per request over legal guardian per staff. However as per ECF patient needs to be off sitter at bedside for 48 hours. Sitter was discontinued today 05/29/2022 Patient looks more stable after Geodon dose was increased to 40 mg twice daily. Psychiatry already signed off. This morning patient was seen walking in the hallway and approaching the nurses desk and talking to staff, she does not look in distress she does not have any other physical complaints. Sitter has been discontinued Patient since ambulating well, she may not need rehab. I discussed with social work Todd today and looks like family and legal guardian want her to go home with them but they request discharged to be delightful tomorrow so they can have the arrangements For her accommodation. Possible discharge in 24-48 hours 05/30/2022 Patient is more calm, however she still showing some mild symptoms of psychosis like paranoia at times but is mild and controlled. Patient is currently kept on Geodon at 40 mg twice daily per psychiatric service was sent off. Patient denies any other physical complaints and vitals are stable Patient is medically stable pending placement. Her legal guardian and family member did not show up today, family stated they will pick her up tomorrow per staff 05/31/2022 Patient awake alert, calm and pleasant she shown some overnight commands but she is very appropriate and calm and follows commands She works in the hallway by herself with no difficulty She wants to go home with her brother Her brother and legal guardian to pick her up, patient is medically stable pen ding placement Objective - Vital Signs Vital signs: Vital Signs Temp 98.0 F 05/31/22 07:50 Pulse 91 05/31/22 07:50 Resp 18 05/31/22 07:50 BP 133/85 05/31/22 07:50 Pulse Ox 100 05/31/22 07:50 FiO2 Intake & Output 05/30/22 05/31/22 05/31/22 18:59 06:59 18:59 Other: Voiding Method Toilet # Voids 3 3 # Bowel Movements 1 - Exam -GENERAL: The patient is awake alert and more, today, not in any acute distress. Well developed, well nourished. HEENT: Pupils are round and equally reacting to light. EOMI. No scleral icterus. No conjunctival pallor. Normocephalic, atraumatic. No pharyngeal erythema. No thyromegaly. CARDIOVASCULAR: S1 and S2 present. No murmurs, rubs, or gallops. PULMONARY: Chest is clear to auscultation, no wheezing or crackles. ABDOMEN: Soft, nontender, nondistended, normoactive bowel sounds. No palpable organomegaly. MUSCULOSKELETAL: No joint swelling or deformity. EXTREMITIES: No cyanosis, clubbing, or pedal edema. NEUROLOGICAL: Gross neurological examination did not reveal any focal deficits. SKIN: No rashes. no petechiae. - Labs CBC & Chem 7: 05/25/22 05:03 05/25/22 05:03 Labs: Abnormal Lab Results - Last 24 Hours (Table) 05/30/22 05/30/22 05/30/22 Range/Units 11:30 16:46 19:58 POC Glucose (mg/dL) 130 H 184 H 163 H (70-110) mg/dL Assessment and Plan Assessment: unspecified more disorder and cluster B personality disorder Suprapubic pain and discomfort, resolved History of Schizophrenia psychosis Noncompliance, as patient refusing her medication, improved Covid infection without pneumoniar hypoxia Diabetes mellitus Hyperlipidemia Hypertension History of seizure disorder Hypothyroidism Plan: This is a pleasant 66 years old female with schizophrenia, psychosis which is improved now is stable Psychiatric consult is appreciated, patient was started on Geodon, nose at 40 mg daily. Psychiatric service signed off No need for placement to ECF . Plan to go home with legal guardian and family as per director of social media marketing. Possible discharge tomorrow once family pick her up Continue with vitamin C, vitamin D and zinc Labs and medication were reviewed.. Continue same treatment. Continue with symptomatic treatment. Resume home medication. Monitor lytes and vitals. DVT and GI prophylaxis. Further recommendations as per clinical course of the patient DVT prophylaxis: Subcutaneous heparin GI Prophylaxis: Ppi
[2022-06-01] MEDS: LEVOTHYROXINE 75 MCG TAB PO SCH (05:46)
[2022-06-01 06:57] LABS: Glucose,Whole Blood 127 mg/dL (70-110)
[2022-06-01] MEDS: INSULIN ASPART (NovoLOG) 100 UNIT/ML VIAL SQ SCH ×4 (07:19→21:25)
[2022-06-01] MEDS: NICOTINE 7MG/24HR PATCH TRANSDERM SCH (08:10)
[2022-06-01] MEDS: LORATADINE 10 MG TAB PO SCH (08:37)
[2022-06-01] MEDS: ASPIRIN 81 MG PO SCH (08:37)
[2022-06-01] MEDS: ASCORBIC ACID 500 MG TAB PO SCH (08:37)
[2022-06-01] MEDS: PANTOPRAZOLE 40 MG TABLET PO SCH (08:37)
[2022-06-01] MEDS: amLODIPine 10 MG TAB PO SCH (08:37)
[2022-06-01] MEDS: CHOLECALCIFEROL 125 MCG (5000 IU) TABLET PO SCH (08:37)
[2022-06-01] MEDS: hydrALAZINE HCL 25 MG TAB PO SCH ×2 (08:37→15:58)
[2022-06-01] MEDS: CLOPIDOGREL 75 MG TAB PO SCH (08:37)
[2022-06-01] MEDS: ZINC SULFATE 220 MG CAP PO SCH (08:37)
[2022-06-01] MEDS: METOPROLOL SUCCINATE (ER) 25 MG TAB.ER.24H PO SCH (08:37)
[2022-06-01] MEDS: LOSARTAN 50 MG TAB PO SCH (08:37)
[2022-06-01] MEDS: HEPARIN SODIUM,PORCINE/PF 5,000 UNIT/0.5 ML SYRINGE SQ SCH ×2 (08:38→21:30)
[2022-06-01] MEDS: ZIPRASIDONE 40 MG CAP PO SCH ×2 (08:41→21:30)
[2022-06-01 11:27] LABS: Glucose,Whole Blood 119 mg/dL (70-110)
--- NOTE | 2022-06-01 16:57 | P.PN ---
Subjective This is a pleasant 66 years old female with past medical history of schizophrenia, psychoses Diabetes Mellitus, GERD/Reflux, Hyperlipidemia, Hyperte nsion, Seizure Disorder, hypothyroidism She presents to the hospital with signs and symptoms but she found to have competent infection so she was admitted to the general medical floor was psychiatric consult pt sent via ems from [facility] with petition that states that wants to kill herself. I saw the patient on the medical floor in room 465, start at bedside, patient was angry and shouting and refusing to take her medication stating that she does not want to live. She denies any chest pain or dyspnea. No specific GI or urinary complaints. She has some nasal secretions. She is oriented to time place and person . She is a little bit confused. She has insight into her situation. No diarrhea, no urinary complaints. No fever. Patient refusing oral medication, risks and benefits are explained for her including her high blood pressure, she verbalized understanding and she agrees to give her treatment patch. 05/24/2022 Patient is more calm today. Sitter at bedside. She's taken some of her medication. She is hemodynamically stable. She is complaining from suprapubic discomfort, UA is showed no infection. Bladder scan about 100 mL. She remains on aspirin and Plavix and Norvasc. Repeat labs in the morning 05/25/2022 This morning patient looked little more emotional and paranoid compared to yesterday. I discussed the case with the psychiatric team, they think patient has an unspecified more disorder and cluster B personality disorder. Patient is started on Geodon today. Vitals and labs look stable. pro- Calcitonin is negative. Her competent infection is asymptomatic. Her suprapubic pain has resolved. She denies any other specific physical symptoms or signs 05/26/2022 patient looks, in the morning however during the evening is AGITATED, however she looks improving compared to admission Psychiatric team are following her closely Patient is been treated with Geodon Sitter at bedside Patient denies any other physical complaints, no chest pain or abdominal pain, no coughing or dyspnea, no diarrhea. 05/27/2022 Patient is still getting agitation at times goes by her psychiatric illness, Citrucel at bedside I discussed the case with psychiatry service today Her dose of Geodon is increased from 20 up to 40 mg twice a day and he will keep monitoring 05/28/2022 Patient is more calm after increasing the dose of Geodon 40 mg twice a day. She is less agitated and anxious. She still leaks a lot however she was able to take a bath today with the help of the aide also she ate her meal with no difficulties. Psychiatry follow-up is appreciated and recommended to continue with the same medication. Psychiatry service signed off Patient possibly will go to [facility] upon discharge per request over legal guardian per staff. However as per ECF patient needs to be off sitter at bedside for 48 hours. Sitter was discontinued today 05/29/2022 Patient looks more stable after Geodon dose was increased to 40 mg twice daily. Psychiatry already signed off. This morning patient was seen walking in the hallway and approaching the nurses desk and talking to staff, she does not look in distress she does not have any other physical complaints. Sitter has been discontinued Patient since ambulating well, she may not need rehab. I discussed with social work Todd today and looks like family and legal guardian want her to go home with them but they request discharged to be delightful tomorrow so they can have the arrangements For her accommodation. Possible discharge in 24-48 hours 05/30/2022 Patient is more calm, however she still showing some mild symptoms of psychosis like paranoia at times but is mild and controlled. Patient is currently kept on Geodon at 40 mg twice daily per psychiatric service was sent off. Patient denies any other physical complaints and vitals are stable Patient is medically stable pending placement. Her legal guardian and family member did not show up today, family stated they will pick her up tomorrow per staff 05/31/2022 Patient awake alert, calm and pleasant she shown some overnight commands but she is very appropriate and calm and follows commands She works in the hallway by herself with no difficulty She wants to go home with her brother Her brother and legal guardian to pick her up, patient is medically stable pen ding placement 06/01/2022 Patient I saw her in the morning she was in her room and in the hallway walking freely, she is calm and make logic conversation although simple ones, she denies any other complaints and she denies any hallucination or delusions and she was very pleasant. She was hoping to go home with her brother. Patient was discharged and prescription provided however when the brother To pick her up she was starting got agitated as per staff, brother declined to take her home at this point and wants her to be placed per bedside nurse. Discharge was cancellation and we will reassess tomorrow with case mgr/community mental health social worker Objective - Vital Signs Vital signs: Vital Signs Temp 97.8 F 06/01/22 02:00 Pulse 101 H 06/01/22 02:00 Resp 16 06/01/22 02:00 BP 126/82 06/01/22 02:00 Pulse Ox 98 06/01/22 02:00 FiO2 Intake & Output 05/31/22 06/01/22 06/01/22 18:59 06:59 18:59 Other: Voiding Method Toilet Diaper # Voids 4 2 - Exam -GENERAL: The patient is awake alert and more, today, not in any acute distress. Well developed, well nourished. HEENT: Pupils are round and equally reacting to light. EOMI. No scleral icterus. No conjunctival pallor. Normocephalic, atraumatic. No pharyngeal erythema. No thyromegaly. CARDIOVASCULAR: S1 and S2 present. No murmurs, rubs, or gallops. PULMONARY: Chest is clear to auscultation, no wheezing or crackles. ABDOMEN: Soft, nontender, nondistended, normoactive bowel sounds. No palpable organomegaly. MUSCULOSKELETAL: No joint swelling or deformity. EXTREMITIES: No cyanosis, clubbing, or pedal edema. NEUROLOGICAL: Gross neurological examination did not reveal any focal deficits. SKIN: No rashes. no petechiae. - Labs CBC & Chem 7: 05/25/22 05:03 05/25/22 05:03 Labs: Abnormal Lab Results - Last 24 Hours (Table) 05/31/22 05/31/22 05/31/22 Range/Units 11:32 16:41 19:46 POC Glucose (mg/dL) 189 H 148 H 116 H (70-110) mg/dL 06/01/22 Range/Units 06:55 POC Glucose (mg/dL) 127 H (70-110) mg/dL Assessment and Plan Assessment: unspecified more disorder and cluster B personality disorder Suprapubic pain and discomfort, resolved History of Schizophrenia psychosis Noncompliance, as patient refusing her medication, improved Covid infection without pneumoniar hypoxia Diabetes mellitus Hyperlipidemia Hypertension History of seizure disorder Hypothyroidism Plan: This is a pleasant 66 years old female with schizophrenia, psychosis which is improved now is stable Psychiatric consult is appreciated, patient was started on Geodon, nose at 40 mg daily. Psychiatric service signed off No need for placement to ECF . Plan to go home with legal guardian and family as per community mental health social worker. Possible discharge tomorrow once family pick her up Continue with vitamin C, vitamin D and zinc Labs and medication were reviewed.. Continue same treatment. Continue with symptomatic treatment. Resume home medication. Monitor lytes and vitals. DVT and GI prophylaxis. Further recommendations as per clinical course of the patient DVT prophylaxis: Subcutaneous heparin GI Prophylaxis: Ppi
[2022-06-01 16:59] LABS: Glucose,Whole Blood 219 mg/dL (70-110)
[2022-06-01] MEDS: MELATONIN 5 MG TABLET PO SCH (19:22)
[2022-06-01] MEDS: EZETIMIBE 10 MG TAB PO SCH (19:22)
[2022-06-01 20:55] LABS: Glucose,Whole Blood 99 mg/dL (70-110)
[2022-06-01] MEDS: ACETAMINOPHEN TAB 325 MG TAB PO PRN (22:01)
[2022-06-02] MEDS: hydrALAZINE HCL 25 MG TAB PO SCH ×4 (00:53→23:50)
[2022-06-02] MEDS: LEVOTHYROXINE 75 MCG TAB PO SCH (06:06)
[2022-06-02 07:03] LABS: Glucose,Whole Blood 211 mg/dL (70-110)
[2022-06-02] MEDS: CLOPIDOGREL 75 MG TAB PO SCH (08:32)
[2022-06-02] MEDS: METOPROLOL SUCCINATE (ER) 25 MG TAB.ER.24H PO SCH (08:32)
[2022-06-02] MEDS: ASCORBIC ACID 500 MG TAB PO SCH (08:33)
[2022-06-02] MEDS: NICOTINE 7MG/24HR PATCH TRANSDERM SCH (08:33)
[2022-06-02] MEDS: amLODIPine 10 MG TAB PO SCH (08:33)
[2022-06-02] MEDS: ZINC SULFATE 220 MG CAP PO SCH (08:33)
[2022-06-02] MEDS: LOSARTAN 50 MG TAB PO SCH (08:33)
[2022-06-02] MEDS: LORATADINE 10 MG TAB PO SCH (08:33)
[2022-06-02] MEDS: CHOLECALCIFEROL 125 MCG (5000 IU) TABLET PO SCH (08:33)
[2022-06-02] MEDS: PANTOPRAZOLE 40 MG TABLET PO SCH (08:33)
[2022-06-02] MEDS: INSULIN ASPART (NovoLOG) 100 UNIT/ML VIAL SQ SCH ×4 (08:34→21:06)
[2022-06-02] MEDS: ASPIRIN 81 MG PO SCH (08:36)
[2022-06-02] MEDS: HEPARIN SODIUM,PORCINE/PF 5,000 UNIT/0.5 ML SYRINGE SQ SCH ×2 (09:48→21:09)
[2022-06-02] MEDS: ZIPRASIDONE 40 MG CAP PO SCH (09:49)
[2022-06-02 11:35] LABS: Glucose,Whole Blood 98 mg/dL (70-110)
--- NOTE | 2022-06-02 14:08 | P.PN ---
Progress Note - Text Progress Note Date: 06/02/22 Interval History: Patient was seen resting in bed and was directable and agreeable to speak with mortgage or loan underwriter in her room. Currently, the patient continues to vehemently deny any suicidal or homicidal ideation, intention, and/or plan. She is not reporting any auditory or visual hallucinations. She is denying any paranoia or other delusions. The patient does express a desire for ice cream and also appears to be at times inconsistent with what she wants. She'll often ask for something then later states that is not what she wanted and then confirm that that is what she wanted. She is alert and oriented in all spheres. She has been adherent with her medications but expresses a desire to not be on them. Collateral information was obtained by the patient's niece Carlos Manuel who reports that when she saw the patient she was surprised to see she was on geodon and was concerned that her aunt was overly sedated and had difficulty walking. She was informed that staff have noted that the patient is able to ambulate well. Vitals and labs appear stable. Patient's niece is requesting that geodon be decreased out of concern for over-sedation. She expresses that she did not feel that her aunt would be safe at home if continued on medication that would be too sedating and impairing the patient's ability to walk. She was informed that we saw behavioral benefit with the geodon however she remained adamant that she does not require this medication. She was agreeable to a decrease in the dose. Mental Status Exam: General Appearance: Patient appears to be stated age is alert, directable, and cooperative. Behavior: Patient is calmly eating ice cream without any agitated behavior. Speech: Patient's speech is fluent and nonpressured. Mood/Affect: Mood is "I'm doing okay." Affect appears to be expansive. Suicidality/Homicidality: Patient denies having any suicidal or homicidal ideation intent or plan. Perceptions: Patient denies any visual hallucinations and denies any auditory hallucinations Though content/process: There is no evidence of any delusional thought content and thought process is linear and goal-directed. Memory and concentration: AOX3, grossly intact for the purposes of this session Judgment and insight: Improving mildly Vital Signs Temp 98 F 06/02/22 09:37 Pulse 85 06/02/22 09:37 Resp 18 07/05/22 09:37 BP 127/85 06/02/22 09:37 Pulse Ox 98 06/02/22 00:50 FiO2 Intake & Output 06/01/22 06/02/22 06/02/22 18:59 06:59 18:59 Other: Voiding Method Toilet Diaper # Voids 2 2 Laboratory Results - Last 24 Hours 06/01/22 06/01/22 06/02/22 16:57 20:54 07:01 POC Glucose (mg/dL) 219 H 99 211 H POC Glu Relief Pharmacist Kathy Edwards Allison Laritz, Joanne 06/02/22 11:30 POC Glucose (mg/dL) 98 POC Glu Relief Pharmacist Kathy Edwards Assessment Unspecified mood disorder Cluster B personality disorder Plan: -At this time patient DOES NOT meet criteria for inpatient psychiatric admission. The patient is not presenting with any acute psychotic symptoms, suicidal ideation, homicidal ideation, and appears to be directable. She has been adherent with her medications. -Delirium precautions recommended with patient including - avoiding use of narcotics and [employer]ISH [employer] sedatives, limit anticholinergic medications when possible, frequent re-orientation, minimize use of restraints, open window shades during the day and close them at night -Would recommend the following medication changes/additions: Taper Geodon to 20 mg by mouth twice a day to address irritability and episodes of agitation. -Patient is cleared psychiatrically for discharge with recommendation for outpatient follow-up. However, psychiatry will continue to follow if the patient will continue to be admitted to assess for response and tolerance of the Geodon.
[2022-06-02 16:30] LABS: Glucose,Whole Blood 171 mg/dL (70-110)
--- NOTE | 2022-06-02 18:35 | P.PN ---
Subjective This is a pleasant 66 years old female with past medical history of schizophrenia, psychoses Diabetes Mellitus, GERD/Reflux, Hyperlipidemia, Hyperte nsion, Seizure Disorder, hypothyroidism She presents to the hospital with signs and symptoms but she found to have competent infection so she was admitted to the general medical floor was psychiatric consult pt sent via ems from assisted with petition that states that wants to kill herself. I saw the patient on the medical floor in room 465, start at bedside, patient was angry and shouting and refusing to take her medication stating that she does not want to live. She denies any chest pain or dyspnea. No specific GI or urinary complaints. She has some nasal secretions. She is oriented to time place and person . She is a little bit confused. She has insight into her situation. No diarrhea, no urinary complaints. No fever. Patient refusing oral medication, risks and benefits are explained for her including her high blood pressure, she verbalized understanding and she agrees to give her treatment patch. 05/24/2022 Patient is more calm today. Sitter at bedside. She's taken some of her medication. She is hemodynamically stable. She is complaining from suprapubic discomfort, UA is showed no infection. Bladder scan about 100 mL. She remains on aspirin and Plavix and Norvasc. Repeat labs in the morning 05/25/2022 This morning patient looked little more emotional and paranoid compared to yesterday. I discussed the case with the psychiatric team, they think patient has an unspecified more disorder and cluster B personality disorder. Patient is started on Geodon today. Vitals and labs look stable. pro- Calcitonin is negative. Her competent infection is asymptomatic. Her suprapubic pain has resolved. She denies any other specific physical symptoms or signs 05/26/2022 patient looks, in the morning however during the evening is AGITATED, however she looks improving compared to admission Psychiatric team are following her closely Patient is been treated with Geodon Sitter at bedside Patient denies any other physical complaints, no chest pain or abdominal pain, no coughing or dyspnea, no diarrhea. 05/27/2022 Patient is still getting agitation at times goes by her psychiatric illness, Citrucel at bedside I discussed the case with psychiatry service today Her dose of Geodon is increased from 20 up to 40 mg twice a day and he will keep monitoring 05/28/2022 Patient is more calm after increasing the dose of Geodon 40 mg twice a day. She is less agitated and anxious. She still leaks a lot however she was able to take a bath today with the help of the aide also she ate her meal with no difficulties. Psychiatry follow-up is appreciated and recommended to continue with the same medication. Psychiatry service signed off Patient possibly will go to [facility] upon discharge per request over legal guardian per staff. However as per [facility] patient needs to be off sitter at bedside for 48 hours. Sitter was discontinued today 05/29/2022 Patient looks more stable after Geodon dose was increased to 40 mg twice daily. Psychiatry already signed off. This morning patient was seen walking in the hallway and approaching the nurses desk and talking to staff, she does not look in distress she does not have any other physical complaints. Sitter has been discontinued Patient since ambulating well, she may not need rehab. I discussed with social work Todd today and looks like family and legal guardian want her to go home with them but they request discharged to be delightful tomorrow so they can have the arrangements For her accommodation. Possible discharge in 24-48 hours 05/30/2022 Patient is more calm, however she still showing some mild symptoms of psychosis like paranoia at times but is mild and controlled. Patient is currently kept on Geodon at 40 mg twice daily per psychiatric service was sent off. Patient denies any other physical complaints and vitals are stable Patient is medically stable pending placement. Her legal guardian and family member did not show up today, family stated they will pick her up tomorrow per staff 05/31/2022 Patient awake alert, calm and pleasant she shown some overnight commands but she is very appropriate and calm and follows commands She works in the hallway by herself with no difficulty She wants to go home with her brother Her brother and legal guardian to pick her up, patient is medically stable pen ding placement 06/01/2022 Patient I saw her in the morning she was in her room and in the hallway walking freely, she is calm and make logic conversation although simple ones, she denies any other complaints and she denies any hallucination or delusions and she was very pleasant. She was hoping to go home with her brother. Patient was discharged and prescription provided however when the brother To pick her up she was starting got agitated as per staff, brother declined to take her home at this point and wants her to be placed per bedside nurse. Discharge was cancellation and we will reassess tomorrow with pillowcase maker/health social work professor 06/02/2022 Patient look calm when I saw her today during morning rounds, she was appropriate, she has a total of pressured speech but she follows Katelynn and she takes medication. Hemodynamically stable. She is on room air. She denies any specific symptoms, they urinary complaints shouted yesterday have resolved no more dysuria or regurgitation while voiding. Discussed with the psychiatry for follow-up recommended to decrease Geodon to 20 mg twice daily. mental health worker of the place for placement Plan of treatment discussed with the patient herself and she is agreeable for placement, she is aware her brother is not going to take her home and he r ecommended placement per staff Objective - Vital Signs Vital signs: Vital Signs Temp 98 F 06/02/22 14:24 Pulse 98 06/02/22 14:24 Resp 18 06/02/22 14:24 BP 127/85 06/02/22 14:24 Pulse Ox 98 06/02/22 14:00 FiO2 Intake & Output 06/01/22 06/02/22 06/02/22 18:59 06:59 18:59 Intake Total 518 Balance 518 Intake: Oral 518 Other: Voiding Method Toilet Toilet Diaper Bedside Commode Diaper # Voids 2 2 1 - Exam -GENERAL: The patient is awake alert and more, today, not in any acute distress. Well developed, well nourished. HEENT: Pupils are round and equally reacting to light. EOMI. No scleral icterus. No conjunctival pallor. Normocephalic, atraumatic. No pharyngeal erythema. No thyromegaly. CARDIOVASCULAR: S1 and S2 present. No murmurs, rubs, or gallops. PULMONARY: Chest is clear to auscultation, no wheezing or crackles. ABDOMEN: Soft, nontender, nondistended, normoactive bowel sounds. No palpable o rganomegaly. MUSCULOSKELETAL: No joint swelling or deformity. EXTREMITIES: No cyanosis, clubbing, or pedal edema. NEUROLOGICAL: Gross neurological examination did not reveal any focal deficits. SKIN: No rashes. no petechiae. - Labs CBC & Chem 7: 05/25/22 05:03 05/25/22 05:03 Labs: Abnormal Lab Results - Last 24 Hours (Table) 06/02/22 06/02/22 Range/Units 07:01 16:29 POC Glucose (mg/dL) 211 H 171 H (70-110) mg/dL Assessment and Plan Assessment: unspecified more disorder and cluster B personality disorder Suprapubic pain and discomfort, resolved History of Schizophrenia psychosis Noncompliance, as patient refusing her medication, improved Covid infection without pneumoniar hypoxia Diabetes mellitus Hyperlipidemia Hypertension History of seizure disorder Hypothyroidism Plan: This is a pleasant 66 years old female with schizophrenia, psychosis which is improved now is stable Psychiatric consult is appreciated, patient was started on Geodon, nose at 20 mg twice a day. Psychiatric service signed off pending placement, health social work professor of the case. Legal guardian involved in the case and upon his recommendation Continue with vitamin C, vitamin D and zinc Labs and medication were reviewed.. Continue same treatment. Continue with symptomatic treatment. Resume home medication. Monitor lytes and vitals. DVT and GI prophylaxis. Further recommendations as per clinical course of the patient DVT prophylaxis: Subcutaneous heparin GI Prophylaxis: Ppi
[2022-06-02 20:52] LABS: Glucose,Whole Blood 128 mg/dL (70-110)
[2022-06-02] MEDS ORDERED: ZIPRASIDONE 40 MG CAP PO SCH ×2 (21:00)
[2022-06-02] MEDS: EZETIMIBE 10 MG TAB PO SCH (21:07)
[2022-06-02] MEDS: MELATONIN 5 MG TABLET PO SCH (21:08)
[2022-06-02] MEDS: ZIPRASIDONE 20 MG CAP PO SCH (21:15)
[2022-06-02] MEDS: ACETAMINOPHEN TAB 325 MG TAB PO PRN (23:23)
[2022-06-03 02:13] VITALS: TEMP 97.5
[2022-06-03] MEDS: LEVOTHYROXINE 75 MCG TAB PO SCH (08:39)
[2022-06-03] MEDS: INSULIN ASPART (NovoLOG) 100 UNIT/ML VIAL SQ SCH ×2 (08:39→13:19)
--- NOTE | 2022-06-03 09:36 | P.DS ---
Providers Date of admission: 05/22/22 21:35 Attending physician: Mahi Turner Consults: 05/22/22 21:35 Consult Physician Urgent Consulting Provider: Fabio Robledo Consult Reason/Comments: Acute psychosis Do you want consulting provider notified?: Yes 05/25/22 07:40 Consult Physician Urgent Consulting Provider: Fabio Robledo Consult Reason/Comments: jodee like s/s , pt does not want to live Do you want consulting provider notified?: Yes 06/01/22 18:24 Consult Physician Routine Consulting Provider: Fabio Robledo Consult Reason/Comments: reeval for michael psych Do you want consulting provider notified?: Yes, Notify in am Primary care physician: Stated None Hospital Course: Diagnoses: unspecified more disorder and cluster B personality disorder Suprapubic pain and discomfort, resolved History of Schizophrenia psychosis Noncompliance, as patient refusing her medication, improved Covid infection without pneumoniar hypoxia Diabetes mellitus Hyperlipidemia Hypertension History of seizure disorder Hypothyroidism Hospital course: This is a pleasant 66 years old female with past medical history of schizophrenia, psychoses Diabetes Mellitus, GERD/Reflux, Hyperlipidemia, Hypertension, Seizure Disorder, hypothyroidism She presents to the hospital with mental signs and symptoms but she found to have covid infection so she was admitted to the general medical floor with psychiatric consult, there was concern about suicidal thoughts however this has been ruled out by psychiatrist. She was found to have (unspecified mood disorder) by psychiatrist on the top of her (cluster B personality disorder) and she was started on Geodon with improvement in her symptoms. Yesterday patient developed by psychiatrist and he lowered dose of Geodon 40 down to 20 mg twice a day. Patient keeps doing well. Covid infection is a stable with no pneumonia, no respiratory symptoms. She is on room air. She denies any other symptoms, no chest pain or dyspnea. No change in urine or bowel habits. No abdominal pain. No fever. Patient was cleared for discharge by psychiatrist. Her brother who is a legal guardian want her to be placed today I called the brother who is legal guardian at [phone] and a message to call back. Problems and management plan were discussed with the patient and he verbalized understanding and acceptance Patient was found stable and can be discharged to a placement home in [facility] however he needs follow-up as an outpatient. Patient was instructed to follow up with PCP within one week and patient agrees Patient was instructed to follow up with [facility] psychiatrist in 1-2 weeks after discharge Physical exam Gen: patient is a AAOx3, no distress CVS: S1-S2, RRR, no murmur Lungs: B/L CTA, no wheezing Abdomen: soft, no distention, no tenderness, positive bowel sounds Extremity: no leg edema or induration Time spent more than 35 minutes Plan - Discharge Summary New Discharge Prescriptions: New Ziprasidone [Geodon] 40 mg PO BID #60 cap Continue Losartan [Cozaar] 50 mg PO DAILY@0800 #30 tab Aspirin EC [Ecotrin Low Dose] 81 mg PO DAILY@0800 #30 tab Nicotine 7Mg/24Hr Patch [Habitrol] 1 patch TRANSDERM DAILY@0800 #14 patch INSULIN LISPRO (HumaLOG) [humaLOG] See Protocol SQ ACHS #10 ml hydrALAZINE HCL 25 mg PO TID@0000,0800,1600 #90 tab Lidocaine/Menthol [Icy Hot 4%-1% Patch] 1 patch TRANSDERM BID@0800,1999 #10 patch Clopidogrel [Plavix] 75 mg PO DAILY@0800 #30 tab Levothyroxine Sodium [Synthroid] 150 mcg PO DAILY@0600 #30 tab Ezetimibe [Zetia] 10 mg PO HS@1999 #30 tab Fluticasone Nasal [place] [Flonase Nasal [place]] 1 spray EA NOSTRIL DAILY@0800 #1 each Loratadine 10 mg PO DAILY@0800 #30 tab amLODIPine [Norvasc] 10 mg PO DAILY@0800 #30 tab Omeprazole 20 mg PO DAILY@0800 #30 tab Metoprolol Succinate (ER) [Toprol XL] 75 mg PO DAILY@0800 #90 tab Acetaminophen Tab [Tylenol] 500 mg PO Q8H PRN #30 tab PRN Reason: Pain Changed Tamsulosin [Flomax] 0.4 mg PO DAILY@0800 #30 cap Cholecalciferol [Vitamin D3 (125 Mcg = 5000 Iu)] 125 mcg PO DAILY@0800 30 Days #30 tab Melatonin 5 mg PO HS@1999 PRN #30 tab PRN Reason: Insomnia Discontinued guaiFENesin [Mucinex] 600 mg PO BID@08,1999 Zinc Sulfate [Orazinc] 220 mg PO DAILY@0800 Ascorbic Acid [Vitamin C] 500 mg PO DAILY@0800 Discharge Medication List Ziprasidone [Geodon] 40 mg PO BID #60 cap 05/31/22 [Rx] Acetaminophen Tab [Tylenol] 500 mg PO Q8H PRN #30 tab 06/01/22 [Rx] Aspirin EC [Ecotrin Low Dose] 81 mg PO DAILY@0800 #30 tab 06/01/22 [Rx] Cholecalciferol [Vitamin D3 (125 Mcg = 5000 Iu)] 125 mcg PO DAILY@0800 30 Days #30 tab 06/01/22 [Rx] Clopidogrel [Plavix] 75 mg PO DAILY@0800 #30 tab 06/01/22 [Rx] Ezetimibe [Zetia] 10 mg PO HS@1999 #30 tab 06/01/22 [Rx] Fluticasone Nasal [place] [Flonase Nasal [place]] 1 spray EA NOSTRIL DAILY@0800 #1 each 06/01/22 [Rx] INSULIN LISPRO (HumaLOG) [humaLOG] See Protocol SQ ACHS #10 ml 06/01/22 [Rx] Levothyroxine Sodium [Synthroid] 150 mcg PO DAILY@0600 #30 tab 06/01/22 [Rx] Lidocaine/Menthol [Icy Hot 4%-1% Patch] 1 patch TRANSDERM BID@799,1999 #10 patch 06/01/22 [Rx] Loratadine 10 mg PO DAILY@0800 #30 tab 06/01/22 [Rx] Losartan [Cozaar] 50 mg PO DAILY@0800 #30 tab 06/01/22 [Rx] Melatonin 5 mg PO HS@1999 PRN #30 tab 06/01/22 [Rx] Metoprolol Succinate (ER) [Toprol XL] 75 mg PO DAILY@0800 #90 tab 06/01/22 [Rx] Nicotine 7Mg/24Hr Patch [Habitrol] 1 patch TRANSDERM DAILY@799 #14 patch 06/01/22 [Rx] Omeprazole 20 mg PO DAILY@0800 #30 tab 06/01/22 [Rx] Tamsulosin [Flomax] 0.4 mg PO DAILY@0800 #30 cap 06/01/22 [Rx] amLODIPine [Norvasc] 10 mg PO DAILY@0800 #30 tab 06/01/22 [Rx] hydrALAZINE HCL 25 mg PO TID@0000,0800,1600 #90 tab 06/01/22 [Rx] Follow up Appointment(s)/Referral(s): None,Stated [Primary Care Provider] - 1-2 days Patient Instructions/Handouts: Psychotic Disorder (DC) Activity/Diet/Wound Care/Special Instructions: low sugar diet activity is restricted till you see your doctor we recommend to follow up with your psychiatrist as outpatient, please call to make appointment in one week Discharge Disposition: HOME SELF-CARE
[2022-06-03] MEDS: LORATADINE 10 MG TAB PO SCH (09:58)
[2022-06-03] MEDS: CHOLECALCIFEROL 125 MCG (5000 IU) TABLET PO SCH (09:58)
[2022-06-03] MEDS: NICOTINE 7MG/24HR PATCH TRANSDERM SCH (09:58)
[2022-06-03] MEDS: ASCORBIC ACID 500 MG TAB PO SCH (09:58)
[2022-06-03] MEDS: PANTOPRAZOLE 40 MG TABLET PO SCH (09:59)
[2022-06-03] MEDS: ZINC SULFATE 220 MG CAP PO SCH (10:00)
[2022-06-03] MEDS: ZIPRASIDONE 20 MG CAP PO SCH (10:59)
[2022-06-03] MEDS: ASPIRIN 81 MG PO SCH (11:00)
[2022-06-03] MEDS: CLOPIDOGREL 75 MG TAB PO SCH (11:00)
[2022-06-03] MEDS: amLODIPine 10 MG TAB PO SCH (11:01)
[2022-06-03 11:05] VITALS: BP 121/76; PULSE 121; RESP 18
[2022-06-03] MEDS: METOPROLOL SUCCINATE (ER) 25 MG TAB.ER.24H PO SCH (11:05)
[2022-06-03] MEDS: LOSARTAN 50 MG TAB PO SCH (11:10)
[2022-06-03] MEDS: hydrALAZINE HCL 25 MG TAB PO SCH (11:10)
[2022-06-03] MEDS: HEPARIN SODIUM,PORCINE/PF 5,000 UNIT/0.5 ML SYRINGE SQ SCH (11:10)
[2022-06-03 11:11] LABS: Glucose,Whole Blood 141 mg/dL (70-110)
--- NOTE | 2022-06-03 14:08 | P.PN ---
Progress Note - Text Progress Note Date: 06/03/22 Interval History: Patient was seen resting in bed and was directable and agreeable to speak with teletypewriter operator in her room. Patient continues to deny any suicidal or homicidal ideation, intention, and/or plan. She does display some odd behavior but is redirectable. She states to this provider that she has to use the restroom numerous times but has been able to go to the restroom without any incident and with a slow gait. She is currently not reporting any auditory or visual hallucinations. She was denying any paranoia or other delusions. She has been adherent with her medication is not endorsing any significant side effects. She is currently alert and oriented in all spheres. Mental Status Exam: General Appearance: Patient appears to be stated age is alert, directable, and cooperative. Behavior: Patient is calmly lying down in bed without any agitated behavior. Eye contact is appropriate. She did get up 3 times to use the restroom. Speech: Patient's speech is fluent and nonpressured. Mood/Affect: Mood is "I'm okay." Affect appears to be somewhat constricted Suicidality/Homicidality: Patient denies having any suicidal or homicidal ideation intent or plan. Perceptions: Patient denies any visual hallucinations and denies any auditory hallucinations Though content/process: There is no evidence of any delusional thought content and thought process is linear and goal-directed. Memory and concentration: AOX3, grossly intact for the purposes of this session Judgment and insight: Improving mildly Vital Signs Temp 97.5 F L 06/03/22 02:00 Pulse 121 H 06/03/22 11:04 Resp 18 06/03/22 11:04 BP 121/76 06/03/22 11:04 Pulse Ox 97 06/03/22 02:00 FiO2 Intake & Output 06/02/22 06/03/22 06/03/22 18:59 06:59 18:59 Intake Total 518 300 Balance 518 300 Intake: Oral 518 300 Other: Voiding Method Toilet Toilet Toilet Bedside Commode Bedside Commode Bedside Commode Diaper Diaper Diaper # Voids 1 3 Laboratory Results - Last 24 Hours 06/02/22 06/02/22 06/03/22 16:29 20:49 11:10 POC Glucose (mg/dL) 171 H 128 H 141 H POC Glu [employer]iv[employer] Trader ID Silvia San, Liv Heredia, Julieta Assessment Unspecified mood disorder Cluster B personality disorder Plan: -At this time patient DOES NOT meet criteria for inpatient psychiatric admission. The patient is not presenting with any acute psychotic symptoms, or any suicidal ideation, homicidal ideation, and is directable. She has been adherent with her medications. -Delirium precautions recommended with patient including - avoiding use of narcotics and COMPLIANCE EXAMINER sedatives, limit anticholinergic medications when possible, frequent re-orientation, minimize use of restraints, open window shades during the day and close them at night -Would recommend the following medication changes/additions: Continue Geodon 20 mg by mouth twice a day to address irritability and episodes of agitation. -Patient is cleared psychiatrically for discharge with recommendation for outpatient follow-up. Psychiatry will sign off at this time.
== END 2022-06-03 15:46 | DRG 179 ==
LOC: EC 14:49 → 4SSUR 21:35 → EEVIPCON 21:35 → 4SSUR 23:26
PROVIDERS: ADMIT Hospitalist; ATTEND Hospitalist
DX: U07.1 COVID-19 (principal); E03.9 Hypothyroidism, unspecified; E11.9 Type 2 diabetes mellitus without complications; E78.5 Hyperlipidemia, unspecified; F20.9 Schizophrenia, unspecified; F32.A Depression, unspecified; F60.89 Other specific personality disorders; F90.9 Attention-deficit hyperactivity disorder, unspecified type; G40.909 Epilepsy, unspecified, not intractable, without status epilepticus; I10 Essential (primary) hypertension; Z79.02 Long term (current) use of antithrombotics/antiplatelets; Z79.82 Long term (current) use of aspirin; Z79.890 Hormone replacement therapy; Z79.899 Other long term (current) drug therapy; Z87.891 Personal history of nicotine dependence; Z91.19 Patient's noncompliance with other medical treatment and regimen; Z91.14 Patient's other noncompliance with medication regimen; K21.9 Gastro-esophageal reflux disease without esophagitis; Z91.81 History of falling; Z28.310 Unvaccinated for COVID-19
CPT/HCPCS: 80048; 80076; 80306; 81001; 82075; 83735; 84145; 85025